=== PATIENT | female | born 1955 | race Caucasian/White ===

== ENCOUNTER 2018-07-01 09:00 | Outpatient (RCR) | payer BC, SELFPAY ==
--- NOTE | 2018-06-06 14:59 | PTTR_ITS ---
DATE: 06/06/18 SUBJECTIVE: Radha indicates today that she feels she is slowly gaining increased right UE/shoulder strength, but continues to struggle with active end range flexion. OBJECTIVE: Manual therapy: ([id number]). Mobs of the right glenohumeral jt. while in the supine position. Mobs included inferior and posterior glides, caudal distractions, and AAROM throughout all planes. Applied TFM to the anterior cuff and TP work throughout the frantz scapular region, upper traps and posterior cuff. Therapeutic procedures ([id number]). * x See flow sheet: focus was on scapular stabs and cuff strengthening. * Verbal and tactile cues were provided throughout today's session for proper positioning and isolation of specific muscles. * Declined ice at the end of today's session. Indicated she could ice at home. Direct treatment time: 45 min. Total treatment time: 45 min. SG/gc
--- NOTE | 2018-06-10 13:22 | PTTR_ITS ---
DATE: 06/10/18 SUBJECTIVE: Radha states that she is doing pretty well. She continues to c/o elbow pain with extension, although this is improving. She feels as though her pain level is also improving as is her ROM. OBJECTIVE: Manual therapy: ([id number]). mobilizations of right GH jt including posterior and inferior glides, distractions and ROM t/o all planes. I also worked her ROM in the prone position. STM t/o deltoid region and into her anterior shld/ pec region. Therapeutic procedures ([id number]). * x See flow sheet: for RTC strength and scap stabilizations. * x Provided skilled instruction in proper exercise performance: proper scapular positioning and postural cueing. Ended with cryo to shld x 10 min. Direct treatment time: 45 min Total treatment time: 55 min.
--- NOTE | 2018-06-13 08:45 | PTTR_ITS ---
DATE: 06/13/18 SUBJECTIVE: Patient reports she has no pain in her right shoulder. Has some pain in her neck and into the elbow. She states she has been compliant with her HEP and if she has a really busy day she will at least do the pulleys. She has follow up appointment with surgeon June 30. OBJECTIVE: Manual therapy: ([id number]). Right shoulder AROM at start of session was flexion 140 degrees, abduction 160 degrees, FIR to superior glutes, extension 35 degrees, ER 60 degrees, IR 45 degrees. Her left shoulder AROM is flexion 140 degrees, abduction 170, FIR to superior glutes, extension 35 degrees, ER 60 degrees, and IR 70 degrees. Performed right glenohumeral joint caudal distraction. Glenohumeral joint grade 2/3 inferior and posterior mobilizations. P/AAROM into flexion, scaption, ER, and IR. STM to anterior and posterior cuff, upper trapezius, and levator scapula. STM to posterior cuff, periscapular musculature, upper trapezius, and levator scapula in prone. Prone shoulder flexion mobilizations. TPR and CFM to the teres minor and infraspinatus provided. Right shoulder AROM after mobilizations and STM was flexion 150 degrees, abduction 170 degrees, ER 60 degrees, and IR 45 degrees. Therapeutic procedures ([id number]). [X] HEP review: Patient instructed in towel stretch for internal rotation and to also continue with sleeper stretch. [X] See flow sheet: Focused on right shoulder ROM, scapular stabilization , and rotator cuff strengthening. Incorporating eccentric control as well with promotion of end range strengthening. [X] Provided skilled instruction in proper exercise performance: for proper body mechanics and postural awareness. [X] Provided skilled manual cues to facilitate proper muscle recruitment and/or movement pattern: Continued with wellness portion of program x 15 minutes to complete ther-ex. Ended with cryotherapy to the right shoulder post session for 10 minutes. Reviewed further self mobilization stretches to incorporate increased flexion in prone and standing. Direct treatment time: 45 minutes Total treatment time: 70 minutes Nabila Bustamante, SPT Rosita Barnett, MPT
--- NOTE | 2018-06-17 08:45 | PTTR_ITS ---
DATE: June 17, 2018 SUBJECTIVE: Radha apologizes for being late to todays scheduled appt. She reports that she was able to get her arms down to her pillow overhead with the theracane stretch. She reports that this is the best that she has done in quite some time. She did not some increased soreness into her neck muscles following last treatment session. She knows that she continues to compensate with her cervical muscles due to the ongoing weakness of her shoulder. She is trying to keep an eye on this at home as well. OBJECTIVE: Manual therapy: ([id number]). Glenohumeral joint mobilization to the right shoulder in supine Gr III inferior and posterior glides. Caudal distractions and oscillations also provided. P/AAROM performed throughout all planes. CFM to the greater tuberosity and into the posterior cuff. TPR and STM provided throughout the entire anterior and posterior cuff. Remains restricted at end range consistent with capsular pattern. Emphasized frequent ROM to avoid restrictions from increasing. Therapeutic procedures: Completed Wellness portion of the program promoting RTC strength and scapular stabilization per flow sheet. Ended with cryotherapy post session for 10 minutes. Will continue to promote end range mobility as primary focus with aggressive stretching and mobilization within tolerance. Direct treatment time: 30 minutes Total treatment time: 70 minutes
--- NOTE | 2018-06-20 08:30 | PTTR_ITS ---
DATE: 06/20/18 SUBJECTIVE: Right shoulder is doing pretty good, feels like she is moving it more now. Elbow is slowly improving. Discussed avoiding lifting with palm down to avoid irritating extension soft tissue in the elbow region. OBJECTIVE: Manual therapy: ([id number]). Mobilization of right boris-hum jt while in supine consisting of inferior / posterior glides and caudal distraction. Performed A/AA/ PROM throughout all planes. TFM to anterior cuff / deltoids and PRT to posterior cuff, TPM to upper traps and lev scap while in prone. Therapeutic procedures ([id number]). * x See flow sheet: Focus on AAROM, scap stabilization and rotator cuff strengthening per protocol. * x Provided skilled instruction in proper exercise performance * x Provided skilled manual cues to facilitate proper muscle recruitment and/ or movement pattern * Ended session with cryotherapy x 10 minutes to right shoulder while in seated position. Direct treatment time: 50 minutes Total treatment time: 60 minutes
--- NOTE | 2018-06-24 08:30 | PTTR_ITS ---
DATE: SUBJECTIVE: Really feels like her shoulder is doing better. ROM and strength are improving. OBJECTIVE: Manual therapy: ([id number]). Mobilization of right boris-hum jt while in supine position consisting on inferior and posterior glides, caudal and lateral distraction, AA/AROM throughout all planes. TFM to anterior cuff, brief PRT to posterior cuff and TPM to upper traps / lev scap. Performed rhythmic stabs at 80, 90 and 100 degrees flexion against min resistance. Therapeutic procedures ([id number]). * x See flow sheet: Focus was on AAROM, scap stabilization and rotator cuff strengthening. * x Provided skilled instruction in proper exercise performance * x Provided skilled manual cues to facilitate proper muscle recruitment and/ or movement pattern Ended session with cryotherapy x 10 minutes while in seated position. Direct treatment time: 45 minutes Total treatment time: 55 minutes
--- NOTE | 2018-06-27 08:48 | PTTR_ITS ---
DATE: 06/27/18 SUBJECTIVE: Radha indicates she was muscle sore throughout bilateral UEs after her last P.T. session. Indicates her biggest complaint, at this point in time is of right elbow irritation. This comes and goes with activity. Indicates her shoulder joint is actually doing quite well. She is concerned that when she sees Dr. Sutton next week that he will request that she have a manipulation. States she feels as though her ROM has definitely improved. OBJECTIVE: Manual therapy: ([id number]). Mobs of the right glenohumeral jt while in supine. Mobs included inferior and posterior glides, caudal distraction, lateral distraction, and AA/PROM throughout all planes. This was performed in supine and prone positions. Did perform positional release techniques to the posterior cuff as well as brief trigger point work to the rhomboids and upper trap/levator scap region while in prone. Brief TFM to the anterior cuff was performed for desensitization. Therapeutic procedures ([id number]). * x See flow sheet: focus was on AAROM, scap stabilization and cuff strengthening. * Verbal and tactile cues were provided throughout session for proper positioning and isolation of specific muscles. * AAROM was noted to be approximately 10 less than the contralateral side with end range flexion. * Ended with cryotherapy x10 minutes applied to the right shoulder while seated at no charge. Direct treatment time: 50 min. Total treatment time: 60 min. SG/gc
--- NOTE | 2018-07-01 09:00 | PTTR_ITS ---
DATE: 07/01/18 See note filed in chart Manual therapy: ([id number]). GH joint mobilization grade 2-3, inferior/ posterior glides, caudal distractions, P/AAROM performed throughout all planes, PNF D1-D2, soft tissue anterior/posterior cuff, trigger point work. Held on further stabilization today due to continued findings of adhesive capsulitis, (+ ) capsular pattern increasing pain and restriction consistent with capsular pattern. Feel a manipulation might be needed at this time. Will follow up with Dr. Sutton tomorrow, will proceed per his order following this consultation. Direct treatment time: 25 mins Total treatment time: 25 mins KW/dl
== END 2018-07-05 23:59 | disposition home or self-care (01) ==
LOC: PT 09:00
PROVIDERS: PCP Family Medicine; Referring Provider Student in an Organized Health Care Education/Training Program; Visit Provider Student in an Organized Health Care Education/Training Program
DX: Z47.89 Encounter for other orthopedic aftercare (principal); M75.121 Complete rotator cuff tear or rupture of right shoulder, not specified as traumatic; M19.011 Primary osteoarthritis, right shoulder
CPT/HCPCS: 97110; 97140

== ENCOUNTER 2018-07-09 09:35 | Day surgery (SDC) | payer BC, SELFPAY ==
[2018-07-09] VITALS (7 sets, daily range): BP systolic 129–148; BP diastolic 49–70; PULSE 65–72; RESP 13–19; TEMP 36.2–36.6; O2SAT 95–97
--- NOTE | 2018-07-09 10:23 | W.PM.DSUDISC ---
Discharge Plan Discharge Details Reason For Visit: (R) SHOULDER FROZEN SHOULDER Attending Provider: Bassam Sutton Primary Care Provider: Jose France Disposition Patient Disposition: HOME Condition: Good Home Meds and New Rx's Prescriptions: Continue lancets 1 EACH misc 1 ea Miscellaneous DAILY Qty: 100 RF: 4 blood sugar diagnostic [OneTouch Ultra Test] 1 EACH strip 1 ea Miscellaneous BID Qty: 100 RF: 4 fexofenadine [Poonam Allergy] 180 MG tablet 180 mg PO DAILY RF: 0 PROVENTIL HFA 18 GM HFA.AER.AD 2 puff Inhalation Q4H PRN Qty: 1 RF: 5 metformin 1,000 MG tablet 1,000 mg PO BID Qty: 180 RF: 3 lisinopril 5 MG tablet 5 mg PO DAILY Qty: 90 RF: 3 glipizide 5 MG tablet 5 mg PO BID Qty: 180 RF: 4 triamcinolone acetonide [Nasacort] 10.8 ML aerosol,spray 10.8 ml NS DAILY PRN PRNRF: 0 ibuprofen 800 MG tablet 800 mg PO TID Qty: 180 RF: 3 acetaminophen [Mapap Extra Strength] 500 MG tablet 1,000 mg PO Q8H PRN PRNQty: 180 RF: 0 oxycodone 5 MG tablet 2.5 - 5 mg PO Q4H PRN PRN (Reason: Pain) Qty: 10 RF: 0 Discharge Instructions Additional Instructions: Activity: You may move the arm as tolerated. You will have a sling for comfort. You should start physical therapy within 2 days. Medications: You should take Tylenol and Ibuprofen. Oxycodone for breakthrough pain. Follow-up: 1 -2 weeks Equipment/Supplies: Sling Activity:: Activity as Tolerated Diet:: As Tolerated Discharge Orders Discharge Orders: Discharge Order (Routine); Ordered 07/09/18 Ordered By: Bassam Sutton DS: Diagnosis Discharge Diagnosis (1) Secondary adhesive capsulitis of right shoulder: Start date: 07/09/18 Status: Acute
[2018-07-09] MEDS: Lactated Ringers 1,000 ML 80 ML IV ×2 (10:25→11:26)
[2018-07-09] MEDS: methylPREDNISolone ACETATE 80 MG/ML VIAL (10:40)
[2018-07-09] MEDS: Bupivacaine 0.5% Pres-Free 30 ML VIAL (10:40)
--- NOTE | 2018-07-10 07:35 | ROE_ITS ---
Date of service: 07/09/18 Time of Service: 11:31 Operative Note Date of procedure: 07/09/18 Pre-op diagnosis: Right Shoulder Adhesive Capsulitis Post-op diagnosis: same Procedure: Right Shoulder Manipulation Under Anesthesia with Intraarticular Injection Surgeon: Bassam Sutton Anesthesia: ELLY Estimated blood loss (mL): 0 Pathology: none sent Complications: None Patient was transported to: PACU Patient's condition: stable Indications: Radha is a 63 year old female with adhesive capsulitis of the right shoulder. A trial of nonoperative and conservative treatment options were attempted without improvement. Given the persistence of dysfunction, I recommended a manipulation under anesthesia with injection. I discussed the risk of the procedure to include recurrence, stiffness, weakness, tendon rupture , fracture. Despite these risks, the patient elects to proceed. Findings: PREOP RANGE OF MOTION: Abduction = 70, Forward Flexion = 110, External Rotation = 20 POSTOP RANGE OF MOTION: Abduction = 170, Forward Flexion = 180, External Rotation = 75 Procedure Description: Radha was greeted in the preoperative holding area. Consent was reviewed with the patient and signed. History physical was updated. Correct site was marked. Patient was then transferred back to the operative suite. The correct site was identified and a timeout was performed for safety and per hospital protocol. A general anesthetic was administered. Intra-articular injection of the right shoulder was performed using an anterior approach and a spinal needle. I was able to inject 6 cc of 0.5% bupivacaine along with 80 mg of Depo-Medrol without difficulty. A Band-Aid was applied. Preoperative range of motion was checked and is noted in the above findings section. The manipulation was then performed in standard protocol focusing first on forward flexion, followed by abduction, followed by external rotation. This was cycled through a few times with notable crepitus and adhesion disruption both audible and palpable. Postoperative range of motion was then measured and is documented above in the findings. A simple sling was applied. Radha tolerated procedure well and was transferred back to the PACU in stable condition. Physical therapy will begin immediately home-based exercises are provided to the patient.
== END 2018-07-09 12:24 | disposition home or self-care (01) ==
PROVIDERS: PCP Family Medicine; Visit Provider Student in an Organized Health Care Education/Training Program
PROC: (CPT 23700; principal; 2018-07-09 13:20)
DX: M75.01 Adhesive capsulitis of right shoulder (principal); E11.9 Type 2 diabetes mellitus without complications
CPT/HCPCS: 20610; 23700; J1040; J1885; L3650

== ENCOUNTER 2018-10-15 00:45 | Outpatient (CLI) | payer BC, SELFPAY ==
--- NOTE | 2018-10-15 07:52 | DI.MRI_ITS ---
SYMPTOMS/DIAGNOSIS: WEAKNESS AND PARESTHESIAS, LEFT ARM, LEFT CERVICAL RADICULOPATHY, M54.12 MRI OF THE CERVICAL SPINE: T1, T2, FLAIR, STIR and T2 3D sagittal and gradient-echo axial sequences were performed. Comparison is made with plain films dated May,. Exam is limited by patient motion. C2-3 and C3-4 levels are unremarkable. There is slight disc bulging at C4-5. There are facet degenerative changes, greater on the left side, causing neural foraminal narrowing. At C5-6, there are disc osteophytes projecting mainly laterally, causing bilateral neural foraminal narrowing. Mild disc bulging is seen at C6-7. C7-T1 and T1-2 are unremarkable. There is no significant central canal stenosis. IMPRESSION: Degenerative disc osteophytes and facet degenerative changes cause left neural foraminal narrowing at C4-5 and bilateral neural foraminal narrowing at C5-6. No disc herniation is seen. The cord signal appears normal.
== END 2018-10-15 01:05 ==
PROVIDERS: PCP Family Medicine; Visit Provider Family Medicine
DX: R29.898 Other symptoms and signs involving the musculoskeletal system (principal); R20.9 Unspecified disturbances of skin sensation; M54.12 Radiculopathy, cervical region; M50.321 Other cervical disc degeneration at C4-C5 level; M50.322 Other cervical disc degeneration at C5-C6 level
CPT/HCPCS: 72141

== ENCOUNTER 2018-12-06 11:05 | Outpatient (CLI) | payer BC, SELFPAY ==
[2018-12-06 13:41] LABS: Hemoglobin A1C 6.8 % (4.5-6.2)
== END 2018-12-06 11:25 ==
PROVIDERS: PCP Family Medicine; Visit Provider Family Medicine
DX: E11.9 Type 2 diabetes mellitus without complications (principal)
CPT/HCPCS: 36415; 83036

== ENCOUNTER 2019-02-11 08:57 | Outpatient (CLI) | payer BC, SELFPAY ==
--- NOTE | 2019-02-11 06:00 | DI.RAD_ITS ---
SYMPTOM/DIAGNOSIS: CERVICAL RADICULOPATHY, CERVICAL EPIDURAL STEROID INJECTION C-ARM: Fluoroscopy Time: 27.1sec, 8.49mGy Fluoroscopy was utilized by Dr. Rodriguez during the performance of a cervical epidural steroid injection. Please refer to the procedure report for complete details.
[2019-02-11 09:04] VITALS: BP 124/57; PULSE 66; RESP 22; TEMP 36.5; O2SAT 96
[2019-02-11 09:39] VITALS: BP 133/52; PULSE 72; RESP 18; O2SAT 100
--- NOTE | 2019-02-11 09:41 | PDOC.PAIN_ITS ---
Pain Clinic Procedure Note Current Active Problems Problem Status Onset Left cervical radiculopathy Chronic Cervical Epidural Steroid Injection KYLE HAMM has been referred to the [facility] for interlaminar cervical epidural steroid injection. COMMENTS: I review her Pain Clinic evaluation by Tyson Leticia from 02/04/19 and her most recent cervical spine MRI. Patient was interviewed and the medical record reviewed. There were no medical, pharmacologic, radiographic or other structural contraindications to attempting fluoroscopically guided epidural steroid injection. Risks and expected side effects as well as potential benefit of the procedure were reviewed and voiced concerns addressed. The printed consent form was signed and witnessed. Standard time-out procedure was performed. The patient was placed in the prone position on the fluoroscopy table and automa ximena blood pressure cuff and pulse oximeter applied. The skin entry point for entering the epidural space by a midline C7-T1 interlaminar approach was identified under fluoroscopy and marked. Following thorough Chlorhexadine preparation of the skin and draping and 1% lidocaine infiltration of the skin entry point and subcutaneous tissues, an 18 gauge Tuohy needle was placed under fluoroscopic guidance and with loss of resistance technique into the epidural space. Upon needle placement and loss of resistance there were no paresthesiae or return of blood or CSF through the needle. 1ml of Omnipaque 240 were injected with clear epidural spread in the A/P, oblique views. 15mg of preservative-free Dexamethasone with 1ml sterile normal saline were injected through the needle with no unusual discomfort expressed. The needle was removed without difficulty. A bandage was placed. Vital signs were stable throughout the procedure and were as recorded in the docflowsheet by the nursing staff. If given, dosages of intravenous drugs for anxiolysis and analgesia were documented in MAR. Follow up plans and appointments were discussed. Post procedure instruction was given as documented in nursing documentation and having met discharge criteria and was discharged from the [facility]. COMMENTS: If this procedure is found to be helpful, it can be completed up to 3 times per 12 months. CC: Jose France MD
[2019-02-11] MEDS: Dexamethasone Sod. Phos./Pres-Free 10 MG/ML VIAL IJ (09:44)
[2019-02-11] MEDS: Omnipaque 240 MG/ML 50 ML BTL IJ (09:45)
== END 2019-02-11 09:17 ==
PROVIDERS: PCP Family Medicine; Visit Provider Preventive Medicine Occupational Medicine
DX: M54.12 Radiculopathy, cervical region (principal)
CPT/HCPCS: 62321; 72040; Q9967

== ENCOUNTER 2019-06-26 08:13 | Outpatient (CLI) | payer BC, SELFPAY ==
[2019-06-26 12:56] LABS: Hemoglobin A1C 6.6 % (4.5-6.2)
[2019-06-26 13:08] LABS: Anion Gap 11.4 mmol/L (3-11); BUN 16 mg/dL (7-18); CO2 25.6 mmol/L (21.0-32.0); CREATININE 0.57 mg/dL (0.55-1.02); Calculated LDL 169 mg/dL; Chloride 101 mmol/L (98-107); Cholesterol 241 mg/dL (50-200); Glucose 128 mg/dL (70-100); HDL Cholesterol 47 mg/dL (40-60); Potassium 4.8 mmol/L (3.5-5.1); Sodium 138 mmol/L (136-145); Triglyceride 126 mg/dL (30-150)
== END 2019-06-26 08:33 ==
PROVIDERS: PCP Family Medicine; Visit Provider Family Medicine
DX: E11.9 Type 2 diabetes mellitus without complications (principal); I10 Essential (primary) hypertension
CPT/HCPCS: 36415; 80048; 80061; 83721; 83036

== ENCOUNTER 2019-12-25 00:15 | Outpatient (CLI) | payer BC, SELFPAY ==
[2019-12-25 10:47] LABS: Calculated LDL 161 mg/dL (<100); Cholesterol 236 mg/dL (<200); HDL Cholesterol 47 mg/dL (40-60); Triglyceride 144 mg/dL (<150)
[2019-12-25 12:29] LABS: Hemoglobin A1C 7.1 % (3.8-5.6)
== END 2019-12-25 00:35 ==
PROVIDERS: PCP Family Medicine; Visit Provider Family Medicine
DX: E11.9 Type 2 diabetes mellitus without complications (principal)
CPT/HCPCS: 36415; 80061; 83036

== ENCOUNTER 2020-05-24 02:36 | Outpatient (CLI) | payer BC, SELFPAY ==
[2020-05-24 12:45] LABS: Hemoglobin A1C 6.7 % (3.8-5.6)
== END 2020-05-24 02:56 ==
PROVIDERS: PCP Family Medicine; Visit Provider Family Medicine
DX: E11.9 Type 2 diabetes mellitus without complications (principal)
CPT/HCPCS: 36415; 83036

== ENCOUNTER 2020-08-17 01:49 | Outpatient (CLI) | payer BC, SELFPAY ==
[2020-08-17 12:59] LABS: Hemoglobin A1C 6.7 % (<5.7)
[2020-08-17 13:20] LABS: COMMENT (LAB VIEW ONLY) 20.66 mg/dL; Microalb ug/mg Crea 21.8 ug/mg Cr
== END 2020-08-17 02:09 ==
PROVIDERS: PCP Nurse Practitioner; Visit Provider Nurse Practitioner
DX: E11.9 Type 2 diabetes mellitus without complications (principal)
CPT/HCPCS: 36415; 82043; 82565; 82570; 83036

== ENCOUNTER 2020-09-16 15:07 | Outpatient (CLI) | payer BC, SELFPAY ==
--- NOTE | 2020-09-16 13:15 | DI.RAD_ITS ---
EXAM: XR HAND RT LIMITED CLINICAL HISTORY: right little finger mass in palm. TECHNIQUE: 2D digital imaging was performed. COMPARISON: No exams were available for comparison FINDINGS: BONES: No acute fracture is present. No bony destructive lesion is seen. JOINTS: No dislocation present. SOFT TISSUE: Normal. No evidence of a soft tissue mass. IMPRESSION: No evidence of a soft tissue mass or abnormal soft tissue calcification. If there is continued anay rn, an MRI may be obtained for further evaluation. DATA REPOSITORY: RADIATION DOSE DELIVERED:
== END 2020-09-16 15:27 ==
PROVIDERS: PCP Nurse Practitioner; Referring Provider Nurse Practitioner; Visit Provider Physician Assistant
DX: R22.31 Localized swelling, mass and lump, right upper limb (principal)
CPT/HCPCS: 73120

== ENCOUNTER 2020-10-12 07:55 | Day surgery (SDC) | payer BC, SELFPAY ==
[2020-10-12 07:56] VITALS: BP 150/82; PULSE 62; RESP 20; TEMP 36.7; O2SAT 98
--- NOTE | 2020-10-12 09:17 | PDOC.DSDIS_ITS ---
Discharge Plan Disposition Patient Disposition: HOME Condition: Good Discharge Details Reason For Visit: Right little finger ganglion cyst & trigger finger Attending Provider: Bassam Sutton Primary Care Provider: Tasneem Chaudhary Home Meds and New Rx's Prescriptions: New acetaminophen 500 mg tablet 1,000 mg PO Q8H PRN (Reason: pain) Qty: 60 RF: 2 ibuprofen 600 mg tablet 600 mg PO TID PRN (Reason: pain) Qty: 60 RF: 0 Continued metformin 1,000 mg tablet 1,000 mg PO BID Qty: 180 RF: 3 omega 8-txs-oda-fish oil [Fish Oil] 1,200 (144-216) mg capsule 1 cap PO DAILY RF: 0 Centrum Silver 0.4-300-250 mg-mcg-mcg tablet 1 tab PO DAILY RF: 0 (DME) lancets 1 EACH misc 1 ea Miscellaneous DAILY Qty: 100 RF: 4 (DME) OneTouch Ultra Test 1 EACH strip 1 ea Miscellaneous BID Qty: 100 RF: 4 fexofenadine [Poonam Allergy] 180 MG tablet 180 mg PO DAILY RF: 0 glipizide 5 mg tablet 5 mg PO BID Qty: 180 RF: 4 albuterol sulfate [Proventil HFA] 90 mcg/actuation HFA aerosol inhaler 2 puff IH Q4H PRN (Reason: bronchospasm) Qty: 18 RF: 4 triamcinolone acetonide [Nasacort] 10.8 ML aerosol,spray 10.8 ml NS DAILY PRN PRNRF: 0 gabapentin 300 mg Capsule 300 mg PO BID RF: 0 Glucosamine Chondroitin 550-30-1 mg Capsule 2 cap PO DAILY RF: 0 Discontinued ibuprofen 800 mg tablet 800 mg PO TID Qty: 180 RF: 3 acetaminophen [Mapap Extra Strength] 500 MG tablet 1,000 mg PO Q8H PRN PRNQty: 180 RF: 0 Discharge Instructions Stand Alone Forms: Herman Sierra, Ángel Aj (DSU) Referrals: Bassam Sutton MD [ [facility] STAFF PHYSICIAN] - Activity:: Elevate Remove Dressings/Wound Care:: 72 hours Shower/Bathe:: 72 hours Diet:: As Tolerated Discharge Orders Discharge Orders: Discharge Order (Routine); Ordered 10/12/20 Ordered By: Chelsea Pratt Discharge Data Discharge Date/Time-TO BE ENTERED AT DEPARTURE: 10/12/20 10:45 Discharge Comment: Pt was escorted out to her daughter's car. DS: Diagnosis Discharge Diagnosis (1) Ganglion of flexor tendon sheath of right little finger: Status: Acute (2) Tendon nodule: Status: Acute
[2020-10-12 09:51] VITALS: BP 156/89; PULSE 64; RESP 18; O2SAT 98
[2020-10-12 10:00] VITALS: BP 160/66; PULSE 64; RESP 20; O2SAT 98
[2020-10-12] MEDS: Sodium Bicarbonate 50 MEQ/50 ML VIAL (10:10)
[2020-10-12 10:15] VITALS: BP 134/76; PULSE 72; RESP 20; O2SAT 98
--- NOTE | 2020-10-12 16:54 | W.PM.OP ---
Date of service: 10/12/20 Time of Service: 10:54 Operative Note Operative Note DATE OF PROCEDURE: 10/12/20 PRE-OP DIAGNOSIS: Right Little Finger Cyst POST-OP DIAGNOSIS: same PROCEDURE: Cyst excision from flexor tendon of right little finger with A1 jg release SURGEON: Bassam Sutton ANESTHESIA: local ESTIMATED BLOOD LOSS: 0 PATHOLOGY: none sent TOURNIQUET TIME: 0 COMPLICATIONS: None Patient was transported to: same day Patient's condition: stable Indications: I have seen Radha in clinic for symptoms of flexor tendon cyst. The catching, clicking, locking, and pain limited function. I discussed surgical excision with trigger finger release with the patient. I reviewed the risks of the procedure to include, but not limited to, bleeding, infection, pain, stiffness, incomplete release, damage to nerves or vessels, continued catching, recurrence. Despite these risks, the patient elected to proceed. Findings: There is a ganglion cyst seen just proximal and radial to the A1 jg. Is also somewhat superficial. It was identified dissected away from the surrounding tissue and removed. The A1 jg was released and cyst material and synovitis was resected directly from the tendon sheath. Procedure Description: Radha was greeted in the preoperative holding area where the correct side was identified and marked. The consent was reviewed with the patient and signed. All questions were answered. Radha was taken back to the operating room. The patient was placed into the supine position on the operating room table with the right arm on an arm board. All bony prominences were well padded. No prophylactic antibiotics were administered since this was a clean, elective hand surgical case. The right arm was then prepped with Chloraprep and draped in a standard fashion with stockinette and extremity drape. A timeout to confirm correct identity, side and site, procedure, allergies, anesthesia, and medical concerns was performed. The surgical site was marked as a longitudinal incision directly over the A1 jg of the involved digit. This was confirmed with palpation during finger flexion. This area, overlying the metacarpal head, was then anesthetized with 1% Lidocaine with epinephrine and buffered with sodium bicarbonate. The patient tolerated this well and once the anesthetic had setup, the procedure began. A longitudinal incision was made through skin only, approximately 1cm. The deep tissues were dissected bluntly. The cyst was easily identifiable slightly superficial and radial to the A1 jg. This was dissected away from surrounding tissue. The cyst was evacuated of its thickened, clear fluid. The cyst sac was followed down to the proximal edge of the A1 jg. At this point it was transected. Dissection was made around the A1 jg. There were no crossing structures over the A1 jg. The proximal edge of the jg was identified and the jg was incised with tenotomy scissors. There was a release of the tendons once this was fully released. The tendons were then removed from the wound and inspected. Excess synovium was resected. There is also a large cyst capsule which seem to follow along the tendon some cells. This was pulled proximally and then transected. The tendons were then returned and the patient was asked to move the finger into deep flexion and back to extension. There was no signs of catching nor missed cyst capsule. There is no significant bleeding. The wound was then irrigated and the skin was closed with a 4-0 Nylon. This was dressed with gauze and a Conform dressing. The patient tolerated the procedure well and was returned to the Same Day Surgery area in a stable condition suffering no known complication.
== END 2020-10-12 10:45 | disposition home or self-care (01) ==
PROVIDERS: PCP Nurse Practitioner; Visit Provider Student in an Organized Health Care Education/Training Program
PROC: (CPT 26160; principal; 2020-10-12 10:45)
PROC: (CPT 26055; 2020-10-12 10:45)
DX: M67.441 Ganglion, right hand (principal)
CPT/HCPCS: 26160

== ENCOUNTER 2020-10-26 07:51 | Day surgery (SDC) | payer BC, SELFPAY ==
[2020-10-26 08:03] VITALS: BP 143/62; PULSE 59; RESP 18; TEMP 36.3; O2SAT 99
--- NOTE | 2020-10-26 08:07 | PDOC.DSDIS_ITS ---
Documented by User: Chelsea Pratt 10/26/20 08:09 Discharge Plan Disposition Patient Disposition: HOME Condition: Good Discharge Details Reason For Visit: Left middle finger trigger finger Attending Provider: Bassam Sutton Primary Care Provider: Tasneem Chaudhary Home Meds and New Rx's Prescriptions: Continued metformin 1,000 mg tablet 1,000 mg PO BID Qty: 180 RF: 3 omega 4-nju-gwc-fish oil [Fish Oil] 1,200 (144-216) mg capsule 1 cap PO DAILY RF: 0 Centrum Silver 0.4-300-250 mg-mcg-mcg tablet 1 tab PO DAILY RF: 0 (DME) lancets 1 EACH misc 1 ea Miscellaneous DAILY Qty: 100 RF: 4 (DME) OneTouch Ultra Test 1 EACH strip 1 ea Miscellaneous BID Qty: 100 RF: 4 fexofenadine [Poonam Allergy] 180 MG tablet 180 mg PO DAILY RF: 0 glipizide 5 mg tablet 5 mg PO BID Qty: 180 RF: 4 albuterol sulfate [Proventil HFA] 90 mcg/actuation HFA aerosol inhaler 2 puff IH Q4H PRN (Reason: bronchospasm) Qty: 18 RF: 4 triamcinolone acetonide [Nasacort] 10.8 ML aerosol,spray 10.8 ml NS DAILY PRN PRNRF: 0 gabapentin 300 mg Capsule 300 mg PO BID RF: 0 Glucosamine Chondroitin 550-30-1 mg Capsule 2 cap PO DAILY RF: 0 acetaminophen 500 mg tablet 1,000 mg PO Q8H PRN (Reason: pain) Qty: 60 RF: 2 ibuprofen 600 mg tablet 600 mg PO TID PRN (Reason: pain) Qty: 60 RF: 0 Discharge Instructions Stand Alone Forms: Ángel Gardner (DSCalvin) Referrals: Bassam Sutton MD [ [facility] STAFF PHYSICIAN] - Activity:: Elevate Remove Dressings/Wound Care:: 72 hours Shower/Bathe:: 72 hours Diet:: As Tolerated Discharge Orders Discharge Orders: Discharge Order (Routine); Ordered 10/26/20 Ordered By: Chelsea Pratt Discharge Data Discharge Date/Time-TO BE ENTERED AT DEPARTURE: 10/26/20 10:00 DS: Diagnosis Discharge Diagnosis (1) Trigger finger, left middle finger: Status: Acute Documented by User: Bassam Sutton MD 10/26/20 10:35 Discharge Plan Disposition Patient Disposition: HOME Condition: Good Discharge Details Reason For Visit: Left middle finger trigger finger Attending Provider: Bassam Sutton Primary Care Provider: Tasneem Chaudhary Home Meds and New Rx's Prescriptions: Continued metformin 1,000 mg tablet 1,000 mg PO BID Qty: 180 RF: 3 omega 6-rqg-ymx-fish oil [Fish Oil] 1,200 (144-216) mg capsule 1 cap PO DAILY RF: 0 Centrum Silver 0.4-300-250 mg-mcg-mcg tablet 1 tab PO DAILY RF: 0 (DME) lancets 1 EACH misc 1 ea Miscellaneous DAILY Qty: 100 RF: 4 (DME) OneTouch Ultra Test 1 EACH strip 1 ea Miscellaneous BID Qty: 100 RF: 4 fexofenadine [Poonam Allergy] 180 MG tablet 180 mg PO DAILY RF: 0 glipizide 5 mg tablet 5 mg PO BID Qty: 180 RF: 4 albuterol sulfate [Proventil HFA] 90 mcg/actuation HFA aerosol inhaler 2 puff IH Q4H PRN (Reason: bronchospasm) Qty: 18 RF: 4 triamcinolone acetonide [Nasacort] 10.8 ML aerosol,spray 10.8 ml NS DAILY PRN PRNRF: 0 gabapentin 300 mg Capsule 300 mg PO BID RF: 0 Glucosamine Chondroitin 550-30-1 mg Capsule 2 cap PO DAILY RF: 0 acetaminophen 500 mg tablet 1,000 mg PO Q8H PRN (Reason: pain) Qty: 60 RF: 2 ibuprofen 600 mg tablet 600 mg PO TID PRN (Reason: pain) Qty: 60 RF: 0 Discharge Instructions Stand Alone Forms: Herman Cheng Finger Release, Ángel Aj (DSU) Referrals: Bassam Sutton MD [ [facility] STAFF PHYSICIAN] - Activity:: Elevate Remove Dressings/Wound Care:: 72 hours Shower/Bathe:: 72 hours Diet:: As Tolerated Discharge Orders Discharge Orders: Discharge Order (Routine); Ordered 10/26/20 Ordered By: Chelsea Pratt Discharge Data Discharge Date/Time-TO BE ENTERED AT DEPARTURE: 10/26/20 10:00
[2020-10-26 09:17] VITALS: BP 143/54; PULSE 77; RESP 20; O2SAT 99
[2020-10-26 09:33] VITALS: BP 145/48; PULSE 66; RESP 22; O2SAT 97
[2020-10-26] MEDS: Sodium Bicarbonate 50 MEQ/50 ML VIAL (09:36)
--- NOTE | 2020-10-26 10:35 | W.PM.OP ---
Date of service: 10/26/20 Time of Service: 09:45 Operative Note Operative Note DATE OF PROCEDURE: 10/26/20 PRE-OP DIAGNOSIS: Left Middle Finger Trigger Finger POST-OP DIAGNOSIS: same PROCEDURE: Trigger Finger Release - Left Middle Finger SURGEON: Bassam Sutton ANESTHESIA: local ESTIMATED BLOOD LOSS: 0 PATHOLOGY: none sent TOURNIQUET TIME: 0 COMPLICATIONS: None Patient was transported to: same day Patient's condition: stable Indications: I have seen Radha in clinic for symptoms of a trigger finger. The catching, clicking, locking, and pain limited function. The diagnosis of trigger finger was evident. The symptoms had not responded to conservative measures. I discussed trigger finger release with the patient. I reviewed the risks of the procedure to include, but not limited to, bleeding, infection, pain, stiffness, incomplete release, damage to nerves or vessels, continued catching, recurrence. Despite these risks, the patient elected to proceed. Findings: There was a tightened A1 jg which was released. The flexor tendons were inspected and the patient was able to move the finger without any catching, clicking, or locking. Procedure Description: Radha was greeted in the preoperative holding area where the correct side was identified and marked. The consent was reviewed with the patient and signed. All questions were answered. Radha was taken back to the operating room. The patient was placed into the supine position on the operating room table with the left arm on an arm board. All bony prominences were well padded. No prophylactic antibiotics were administered since this was a clean, elective hand surgical case. The left arm was then prepped with Chloraprep and draped in a standard fashion with stockinette and extremity drape. A timeout to confirm correct identity, side and site, procedure, allergies, anesthesia, and medical concerns was performed. The surgical site was marked as a longitudinal incision directly over the A1 jg of the left middle finger. This was confirmed with palpation during finger flexion. This area, overlying the metacarpal head, was then anesthetized with 1% Lidocaine. The patient tolerated this well and once the anesthetic had setup, the procedure began. A longitudinal incision was made through skin only, approximately 1cm. The deep tissues were dissected bluntly. Once the A1 jg and flexor tendons were identified the soft tissue including neurovascular structures were retracted medially and laterally. There were no crossing structures over the A1 jg. The proximal edge of the gj was identified and the jg was incised with tenotomy scissors. There was a release of the tendons once this was fully released. The tendons were then removed from the wound and inspected. Excess synovium was resected. The tendons were then returned and the patient was asked to move the finger into deep flexion and back to extension. There was no recreation of the pre-operative symptoms. The hand was then once more inspected for any A0 jg or area of possible constriction. The wound was then irrigated and the skin was closed with a 4-0 Nylon. This was dressed with gauze and a Conform dressing. The patient tolerated the procedure well and was returned to the Same Day Surgery area in a stable condition suffering no known complication.
== END 2020-10-26 10:00 | disposition home or self-care (01) ==
PROVIDERS: PCP Nurse Practitioner; Visit Provider Student in an Organized Health Care Education/Training Program
PROC: (CPT 26055; principal; 2020-10-26 09:30)
DX: M65.332 Trigger finger, left middle finger (principal)
CPT/HCPCS: 26055

== ENCOUNTER 2020-12-27 10:33 | Outpatient (CLI) | payer BC, SELFPAY ==
--- NOTE | 2020-12-27 09:30 | DI.RAD_ITS ---
EXAM: XR FINGER LT MIDDLE CLINICAL HISTORY: left middle finger pain at PIP. TECHNIQUE: 2D digital imaging was performed. COMPARISON: CR XR HAND RT LIMITED from 09/16/2020 FINDINGS: There is no evidence of fracture or dislocation no radiopaque foreign body. No osseous lesions. Min imal degenerative changes. No significant joint space narrowing. No osteophytes. There is a small degenerative subarticular cyst in the head of the proximal phalanx noted, this measures 2 millimeters . Another 3 millimeter degenerative subarticular cyst is seen at the level of the IP joint within th e head of the middle phalanx. No radiopaque foreign body. No ominous osseous lesions IMPRESSION: Mild degenerative changes, as described above. DATA REPOSITORY: RADIATION DOSE DELIVERED:
== END 2020-12-27 10:34 | disposition home or self-care (01) ==
LOC: DIORS 10:33
PROVIDERS: PCP Nurse Practitioner; Referring Provider Nurse Practitioner; Visit Provider Physician Assistant
DX: M79.645 Pain in left finger(s) (principal); M65.322 Trigger finger, left index finger
CPT/HCPCS: 73140

== ENCOUNTER 2021-03-09 04:20 | Outpatient (CLI) | payer BC, SELFPAY ==
[2021-03-09 12:53] LABS: CREATININE 0.8 mg/dL (0.55-1.02); Potassium 4.3 mmol/L (3.5-5.1)
[2021-03-09 13:03] LABS: Hemoglobin A1C 6.4 % (<5.7)
[2021-03-09 13:06] LABS: Calculated LDL 166 mg/dL (<100); Cholesterol 244 mg/dL (<200); HDL Cholesterol 54 mg/dL (40-60); Triglyceride 120 mg/dL (<150)
== END 2021-03-09 04:21 | disposition home or self-care (01) ==
LOC: LOS 04:21
PROVIDERS: PCP Nurse Practitioner; Visit Provider Nurse Practitioner
DX: I10 Essential (primary) hypertension (principal); E11.9 Type 2 diabetes mellitus without complications; E78.5 Hyperlipidemia, unspecified
CPT/HCPCS: 36415; 80061; 82565; 83036; 84132

== ENCOUNTER 2021-03-15 02:03 | Outpatient (CLI) | payer BC, SELFPAY ==
--- NOTE | 2021-03-15 07:15 | DI.MAMMO_ITS ---
Exam(s) MAMMO SCREENING EXAM: MAMMO SCREENING CLINICAL HISTORY: screening,Z12.39 TECHNIQUE: Mammograms were interpreted according to the usual protocol including computer analysis w [facility] CAD system, tomosynthesis and C-view imaging. COMPARISON: FINDINGS: The breasts are of moderate density with fairly symmetrical distribution of fibroglandular tissue. N o dominant mass or clumped microcalcification is identified in either breast. There are no prior exa minations available for comparison. IMPRESSION: No specific evidence of malignancy at this time. Routine screening examinations are suggested at yea rly intervals in this age group according to the ACS ACR guidelines. BI-RADS Category 1 - Negative Breast Density - Category B - Scattered areas of fibroglandular density
== END 2021-03-15 02:23 ==
PROVIDERS: PCP Nurse Practitioner; Visit Provider Nurse Practitioner
DX: Z12.31 Encounter for screening mammogram for malignant neoplasm of breast (principal)
CPT/HCPCS: 77063; 77067

== ENCOUNTER 2022-03-10 02:15 | Outpatient (CLI) | payer BC, SELFPAY ==
[2022-03-10 12:34] LABS: CREATININE 0.8 mg/dL (0.55-1.02); Calculated LDL 163 mg/dL (<100); Cholesterol 254 mg/dL (<200); HDL Cholesterol 58 mg/dL (40-60); Potassium 4.3 mmol/L (3.5-5.1); Triglyceride 168 mg/dL (<150)
[2022-03-10 12:36] LABS: COMMENT (LAB VIEW ONLY) 26.92 mg/dL; Microalb ug/mg Crea 78.8 ug/mg Cr
== END 2022-03-10 02:16 | disposition home or self-care (01) ==
LOC: LOS 02:15
PROVIDERS: PCP Nurse Practitioner; Visit Provider Nurse Practitioner
DX: E11.9 Type 2 diabetes mellitus without complications (principal); E78.5 Hyperlipidemia, unspecified; I10 Essential (primary) hypertension
CPT/HCPCS: 36415; 80061; 82043; 82565; 82570; 84132

== ENCOUNTER 2022-03-30 16:02 | Outpatient (REF) | payer BC, SELFPAY ==
--- NOTE | 2022-03-30 15:45 | PAPFT_PTH ---
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
== END 2022-03-30 16:03 | disposition home or self-care (01) ==
LOC: LBN 16:02
PROVIDERS: PCP Nurse Practitioner; Visit Provider Nurse Practitioner
DX: Z12.4 Encounter for screening for malignant neoplasm of cervix (principal); Z11.51 Encounter for screening for human papillomavirus (HPV)
CPT/HCPCS: 88142; 87624

== ENCOUNTER → 2022-05-11 01:27 | Outpatient (CLI) | payer BC, SELFPAY ==
--- NOTE | 2022-05-11 08:30 | DI.CTLCSR_ITS ---
Exam(s) CT CHEST LUNG CANCER SCREEN EXAM: CT CHEST LUNG CANCER SCREEN CLINICAL HISTORY: Screening for lung cancer,CURRENT SMOKER, F17.210. TECHNIQUE: Imaging Protocol: Low Dose Technique CONTRAST MATERIAL: None COMPARISON: CR CHEST 2 VIEWS PA,LAT from 10/18/2010 FINDINGS: CHEST: LUNGS: There are no ominous pulmonary nodules. There are no confluent infiltrates. No pleural effusi ons. MEDIASTINUM: There is no obvious hilar nor mediastinal adenopathy. CARDIAC: Heart size normal. Mild thickening of the pericardium is noted. There is no prominent frantz cardial effusion.Caliber of the thoracic aorta is within normal limits. OTHER: Gallbladder surgically absent. No obvious adrenal. OSSEOUS: No significant osseous lesions.. IMPRESSION: 1. No significant pulmonary nodules. 2. No pleural effusions nor intrathoracic adenopathy 3. Lung RADS Cat 1 - Negative: No nodules and definitely benign nodules Lung-RADS 1.0 CATEGORIES: Category 0 - Prior chest CT exam(s) being located for comparison. Category 1 - Annual screening in 12 months. No nodules or definitely benign nodules. Category 2 - Annual screening in 12 months. Benign appearance. Nodules with low likelihood of becomin g active cancer. Category 3 - 6-month follow-up. Probably benign. Short-term follow-up suggested. Nodules with low lik elihood of becoming active cancer. Category 4A - 3-month follow-up and CT/PET if >8 mm in size. Suspicious finding. Findings which requi re additional testing. Category 4B - Findings which require additional testing and tissue sampling. Category 4X - Category 3 or 4 nodules with additional features or imaging findings that increases the suspicion of malignancy. Modifier S- Potentially clinically significant findings (non lung cancer) RADIATION DOSE DELIVERED: 98.48mGy.cm Total DLP 2.21mGy CTDIvol DATA REPOSITORY: All CT scans at this facility are submitted to the National Radiology Data Registry (NRDR) Dose Index Registry (DIR) with the [employer] (ACR). RADIATION OPTIMIZATION: All CT scans at this facility use at least one of these dose optimization te chniques: automated exposure control; mA and/or kV adjustment per patient size (includes targeted exa ms where dose is matched to clinical indication); or iterative reconstruction.
--- NOTE | 2022-05-11 08:30 | DI.MAMMO_ITS ---
Exam(s) MAMMO SCREENING EXAM: MAMMO SCREENING CLINICAL HISTORY: screening,Z12.39. TECHNIQUE: Bilateral full field digital CC and MLO mammographic images were obtained with 3D tomosyn thesis and utilizing computer aided detection (CAD). COMPARISON: Prior mammograms were reviewed, the most recent being March 2021. FINDINGS: There has been no significant change in the appearance distribution the fibroglandular No new left breast findings. Centrally in the right breast there is a small microcalcification group which is unchanged from March 2021 No new spiculated masses. There is no significant architectural distortion nor skin thickening-retraction. IMPRESSION: 1. No radiographic evidence of malignancy in left breast. 2. Right breast microcalcification group which is unchanged from March 2021 and therefore most probably benign. Appropriate follow-up is to keep this patient on a yearly mammogram schedule, with earlier imaging if a self detected breast change is noted. BI-RADS Cat 2 - Benign Findings BI-RADS category: 2-benign finding Breast Density - Category B - Scattered areas of fibroglandular density Breast density Category C or D implies that the patient has dense breast tissue. Dense breast tissue can make it harder to find cancer on a mammogram. Dense breast tissue is also associated with an incr eased risk of breast cancer. This information about the result of the mammogram report was provided to the patient to raise their awareness. Use this report when you speak with the patient about their risks for breast cancer, which includes their family history. At that time, you may recommend additional screening tests (Ultrasoun d or MRI) as these tests may add significant information. A negative radiographic report should not delay biopsy if a dominant or clinically suspicious mass is present. Up to ten percent of cancers are not identified on mammography. A negative report may reinforce clinical impression. Adenosis and dense breasts may obscure an underlying neoplasm. False positive reports average 6 to 10%. Patient will receive a letter notifying them of these results.
== END ==
PROVIDERS: PCP Nurse Practitioner; Visit Provider Nurse Practitioner
DX: Z12.31 Encounter for screening mammogram for malignant neoplasm of breast (principal); R92.0 Mammographic microcalcification found on diagnostic imaging of breast; Z12.2 Encounter for screening for malignant neoplasm of respiratory organs; F17.210 Nicotine dependence, cigarettes, uncomplicated
CPT/HCPCS: 71271; 77063; 77067

== ENCOUNTER 2022-06-20 18:22 | Emergency (ER) | payer MEDICARE, BC, SELFPAY ==
--- NOTE | 2022-06-20 18:45 | DI.RAD_ITS ---
Exam(s) XR KNEE RT 3V AP,LAT,CYN EXAM: XR KNEE RT 3V AP,LAT,CYN CLINICAL HISTORY: Knee pain TECHNIQUE: COMPARISON: CR LEFT KNEE 4+ VIEWS from 01/13/2018 FINDINGS: Four views were obtained. There is mild narrowing of the cartilaginous joint spaces of the knee cons istent with degenerative change. There is no evidence of acute fracture or dislocation. IMPRESSION: RADIATION DOSE DELIVERED: Total DLP
--- NOTE | 2022-06-20 18:45 | DI.RAD_ITS ---
Exam(s) XR ANKLE LT COMPLETE EXAM: XR ANKLE LT COMPLETE CLINICAL HISTORY: Ankle pain TECHNIQUE: COMPARISON: No exams were available for comparison FINDINGS: Three views were obtained. The ankle mortise appears well maintained. There are minimal degenerativ e changes of the joints of the ankle and hindfoot. There is no evidence of acute fracture or disloca tion. IMPRESSION: RADIATION DOSE DELIVERED: Total DLP
--- NOTE | 2022-06-20 19:55 | DI.VRAD_ITS ---
PROCEDURE INFORMATION: Exam: XR Left Ankle Exam date and time: 06/20/2022 7:21 PM Age: 66 years old Clinical indication: Patient HX: Left ankle pain TECHNIQUE: Imaging protocol: Radiologic exam of the Left ankle. Views: 3 or more views. COMPARISON: CR LEFT FOOT COMPLETE 05/08/2016 8:55 PM FINDINGS: Bones/joints: There is no evidence of acute fracture.There is no evidence of malalignment or dislocation. Soft tissues: Normal. IMPRESSION: There is no evidence of acute fracture.There is no evidence of malalignment or dislocation. Dictated and Authenticated by: Kati Maloney MD. Ordering:UGO De Paz MD
--- NOTE | 2022-06-20 19:55 | DI.VRAD_ITS ---
PROCEDURE INFORMATION: Exam: XR Right Knee Exam date and time: 06/20/2022 7:30 PM Age: 66 years old Clinical indication: Right; Patient HX: Knee pain TECHNIQUE: Imaging protocol: Radiologic exam of the Right knee. Views: 3 views. COMPARISON: No relevant prior studies available. FINDINGS: Bones/joints: Tricompartmental joint space narrowing and osteophyte formation consistent with degenerative changes. There is no evidence of acute fracture.There is no evidence of malalignment or dislocation. Soft tissues: Normal. IMPRESSION: 1. Tricompartmental joint space narrowing and osteophyte formation consistent with degenerative changes. 2. There is no evidence of acute fracture.There is no evidence of malalignment or dislocation. Dictated and Authenticated by: Kati Maloney MD. Ordering:UGO De Paz MD
--- NOTE | 2022-06-20 20:02 | ED.GENADUL_ITS ---
Discharge Plan Disposition Patient Disposition: HOME Condition: Stable Discharge Details Clinical Impression: Degenerative joint disease of knee, right, Ankle pain, left Primary Care Provider: Tasneem Chaudhary ED Provider: Zandra Blair Home Meds and New Rx's Prescriptions: New tramadol 50 mg tablet 50 mg PO BID PRN (Reason: pain) Qty: 7 0RF Rx Instructions: Take with food, may cause drowsiness. No Action metformin 1,000 mg tablet 1,000 mg PO BID Qty: 180 4RF ibuprofen 600 mg tablet 600 mg PO HS PRN (Reason: pain) Qty: 30 3RF Rx Instructions: Take with food omega 8-ldx-hgl-fish oil [Fish Oil] 1,200 (144-216) mg capsule 1 cap PO DAILY Centrum Silver 0.4-300-250 mg-mcg-mcg tablet 1 tab PO DAILY fluticasone propionate [Flovent HFA] 110 mcg/actuation HFA aerosol inhaler 2 puff inhalation BID Qty: 36 4RF (DME) lancets 1 EACH misc 1 ea Miscellaneous DAILY Qty: 100 Label Comments: pt. checked blood sugar three months ago Rx Instructions: DX:250.0 ONE TOUCH DELICA (DME) OneTouch Ultra Test 1 EACH strip 1 ea Miscellaneous BID Qty: 100 Label Comments: pt. used three months ago fexofenadine [Poonam Allergy] 180 MG tablet 180 mg PO DAILY albuterol sulfate [Proventil HFA] 90 mcg/actuation HFA aerosol inhaler 2 puff IH Q4H PRN (Reason: bronchospasm) Qty: 18 4RF glipizide 5 mg tablet 5 mg PO BID Qty: 180 4RF rosuvastatin 10 mg tablet 10 mg PO DAILY Qty: 90 4RF lisinopril-hydrochlorothiazide 10-12.5 mg tablet 1 tab PO DAILY Qty: 90 3RF Glucosamine Chondroitin 550-30-1 mg Capsule 2 cap PO DAILY acetaminophen 500 mg tablet 1,000 mg PO Q8H PRN (Reason: pain) Qty: 60 2RF Discharge Instructions Instructions: Osteoarthritis (ED) Additional Instructions: Wear the knee brace as needed for comfort, rest ice compression elevation. Take the tramadol as directed with food do not operate heavy machinery or drive while taking this medication. Please follow-up with orthopedics if you do not feel better. Follow up with primary care provider in 3-5 days. Return to ED sooner if any worsening or concerns. Increase oral fluids. Please take Tylenol or Ibuprofen with food every 4-6 hours as needed for pain and swelling. Referrals: Tasneem Chaudhary NP [Primary Care Provider] - 5 days Bassam Sutton MD [ [facility] STAFF PHYSICIAN] - 2 weeks Medical Decision Making 66 year old female presents to the ER with chief complaint of right knee pain and left ankle pain which is ongoing for. Patient has been taking Tylenol ibuprofen with little relief she also reports icing. X-ray showed no evidence of acute fracture alignment or dislocation. Knee x-ray does show some tricompartmental narrowing and evidence of degenerative joint problem. Will place patient in a hinged knee brace and lace up ankle brace and discharged with tramadol and a referral for orthopedics. Imaging Data Radiologic Study: Imaging: X-Ray Radiologist's impression: TECHNIQUE: Imaging protocol: Radiologic exam of the Left ankle. Views: 3 or more views. COMPARISON: CR LEFT FOOT COMPLETE 05/08/2016 8:55 PM FINDINGS: Bones/joints: There is no evidence of acute fracture.There is no evidence of malalignment or dislocation. Soft tissues: Normal. IMPRESSION: There is no evidence of acute fracture.There is no evidence of malalignment or dislocation. Thank you for allowing us to participate in the care of your patient. Dictated and Authenticated by: Kati Maloney MD Radiologic Study #2: Imaging: X-Ray Radiologist's impression: Imaging protocol: Radiologic exam of the Right knee. Views: 3 views. COMPARISON: No relevant prior studies available. FINDINGS: Bones/joints: Tricompartmental joint space narrowing and osteophyte formation consistent with degenerative changes. There is no evidence of acute fracture.There is no evidence of tamra lignment or dislocation. Soft tissues: Normal. IMPRESSION: 1. Tricompartmental joint space narrowing and osteophyte formation consistent with degenerative changes. 2. There is no evidence of acute fracture.There is no evidence of malalignment or dislocation. Thank you for allowing us to participate in the care of your patient. Dictated and Authenticated by: Kati Maloney MD [facility] Mode of arrival: ambulatory . Date/Time Provider Initiated Documentation: 06/20/22 18:35 . Limitations to Documentation: no limitations . Information obtained by: patient . HPI Narrative: 66 year old female presents to the ER with chief complaint of right knee pain and left ankle pain which is ongoing for. Patient has been taking Tylenol ibuprofen with little relief she also reports icing. She reports that her ankle will intermittently swell with any Activity. does have a history of osteoarthritis to her left hip, obesity, hyperlipidemia and essential hypertension. She reports that she gained some weight since quitting smoking. Related Data Home Medications Medication Instructions Recorded Confirmed lancets 28 gauge #100 ea 02/26/13 05/04/22 blood sugar diagnostic (OneTouch #100 strips 01/15/17 05/04/22 Ultra Test strips) fexofenadine 180 mg tablet 180 mg PO DAILY 02/28/18 05/04/22 (Poonam Allergy) uhjthmlp-kkn-ihflo acid 0.4 1 tab PO DAILY 08/24/20 05/04/22 mg-lycopene 300 mcg-lutein 250 mcg tablet (Centrum Silver) omega 0-qnv-whs-fish oil 1,200 mg 1 cap PO DAILY 08/24/20 05/04/22 (144 mg-216 mg) capsule (Fish Oil) acetaminophen 500 mg tablet 1,000 mg PO Q8H PRN pain #60 tabs 10/12/20 05/04/22 glucosamine sulf dipot 2 cap PO DAILY 10/12/20 05/04/22 chlr,msm,chond 550 mg-C 30 mg-rylee 1 mg capsule (Glucosamine Chondroitin) albuterol sulfate 90 mcg/actuation 2 puff inhalation Q4H PRN 06/01/21 05/04/22 aerosol inhaler (Proventil HFA) bronchospasm #18 grams glipizide 5 mg tablet 5 mg PO BID #180 tab-caps 06/01/21 05/04/22 metformin 1,000 mg tablet 1,000 mg PO BID #180 tab-caps 09/08/21 05/04/22 rosuvastatin 10 mg tablet 10 mg PO DAILY #90 tabs 03/10/22 05/04/22 fluticasone propionate 110 2 puff inhalation BID #36 grams 03/30/22 05/04/22 mcg/actuation HFA aerosol inhaler (Flovent HFA) ibuprofen 600 mg tablet 600 mg PO HS PRN pain #30 tabs 04/20/22 05/04/22 lisinopril 10 1 tab PO DAILY #90 tabs 05/02/22 05/04/22 mg-hydrochlorothiazide 12.5 mg tablet tramadol 50 mg tablet 50 mg PO BID PRN pain #7 tabs 06/20/22 Previous Rx's Medication Instructions Recorded acetaminophen 500 mg tablet 1,000 mg PO Q8H PRN pain #60 tabs 10/12/20 albuterol sulfate 90 mcg/actuation 2 puff inhalation Q4H PRN 06/01/21 aerosol inhaler (Proventil HFA) bronchospasm #18 grams glipizide 5 mg tablet 5 mg PO BID #180 tab-caps 06/01/21 metformin 1,000 mg tablet 1,000 mg PO BID #180 tab-caps 09/08/21 rosuvastatin 10 mg tablet 10 mg PO DAILY #90 tabs 03/10/22 fluticasone propionate 110 2 puff inhalation BID #36 grams 03/30/22 mcg/actuation HFA aerosol inhaler (Flovent HFA) ibuprofen 600 mg tablet 600 mg PO HS PRN pain #30 tabs 04/20/22 lisinopril 10 1 tab PO DAILY #90 tabs 05/02/22 mg-hydrochlorothiazide 12.5 mg tablet tramadol 50 mg tablet 50 mg PO BID PRN pain #7 tabs 06/20/22 Allergies Allergy/AdvReac Type Severity Reaction Status Date / Time aspirin Allergy Anaphylaxsi Verified 05/04/22 07:57 s atorvastatin AdvReac Intermediate Muscle pain Verified 05/04/22 07:57 General Stated Complaint: Orthopedic RASHAD: 4 Review of Systems Musculoskeletal Musculoskeletal: Reports as per HPI, Reports arthralgias, Reports joint swelling, Reports limited range of motion, Reports numbness and Reports tingling Neurologic Neurologic: Reports numbness and Reports tingling PFSH All Active Problems (Updated 06/20/22 @ 20:19 by Zandra Blair NP) Degenerative joint disease of knee, right (Acute) Ankle pain, left (Acute) Snoring (Acute) Vocal cord polyp (Acute) Postnasal drip (Acute) History of nasal polyp (Acute) Asthma (Chronic) Allergic rhinitis (Acute) Type II diabetes mellitus (Chronic) Smoker (Chronic) quit 03/2022 Primary osteoarthritis of left hip (Chronic 10/25/16) Obesity (Chronic) Hyperlipidemia (Chronic) Essential hypertension (Chronic 04/10/17) Medical History Left cervical radiculopathy Pain clinic at [facility] 03/25- stable Lumbosacral spondylosis without myelopathy Pain clinic injections didn't work 03/25 stable Nephrocalcinosis Trigger finger, left middle finger s/p left middle finger trigger release DOS: 10/26/20 Surgical History Appendectomy (02/09/79) Biopsy of breast Cholecystectomy (02/09/79) Dilation and curettage Endometrial Ablation (02/10/08) History of appendectomy History of bilateral ligation of fallopian tubes History of umbilical hernia repair Ligation of fallopian tube Repair of umbilical hernia (02/09/79) S/P carpal tunnel release both S/P cataract surgery both S/P shoulder hemiarthroplasty Status post breast biopsy Status post cholecystectomy Status post dilation and curettage Status post endometrial ablation Status post tonsillectomy Tonsillectomy (02/09/1965) Family History Mother Diabetes Personal history of malignant neoplasm UTERINE Heart disease Father Personal history of malignant neoplasm liver Heart disease Social History Smoking/Tobacco Use Status: Former Tobacco Use Quit Date: 03/05/22 Tobacco: How many years used: 50 Quit status: has quit before Second Hand Exposure: Yes Smoking risk assessment performed?: Yes Alcohol Intake: current Alcohol Intake frequency: a few times a month Alcohol type: hard liquor Drug use: Never Substance use type: does not use Caregiver/Support person: No Household members: spouse Housing: house Number of Children: 4 number of grandchildren: 11 Communication Needs: None Do you need help understanding health information?: Rarely 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 Pets and animals: Yes Pets and animals: cat(s) Sexually active: No Do you think of yourself as: straight/heterosexual Current gender identity: female What is your relationship status?: How often do you talk on the phone with friends or family?: three or more times per week How often do you get together with friends or relatives?: three or more times per week How often do you attend jain or baptist services?: decline to answer Do you belong to any clubs or organized social groups?: decline to answer Panel score (0-1 are the most socially isolated patients): 2 What type of physical activity do you participate in: none Seatbelt use: always Helmet use: Yes Helmet use: always Drive intox or ride w/intox truck driver instructor: No Do you feel safe at home: Yes Do you feel safe in your relationship?: Yes Exam Extrem General: normal to inspection and capillary refill normal Right lower extremity: knee Details: normal to inspection, tenderness Location: of the tibial tuberosity and of the lateral joint line and knee ligament exam normal; no swelling Left lower extremity: ankle Details: normal to inspection Course Vital Signs Vital signs: Respiratory Effort Non-Labored 06/20/22 18:32 Pain Level 5 06/20/22 18:26
[2022-06-20] MEDS: traMADol 50 MG TAB PO (21:29)
== END 2022-06-20 21:09 | disposition home or self-care (01) ==
PROVIDERS: Emergency Provider Registered Nurse Emergency; PCP Nurse Practitioner
DX: M17.11 Unilateral primary osteoarthritis, right knee (principal); M19.072 Primary osteoarthritis, left ankle and foot; Z87.891 Personal history of nicotine dependence
CPT/HCPCS: 73562; 99284; 73610

== ENCOUNTER 2022-07-27 12:10 | Outpatient (CLI) | payer MEDICARE, BC, SELFPAY ==
--- NOTE | 2022-07-27 10:30 | DI.RAD_ITS ---
Exam(s) XR RIBS RT W PA LAT CHEST EXAM: XR RIBS RT W PA LAT CHEST CLINICAL HISTORY: r/o rib fx s/p [id number] CHEST PAIN TECHNIQUE: 2D digital imaging was performed. COMPARISON: CT CT CHEST LUNG CANCER SCREEN from 05/11/2022 FINDINGS: HEART: Normal size. Aorta: PULMONARY VASCULATURE: Normal. LUNGS: Clear. PLEURAL SPACE: No pleural effusion or pneumothorax. BONE:No rib fractures are identified. The lower ribs are suboptimally penetrated due to patient body habitus. No thoracic compression fractures are seen. IMPRESSION: No acute abnormality. DATA REPOSITORY: RADIATION DOSE DELIVERED:
--- NOTE | 2022-07-27 10:30 | DI.RAD_ITS ---
Exam(s) XR HAND LT COMPLETE EXAM: XR HAND LT COMPLETE CLINICAL HISTORY: Rule out thumb fracture status post fall M79.645 PAIN IN LT FINGER. TECHNIQUE: 2D digital imaging was performed. Three views. COMPARISON: CR XR HAND RT LIMITED from 09/16/2020 CR XR FINGER LT MIDDLE from 12/27/2020 FINDINGS: BONES: No definite acute fracture is present. No bony destructive lesion is seen. There is some def ormity at the distal aspect of the proximal phalanx of the thumb where there is an osteophyte. The t humb is not optimally profiled in there is bony overlap at this joint. JOINTS: No dislocation present. Mild degenerative changes of the interphalangeal joints. Mild degen erative changes are seen at the 1st carpal metacarpal joint. There is a cyst in the lunate. SOFT TISSUE: Normal. IMPRESSION: Degenerative changes at the inter phalangeal joint of the thumb. There is periarticular spurring and slight deformity but no definite fracture. There is further clinical concern, a dedicated thumb shannen dy could be performed. DATA REPOSITORY: RADIATION DOSE DELIVERED:
== END 2022-07-27 12:30 ==
PROVIDERS: PCP Nurse Practitioner; Visit Provider Nurse Practitioner Family
DX: M19.042 Primary osteoarthritis, left hand (principal); R07.89 Other chest pain
CPT/HCPCS: 71046; 71100; 73130

== ENCOUNTER 2022-10-02 21:14 | Emergency (ER) | payer MEDICARE, BC, SELFPAY ==
[2022-10-02 21:26] VITALS: BP 145/87; PULSE 83; RESP 17; TEMP 36.6; O2SAT 96
--- NOTE | 2022-10-02 21:30 | DI.RAD_ITS ---
Exam(s) XR CHEST 2V PA LATERAL EXAM: XR CHEST 2V PA LATERAL CLINICAL HISTORY: cough, r/o acute disease TECHNIQUE: 2D digital imaging was performed of the chest. Two images were obtained. AP and lateral . Views were obtained. COMPARISON: CR XR RIBS RT W PA LAT CHEST from 07/27/2022 FINDINGS: MEDIASTINUM: Normal. HEART: Normal. PULMONARY VASCULATURE: Normal. LUNGS: Clear. PLEURAL SPACE: No pleural effusion or pneumothorax. BONE:Within normal limits for the patient's age. OTHER FINDINGS:Normal. IMPRESSION: No acute pulmonary findings. DATA REPOSITORY: RADIATION DOSE DELIVERED:
--- NOTE | 2022-10-02 21:34 | ED.GENADUL_ITS ---
Discharge Plan Disposition Patient Disposition: Home Condition: Improving Discharge Details Clinical Impression: Viral URI with cough, Acute bronchitis Primary Care Provider: Alysha Borges ED Provider: Ramirez Baird Home Meds and New Rx's Prescriptions: New prednisone 20 mg tablet See Rx Instructions .ROUTE .COMPLEX Qty: 12 0RF Rx Instructions: Take 3 tabs daily for 2 days, then 2 tabs daily for 2 days, then 1 tab daily for 2 days benzonatate 100 mg capsule 100 mg PO TID PRN (Reason: cough) Qty: 10 0RF Continued metformin 1,000 mg tablet 1,000 mg PO BID Qty: 180 4RF ibuprofen 600 mg tablet 600 mg PO HS PRN (Reason: pain) Qty: 30 3RF Rx Instructions: Take with food rosuvastatin 10 mg tablet 10 mg PO .2xw Qty: 20 4RF omega 0-etj-lbp-fish oil [Fish Oil] 1,200 (144-216) mg capsule 1 cap PO DAILY Centrum Silver 0.4-300-250 mg-mcg-mcg tablet 1 tab PO DAILY fluticasone propionate [Flovent HFA] 110 mcg/actuation HFA aerosol inhaler 2 puff inhalation BID Qty: 36 4RF (DME) lancets 1 EACH misc 1 ea Miscellaneous DAILY Qty: 100 Label Comments: pt. checked blood sugar three months ago Rx Instructions: DX:250.0 ONE TOUCH DELICA (DME) OneTouch Ultra Test 1 EACH strip 1 ea Miscellaneous BID Qty: 100 Label Comments: pt. used three months ago fexofenadine [Poonam Allergy] 180 MG tablet 180 mg PO DAILY lisinopril-hydrochlorothiazide 10-12.5 mg tablet 1 tab PO DAILY Qty: 90 3RF glipizide 5 mg tablet 5 mg PO BID Qty: 180 3RF albuterol sulfate [Proventil HFA] 90 mcg/actuation HFA aerosol inhaler 2 puff IH Q4H PRN (Reason: bronchospasm) Qty: 18 4RF Glucosamine Chondroitin 550-30-1 mg Capsule 2 cap PO DAILY acetaminophen 500 mg tablet 1,000 mg PO Q8H PRN (Reason: pain) Qty: 60 2RF Discharge Instructions Instructions: Upper Respiratory Infection (ED), Acute Bronchitis (ED), Acute Cough (ED) Additional Instructions: Your COVID and influenza test today were negative. Your chest x-ray showed no evidence of acute disease. Your symptoms could be due to a viral respiratory illness. Use the albuterol inhaler as needed and directed for shortness of breath, cough or wheezing. Prescriptions for cough medication and steroids were sent electronically to your pharmacy to take as directed. Follow-up with your primary care doctor in 1 week. Return to the emergency department with any worsening or new concerning symptoms. Discharge Data Discharge Date/Time-TO BE ENTERED AT DEPARTURE: 10/03/22 00:21 Discharge Physician: Nafisa Hill Medical Decision Making <Nafisa Hill DO - Last Filed: 10/05/22 02:01> Dr. Hill 3114 -- 67-year-old female with a history of obesity, hypertension, hyperlipidemia, diabetes and asthma presents with nasal congestion, productive cough, chest congestion and shortness of breath since yesterday. States the nasal congestion is the symptom bothering her the most at this time and states I cannot breathe through my nose . Her vitals are within normal limits. I obtained an oral temp which was 100.8. She has slightly diminished breath sounds were noted but no obvious wheezing or rhonchi. Normal oropharynx. Her voice is hoarse. Diagnosis includes COVID, influenza, pneumonia, bronchitis. History of presentation does not appear consistent with ACS, PE or dissection. Considering her age and history, will obtain EKG in addition to Fluvid and CXR and give duoneb and PO tylenol and motrin. 2310 -- Fluvid negative. CXR negative. Patient reassessed and she feels better after DuoNeb. Oxygen saturation 93 to 94%. She is still complaining of some shortness of breath. She still has slightly diminished breath sounds throughout but no obvious wheezing. We will give another albuterol neb and a dose of oral prednisone. Case endorsed to Dr. Baird to reassess after neb and steroids. If patient feels better, will plan for discharged home with albuterol inhaler, oral steroids and cough medication. Dr. Baird pt feels much better requesting d/c, has normal lung sounds one exam now and speaking in full sentences, she is stable for d/c, return precautions given. Medical Records Medical records reviewed: Yes I reviewed the patient's medical records. Imaging Data Radiologic Study: Radiologist's impression: XR Chest Exam date and time: 10/02/2022 10:19 PM Age: 67 years old Clinical indication: Patient HX: Cough, R/O acute disease TECHNIQUE: Imaging protocol: Radiologic exam of the chest. Views: 2 views. COMPARISON: CR XR RIBS RT W PA LAT CHEST 07/27/2022 11:10 AM FINDINGS: Limited due to overlying soft tissues in the midline Lungs: Unremarkable. No consolidation. Pleural spaces: Unremarkable. No pleural effusion. No pneumothorax. Heart/Mediastinum: Unremarkable. No cardiomegaly. Bones/joints: Unremarkable. Surgical clips right upper quadrant IMPRESSION: No acute findings.? No radiographic evidence for pneumonia Lab Data Lab results reviewed: Yes I reviewed the patient's lab results. Labs: Laboratory Tests Range/Units 10/02/22 21:40 COVID-19 Source Nasopharynx SARS-CoV-2 (PCR) (Negative) Negative Influenza Type A (PCR) (Negative) Negative Influenza Type B (PCR) (Negative) Negative RSV (PCR) (Negative) Negative ECG Data Attestation: I personally reviewed and interpreted this ECG (s) as follows: Interpretation: rate of 75, sinus, no stemi. <Ramirez Baird MD - Last Filed: 10/03/22 00:17> 2145 -- 67-year-old female with a history of obesity, hypertension, hyperlipidemia, diabetes and asthma presents with nasal congestion, productive cough, chest congestion and shortness of breath since yesterday. States the nasal congestion is the symptom bothering her the most at this time and states I cannot breathe through my nose . Her vitals are within normal limits. I obtained an oral temp which was 100.8. She has slightly diminished breath sounds were noted but no obvious wheezing or rhonchi. Normal oropharynx. Her voice is hoarse. Diagnosis includes COVID, influenza, pneumonia, bronchitis. History of presentation does not appear consistent with ACS, PE or dissection. Considering her age and history, will obtain EKG in addition to Fluvid and CXR and give duoneb and PO tylenol and motrin. 2310 -- Fluvid negative. CXR negative. Patient reassessed and she feels better after DuoNeb. Oxygen saturation 93 to 94%. She is still complaining of some shortness of breath. She still has slightly diminished breath sounds throughout but no obvious wheezing. We will give another albuterol neb and a dose of oral prednisone. Case endorsed to Dr. Baird to reassess after neb and steroids. If patient feels better, will plan for discharged home with albuterol inhaler, oral steroids and cough medication. pt feels much better requesting d/c, has normal lung sounds one exam now and speaking in full sentences, she is stable for d/c, return precautions given Sign Out Yes HPI <Nafisa Hill DO - Last Filed: 10/05/22 02:01> General Mode of arrival: ambulatory . Date/Time Provider Initiated Documentation: 10/02/22 21:21 . Limitations to Documentation: no limitations . Information obtained by: patient . HPI Narrative: Patient is a 67-year-old female with history of obesity, hypertension, hyperlipidemia, diabetes who presents with productive cough, chest congestion and shortness of breath since yesterday. She states her main complaint at this time is nasal congestion and feeling like she cannot breathe through her nose. She states she has not taken any medication for symptoms. She states she is vaccinated for COVID and denies any known exposure to coronavirus. She denies any vomiting or diarrhea. Related Data Home Medications Medication Instructions Recorded Confirmed lancets 28 gauge #100 ea 02/26/13 08/01/22 blood sugar diagnostic (OneTouch #100 strips 01/15/17 08/01/22 Ultra Test strips) fexofenadine 180 mg tablet 180 mg PO DAILY 02/28/18 08/01/22 (Poonam Allergy) khvntdmd-uhr-pxeoj acid 0.4 1 tab PO DAILY 08/24/20 08/01/22 mg-lycopene 300 mcg-lutein 250 mcg tablet (Centrum Silver) omega 0-ufw-ike-fish oil 1,200 mg 1 cap PO DAILY 08/24/20 08/01/22 (144 mg-216 mg) capsule (Fish Oil) acetaminophen 500 mg tablet 1,000 mg PO Q8H PRN pain #60 tabs 10/12/20 08/01/22 glucosamine sulf dipot 2 cap PO DAILY 10/12/20 08/01/22 chlr,msm,chond 550 mg-C 30 mg-rylee 1 mg capsule (Glucosamine Chondroitin) metformin 1,000 mg tablet 1,000 mg PO BID #180 tab-caps 09/08/21 08/01/22 fluticasone propionate 110 2 puff inhalation BID #36 grams 03/30/22 08/01/22 mcg/actuation HFA aerosol inhaler (Flovent HFA) ibuprofen 600 mg tablet 600 mg PO HS PRN pain #30 tabs 04/20/22 08/01/22 lisinopril 10 1 tab PO DAILY #90 tabs 05/02/22 08/01/22 mg-hydrochlorothiazide 12.5 mg tablet glipizide 5 mg tablet 5 mg PO BID #180 tab-caps 06/22/22 08/01/22 rosuvastatin 10 mg tablet 10 mg PO .2xw #20 tabs 06/28/22 08/01/22 albuterol sulfate 90 mcg/actuation 2 puff inhalation Q4H PRN 07/03/22 08/01/22 aerosol inhaler (Proventil HFA) bronchospasm #18 grams benzonatate 100 mg capsule 100 mg PO TID PRN cough #10 caps 10/02/22 prednisone 20 mg tablet See Rx Instructions .Route 10/02/22 .COMPLEX #12 tabs Previous Rx's Medication Instructions Recorded acetaminophen 500 mg tablet 1,000 mg PO Q8H PRN pain #60 tabs 10/12/20 metformin 1,000 mg tablet 1,000 mg PO BID #180 tab-caps 09/08/21 fluticasone propionate 110 2 puff inhalation BID #36 grams 03/30/22 mcg/actuation HFA aerosol inhaler (Flovent HFA) ibuprofen 600 mg tablet 600 mg PO HS PRN pain #30 tabs 04/20/22 lisinopril 10 1 tab PO DAILY #90 tabs 05/02/22 mg-hydrochlorothiazide 12.5 mg tablet glipizide 5 mg tablet 5 mg PO BID #180 tab-caps 06/22/22 rosuvastatin 10 mg tablet 10 mg PO .2xw #20 tabs 06/28/22 albuterol sulfate 90 mcg/actuation 2 puff inhalation Q4H PRN 07/03/22 aerosol inhaler (Proventil HFA) bronchospasm #18 grams benzonatate 100 mg capsule 100 mg PO TID PRN cough #10 caps 10/02/22 prednisone 20 mg tablet See Rx Instructions .Route 10/02/22 .COMPLEX #12 tabs Allergies Allergy/AdvReac Type Severity Reaction Status Date / Time aspirin Allergy Anaphylaxsi Verified 08/01/22 08:03 s atorvastatin AdvReac Intermediate Muscle pain Verified 08/01/22 08:03 General Stated Complaint: SOB RASHAD: 3 Review of Systems <Nafisa Hill DO - Last Filed: 10/05/22 02:01> All systems reviewed & are unremarkable except as noted in HPI and below Constitutional Constitutional: Reports as per HPI, Denies chills and Denies fever(s) Eyes Eyes: Denies blurry vision ENT Ears, Nose, Mouth, and Throat: Denies dizziness, Reports nasal congestion, Reports nasal discharge, Reports sore throat and Denies throat swelling Cardiovascular Cardiovascular: Denies chest pain and Reports dyspnea Respiratory Respiratory: Reports cough and Reports dyspnea Gastrointestinal Gastrointestinal: Denies abdominal pain, Denies diarrhea and Denies vomiting Genitourinary Genitourinary: Denies hematuria and Denies dysuria Musculoskeletal Musculoskeletal: Denies back pain and Denies numbness Integumentary/Breasts Skin/Breast: Denies lesions and Denies rash Neurologic Neurologic: Denies dizziness, Denies localized weakness and Denies numbness Allergic/Immunologic Allergic/Immunologic: Denies throat swelling PFSH <aNfisa Hill DO - Last Filed: 10/05/22 02:01> All Active Problems (Updated 10/02/22 @ 23:17 by Nafisa Hill DO) Viral URI with cough (Acute) Acute bronchitis (Acute) Michael's edema of vocal folds (Acute) Essential hypertension (Chronic 04/10/17) Hyperlipidemia (Chronic) Obesity (Chronic) Primary osteoarthritis of left hip (Chronic 10/25/16) Smoker (Chronic) quit 03/2022 Type II diabetes mellitus (Chronic) Allergic rhinitis (Acute) Asthma (Chronic) History of nasal polyp (Acute) Postnasal drip (Acute) Vocal cord polyp (Acute) Snoring (Acute) Medical History Left cervical radiculopathy Pain clinic at the [facility] 03/25- stable Lumbosacral spondylosis without myelopathy Pain clinic injections didn't work 03/25 stable Nephrocalcinosis Trigger finger, left middle finger s/p left middle finger trigger release DOS: 10/26/20 Surgical History Appendectomy (02/09/79) Biopsy of breast Cholecystectomy (02/09/79) Dilation and curettage Endometrial Ablation (02/10/08) History of appendectomy History of bilateral ligation of fallopian tubes History of umbilical hernia repair Ligation of fallopian tube Repair of umbilical hernia (02/09/79) S/P carpal tunnel release both S/P cataract surgery both S/P shoulder hemiarthroplasty Status post breast biopsy Status post cholecystectomy Status post dilation and curettage Status post endometrial ablation Status post tonsillectomy Tonsillectomy (02/09/1965) Family History Mother Diabetes Personal history of malignant neoplasm UTERINE Heart disease Father Personal history of malignant neoplasm liver Heart disease Social History Smoking/Tobacco Use Status: Former Tobacco Use Quit Date: 03/05/22 Tobacco: How many years used: 50 Quit status: has quit before Second Hand Exposure: Yes Smoking risk assessment performed?: Yes Alcohol Intake: current Alcohol Intake frequency: a few times a month Alcohol type: hard liquor Drug use: Never Substance use type: does not use Caregiver/Support person: No Household members: spouse Housing: house Number of Children: 4 number of grandchildren: 11 Communication Needs: None Do you need help understanding health information?: Rarely 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 Pets and animals: Yes Pets and animals: cat(s) Sexually active: No Do you think of yourself as: straight/heterosexual Current gender identity: female What is your relationship status?: How often do you talk on the phone with friends or family?: three or more times per week How often do you get together with friends or relatives?: three or more times per week How often do you attend jainism or congregational services?: decline to answer Do you belong to any clubs or organized social groups?: decline to answer Panel score (0-1 are the most socially isolated patients): 2 What type of physical activity do you participate in: none Seatbelt use: always Helmet use: Yes Helmet use: always Drive intox or ride w/intox otr flatbed driver: No Do you feel safe at home: Yes Do you feel safe in your relationship?: Yes Exam <Nafisa J Bugbee, DO - Last Filed: 10/05/22 02:01> Const General: cooperative and no acute distress Orientation: alert, awake and oriented x3 HENMT Head: normal to inspection Face and sinus: normal facial exam Eyes General: appearance normal, both eyes and all related structures Pupils: PERRL EOM: EOM intact bilaterally Neck Neck: normal visual inspection and No submandibular swelling Lymphatic: no lymphadenopathy noted Chest Chest: normal inspection of the chest and no tenderness Resp Effort & Inspection: normal respiratory effort, able to speak in complete sentences and other (Voice is hoarse) Auscultation: diminished lung sounds bilaterally throughout Cardio Rate: regular rate Rhythm: regular rhythm GI Inspection: normal to inspection Palpation: soft, not firm, not rigid and nontender Auscultation: hypoactive bowel sounds Back/Spine/Pelvis Thoracic/Lumbar Spine: thoracic and lumbar spine normal to inspection Pelvis: no pain with anterior-posterior compression Skin General skin exam: no rashes or lesions noted Neuro General: patient alert, patient awake and patient oriented x3 Cognition: normal cognition Speech: speech normal Motor: muscle tone normal throughout Sensory Exam: no sensory deficits noted Extrem General: normal to inspection, full ROM, capillary refill normal, no calf tenderness bilaterally and no edema Psych Appearance: grossly normal Mental Status: mental status grossly normal Speech and Movement: speech and movement normal Affect: normal affect Course <Nafisa Hill DO - Last Filed: 10/05/22 02:01> Vital Signs Vital signs: Vital Signs Temperature 97.9 F 10/02/22 21:26 Pulse 83 10/02/22 21:26 Respiratory Rate 17 10/02/22 21:26 Blood Pressure 145/87 H 10/02/22 21:26 Pulse Oximetry 96 10/02/22 21:26 Temperature 97.9 F 10/02/22 21:26 Temperature Source Temporal Artery Scan 10/02/22 21:26 Pulse 83 10/02/22 21:26 Respiratory Rate 17 10/02/22 21:26 Respiratory Effort 10/02/22 21:32 Respiratory Depth Deep 10/02/22 21:32 Respiratory Pattern Normal 10/02/22 21:32 Blood Pressure 145/87 H 10/02/22 21:26 Pulse Oximetry 96 10/02/22 21:26 Oxygen Delivery Method Room Air 10/02/22 21:26 Oxygen Flow Rate 0 10/02/22 21:26 Pain Level 3 10/02/22 21:32 Sign Out <Nafisa Hill DO - Last Filed: 10/05/22 02:01> Sign Out Data: Sign Out Comment: Nasal congestion, sore throat, cough and shortness of breath since yesterday. Low-grade fever of 100.8 in the ED. Fluvid negative. CXR negative. Reassess after neb treatment and oral steroids. If patient improves, plan for discharge to home with albuterol, steroids and cough medication. Last updated by Nafisa Hill DO at 10/02/22 23:41
--- NOTE | 2022-10-02 22:15 | RT.EKG_ITS ---
APPROVED REPORT Exam: Resting ECG Reason for Exam: chest pain Patient Location: E HR:75 bpm ECG Measurements Heart Rate 75 AXIS OR 191 P 41 QRSd 95 QRS -10 QT 355 T 50 QTc 397 Conclusion Sinus rhythm...normal P axis, V-rate 60- 99. Sinus. No STEMI. I have reviewed and interpreted ECG and agree with software generated interpretation.
[2022-10-02 22:21] LABS: COVID-19 PCR Negative (Negative); Influenza A PCR Negative (Negative); Influenza B PCR Negative (Negative); RSV PCR Negative (Negative)
[2022-10-02 22:23] LABS: Source Nasopharynx
--- NOTE | 2022-10-02 22:27 | DI.VRAD_ITS ---
PROCEDURE INFORMATION: Exam: XR Chest Exam date and time: 10/02/2022 10:19 PM Age: 67 years old Clinical indication: Patient HX: Cough, R/O acute disease TECHNIQUE: Imaging protocol: Radiologic exam of the chest. Views: 2 views. COMPARISON: CR XR RIBS RT W PA LAT CHEST 07/27/2022 11:10 AM FINDINGS: Limited due to overlying soft tissues in the midline Lungs: Unremarkable. No consolidation. Pleural spaces: Unremarkable. No pleural effusion. No pneumothorax. Heart/Mediastinum: Unremarkable. No cardiomegaly. Bones/joints: Unremarkable. Surgical clips right upper quadrant IMPRESSION: No acute findings. No radiographic evidence for pneumonia Dictated and Authenticated by: Gerardo Card MD. Ordering:SHANELLE Skelton MD
[2022-10-02] MEDS: Ibuprofen 600 MG TAB PO (22:28)
[2022-10-02] MEDS: Albuterol/Ipratropium 3 ML UPD VIAL UPD (22:28)
[2022-10-02] MEDS: Acetaminophen 500 MG TAB 1000 MG PO (22:28)
[2022-10-02] MEDS: Albuterol 2.5 MG/3 ML INH SOLN VIAL 5 MG UPD (23:26)
[2022-10-02] MEDS: predniSONE 20 MG TAB 60 MG PO (23:26)
[2022-10-03 00:11] VITALS: BP 120/43; PULSE 78; RESP 20; O2SAT 94
[2022-10-03 00:21] VITALS: BP 141/86; PULSE 85; RESP 17; O2SAT 97
== END 2022-10-03 00:21 | disposition home or self-care (01) ==
PROVIDERS: Physician Assistant; Emergency Provider Emergency Medicine; PCP Nurse Practitioner Family
DX: J06.9 Acute upper respiratory infection, unspecified (principal); J20.9 Acute bronchitis, unspecified; I10 Essential (primary) hypertension; E11.9 Type 2 diabetes mellitus without complications; J45.909 Unspecified asthma, uncomplicated; E78.5 Hyperlipidemia, unspecified; Z79.84 Long term (current) use of oral hypoglycemic drugs; Z20.822 Contact with and (suspected) exposure to COVID-19; Z79.51 Long term (current) use of inhaled steroids; Z90.49 Acquired absence of other specified parts of digestive tract; Z87.891 Personal history of nicotine dependence
CPT/HCPCS: 87637; 93005; 94640; 99284; 71046; 93010; 99285; J7512; J7613; J7620

== ENCOUNTER 2022-11-23 11:40 | Outpatient (CLI) | payer MEDICARE, SELFPAY ==
--- NOTE | 2022-11-23 11:45 | RT.EKG_ITS ---
APPROVED REPORT Exam: Resting ECG Reason for Exam: pre-op Patient Location: O HR:64 bpm ECG Measurements Heart Rate 64 AXIS CO 210 P 62 QRSd 100 QRS 4 QT 389 T 57 QTc 402 Conclusion Sinus rhythm...normal P axis, V-rate 50- 99 Poor R wave progression
== END 2022-11-23 11:41 | disposition home or self-care (01) ==
PROVIDERS: PCP Nurse Practitioner Family; Visit Provider Nurse Practitioner Family
DX: Z01.818 Encounter for other preprocedural examination (principal); E11.9 Type 2 diabetes mellitus without complications; E78.5 Hyperlipidemia, unspecified; I10 Essential (primary) hypertension; J45.909 Unspecified asthma, uncomplicated
CPT/HCPCS: 93010

== ENCOUNTER 2022-11-28 03:16 | Outpatient (CLI) | payer MEDICARE, SELFPAY ==
[2022-11-28 12:32] LABS: Abs Immature Grans 0.07 10^3/uL (0.0-0.06); Absolute Basophil Count 0.03 10^3/uL (0.0-0.2); Absolute Eosinophil Count 0.14 10^3/uL (0.0-0.7); Absolute Lymphocyte Count 1.41 10^3/uL (1.2-3.4); Absolute Monocyte Count 0.56 10^3/uL (0.1-0.8); Absolute Neutrophil Count 3.79 10^3/uL (1.2-6.7); Basophils % 0.5; Eosinophils % 2.3; HCT 35.1 % (36.0-46.0); HGB 11.3 g/dL (11.2-15.7); Immature Grans % 1.2; Lymphocytes % 23.5; MCH 31.1 pg (27.0-33.0); MCHC 32.2 % (32.0-36.0); MCV 97 fL (80-95); MPV 10.4 fL (8.0-11.0); Monocytes % 9.3; Neutrophils % 63.2; Platelet Count 207 10^3/uL (130-400); RBC 3.63 10^6/uL (3.93-5.22); RDW 12.9 % (11.7-14.6); RDW-SD 45.8 fL
[2022-11-28 12:47] LABS: ALT 33 U/L (14-59); AST 22 U/L (15-37); Albumin 4.2 g/dL (3.4-5.0); Alkaline Phosphatase 91 U/L (46-116); Anion Gap 7.3 mmol/L (3-11); BUN 11 mg/dL (7-18); Bilirubin, Total 0.3 mg/dL (0.2-1.0); CO2 28.7 mmol/L (21.0-32.0); CREATININE 0.8 mg/dL (0.55-1.02); Calcium 9.7 mg/dL (8.5-10.1); Chloride 101 mmol/L (98-107); Estimated GFR 81.72 (mL/min/1.73m2); Glucose 165 mg/dL (74-106); Potassium 4.1 mmol/L (3.5-5.1); Sodium 137 mmol/L (136-145); Total Protein 7.7 g/dL (6.4-8.2)
[2022-11-28 12:56] LABS: Hemoglobin A1C 8.2 % (<5.7)
== END 2022-11-28 03:17 | disposition home or self-care (01) ==
LOC: LOS 03:16
PROVIDERS: PCP Nurse Practitioner Family; Visit Provider Nurse Practitioner Family
DX: E11.9 Type 2 diabetes mellitus without complications (principal); E78.5 Hyperlipidemia, unspecified; I10 Essential (primary) hypertension
CPT/HCPCS: 36415; 80053; 83036; 85025

== ENCOUNTER 2022-12-04 04:54 | Inpatient (IN) | payer MEDICARE, SELFPAY ==
[2022-12-04] VITALS (42 sets, daily range): BP systolic 100–171; BP diastolic 37–87; PULSE 77–135; RESP 16–22; TEMP 36.6–40.9; O2SAT 88–98; BMI 42.0
--- NOTE | 2022-12-04 04:45 | RT.EKG_ITS ---
APPROVED REPORT Exam: Resting ECG Reason for Exam: dizziness Patient Location: E HR:86 bpm ECG Measurements Heart Rate 86 AXIS AK 187 P 53 QRSd 95 QRS -6 QT 352 T 35 QTc 421 Conclusion Sinus rhythm...normal P axis, V-rate 60- 99 Physician: no stemi
--- NOTE | 2022-12-04 05:00 | DI.CT_ITS ---
Exam(s) CT CHEST/ABD/PEL WO EXAM: CT CHEST/ABD/PEL WO CLINICAL HISTORY: cough, hypoxic, vomiting, diarrhea TECHNIQUE: Imaging Protocol: Axial computed tomography images with coronal and sagittal reformatted images were created and reviewed COMPARISON: CT CT CHEST LUNG CANCER SCREEN from 05/11/2022 FINDINGS: CHEST: Tracheobronchial tree: Patent where visualized. Pulmonary parenchyma: No consolidation or dominant measurable mass. No architectural distortion. Ther e is mild atelectasis or scarring in the anterior aspect of the right middle and left lingular lobes. Mediastinum and Gilma: No dominant adenopathy or fluid collection. The esophagus is unremarkable. Thyroid gland: Unremarkable. Pleura: No effusion or pneumothorax. Heart: The heart is not dilated. Mild coronary artery calcification is present. No pericardial effus ion. Aorta: Thoracic aorta non-dilated. Atherosclerosis is present. Lymph nodes: Within normal limits. Bones:Within normal limits for the patient's age. There are old healed rib fractures. Soft tissues: Unremarkable. ABDOMEN: Liver: Normal density. No measurable mass. Gallbladder and Biliary Tract: Status post cholecystectomy no significant biliary ductal dilatation. Pancreas: There is fatty atrophy of the pancreas. No pancreatic mass or peripancreatic fluid collect ions are seen. Spleen: Normal. Adrenals: No masses seen. Kidneys: Normal size, contour and axis. There is a 1.1 cm stone in the left renal pelvis causing mode rate hydronephrosis. No masses seen. Abdominal Aorta: Abdominal portion non-dilated. Atherosclerosis is present. Bowel: There is diverticulosis of the colon but no evidence of acute diverticulitis. There is no klaus dence of bowel obstruction or appendicitis. There does appear to be a small hiatal hernia. Peritoneal Cavity: No ascites, collection or mesenteric inflammatory response. No free air. Lymph Nodes: Within normal limits. Bones: Within normal limits for the patient's age. Soft Tissues: Unremarkable. PELVIS: Bladder: Symmetric distention, no gross wall thickening. Reproductive Organs: Unremarkable as visualized. Lymph Nodes: Within normal limits. Bones: Within normal limits for the patient's age. IMPRESSION: 1. No acute pulmonary process. 2. 1.1 cm obstructing stone in the left ureteropelvic junction causing moderate hydronephrosis. RADIATION DOSE DELIVERED: 1,726.7mGy.cm Total DLP 1,726.7mGy.cm Total DLP DATA REPOSITORY: All CT scans at this facility are submitted to the National Radiology Data Registry (NRDR) Dose Index Registry (DIR) with the [employer] ([employer]). RADIATION OPTIMIZATION: All CT scans at this facility use at least one of these dose optimization te chniques: automated exposure control; mA and/or kV adjustment per patient size (includes targeted exa ms where dose is matched to clinical indication); or iterative reconstruction.
--- NOTE | 2022-12-04 05:00 | DI.CT_ITS ---
Exam(s) CT HEAD WO EXAM: CT HEAD WO CLINICAL HISTORY: fall, confused. TECHNIQUE: Imaging Protocol: Axial computed tomography images with coronal and sagittal reformatted images were created and reviewed COMPARISON: No exams were available for comparison FINDINGS: Ventricles and Extra axial spaces: Normal in size and morphology for the patient's age. There is a sm all 4 mm hyperdense extra-axial lesion along the left parietal bone. This may represent a small meni ngioma. Hemorrhage: None. Cerebral parenchyma: Normal. Midline shift: None. Brainstem/Cerebellum: Normal. Calvarium: Normal. Visualized Paranasal sinuses/Mastoids: Clear. Soft Tissues: Unremarkable. IMPRESSION: No acute intracranial process. RADIATION DOSE DELIVERED: 861.87mGy.cm Total DLP DATA REPOSITORY: All CT scans at this facility are submitted to the National Radiology Data Registry (NRDR) Dose Index Registry (DIR) with the [employer] ([employer]). RADIATION OPTIMIZATION: All CT scans at this facility use at least one of these dose optimization te chniques: automated exposure control; mA and/or kV adjustment per patient size (includes targeted exa ms where dose is matched to clinical indication); or iterative reconstruction.
[2022-12-04] MEDS: Normal Saline 1,000 ML 1000 ML IV (05:14)
[2022-12-04 05:20] LABS: Abs Immature Grans 0.09 10^3/uL (0.0-0.06); Absolute Basophil Count 0.04 10^3/uL (0.0-0.2); Absolute Lymphocyte Count 0.72 10^3/uL (1.2-3.4); Absolute Neutrophil Count 11.08 10^3/uL (1.2-6.7); Basophils % 0.3; HCT 31.4 % (36.0-46.0); HGB 10.1 g/dL (11.2-15.7); Immature Grans % 0.7; Lymphocytes % 5.6; MCH 30.8 pg (27.0-33.0); MCHC 32.2 % (32.0-36.0); MCV 96 fL (80-95); MPV 9.8 fL (8.0-11.0); Monocytes % 7.2; Neutrophils % 86.2; Platelet Count 162 10^3/uL (130-400); RBC 3.28 10^6/uL (3.93-5.22); RDW 12.9 % (11.7-14.6); RDW-SD 45.4 fL; WBC 12.85 10^3/uL (4.4-10.8)
[2022-12-04 05:22] LABS: Absolute Monocyte Count 0.93 10^3/uL (0.1-0.8)
--- NOTE | 2022-12-04 05:29 | ED.GENADUL_ITS ---
Discharge Plan Disposition Patient Disposition: Admit to [facility] Condition: Stable Discharge Details Chief Complaint: Dizzy/Sync Clinical Impression: Kidney stone, Acute UTI, Hypothyroidism Primary Care Provider: Alysha Borges ED Provider: Brennon García Home Meds and New Rx's Prescriptions: No Action ibuprofen 600 mg tablet 600 mg PO HS PRN (Reason: pain) Qty: 30 3RF Rx Instructions: Take with food omega 4-pxm-crc-fish oil [Fish Oil] 1,200 (144-216) mg capsule 1 cap PO DAILY Centrum Silver 0.4-300-250 mg-mcg-mcg tablet 1 tab PO DAILY fluticasone propionate [Flovent HFA] 110 mcg/actuation HFA aerosol inhaler 2 puff inhalation BID Qty: 36 4RF fluticasone propionate [Flonase Allergy Relief] 50 mcg/actuation spray,suspension 2 spray intranasal DAILY 30 Days Qty: 16 12RF Rx Instructions: administer into each nostril (DME) lancets 1 EACH misc 1 ea Miscellaneous DAILY Qty: 100 Label Comments: pt. checked blood sugar three months ago Rx Instructions: DX:250.0 ONE TOUCH DELICA (DME) OneTouch Ultra Test 1 EACH strip 1 ea Miscellaneous BID Qty: 100 Label Comments: pt. used three months ago glipizide 5 mg tablet 5 mg PO BID Qty: 180 3RF albuterol sulfate [Proventil HFA] 90 mcg/actuation HFA aerosol inhaler 2 puff IH Q4H PRN (Reason: bronchospasm) Qty: 18 4RF metformin 1,000 mg tablet 1,000 mg PO BID Qty: 180 4RF Glucosamine Chondroitin 550-30-1 mg Capsule 2 cap PO DAILY acetaminophen 500 mg tablet 1,000 mg PO Q8H PRN (Reason: pain) Qty: 60 2RF Medical Decision Making This is a 67-year-old female with a past medical history of high cholesterol, type 2 diabetes, asthma, vocal cord polyp, who presents today for dizziness, weakness, confusion, diarrhea, nausea, fever, and shortness of breath. She comes via EMS. EMS reports that over the last day or so the patient has had increased weakness and confusion with associated diarrhea and nausea but no vomiting. EMS noted a fever of 101 at home on their arrival. This evening the patient did fall and collapse trying to get out of bed, but did not hit her head, or have any loss of consciousness. Patient denies any chest pain or blood in her stool. No significant abdominal pain. No other complaints at this time. No history of smoking/tobacco abuse. Normally she does not use any oxygen. Oxygenation was 92% on room air when EMS arrived, and she was started on 2 L via nasal cannula. M demonstrates a well-appearing female, lungs are clear, no abdominal tenderness, mucous membranes are dry. No meningeal signs. No focal neurologic deficits. Differential includes viral etiology, pneumonia, UTI or infectious diarrhea. While patient and EMS initially stated that she has been having diarrhea over the last few days, patient is now also stating that she has not had a bowel movement in 3 days. It is difficult to know if this is secondary to confusion or which component is real. We will get a CT scan of her head to rule out acute process, image her chest and abdomen for signs of infection, monitor closely and reassess. 7:20 AM Laboratory work-up has returned, patient does demonstrate mild white count with left shift, electrolytes stable, creatinine worse than normal at 1.3. TSH e levated compared to normal, and free T4 is low which could be contributing to some of her fatigue, however urinalysis shows evidence of notable urinary tract infection, and CT scan of the abdomen shows an obstructed 1 cm stone, which is very concerning with UTI. Cefepime was started. Clinically the patient actually looks very well, vital signs are stable with no evidence of tachycardia or hypotension or shock. We spoke with Dr. Millard and discussed the case with him, he agrees on the need for surgical intervention. He requests admission. Admission orders will be placed. I have extensively reviewed the treatment plan with the patient. I have addressed all patient concerns at this time. I have also discussed the plan with the admitting physician and they agree with the current assessment and plan and have agreed to assume responsibility for the patient. All parties demonstrate verbal understanding and agreement with our assessment and plan at this time. The documentation in this chart was dictated using scoo mobility dictation software. Please excuse any dictation errors. Discussed the case with Dr. Lanza, she agrees to accept admission with Dr. Millard on consult. FINDINGS: Brain: Diffuse sulcal enlargement is compatible with age-related cerebral volume loss. There is no intracranial hemorrhage, mass effect, midline shift, or extra-axial collection. A tiny nodular focus of hyperattenuation along the right posterior aspect of the falx (series 2, image 19) may represent a tiny meningioma. There is an additional tiny suspected meningioma in the lateral left frontal region (image 20). Watson-white matter differentiation is preserved. There is no evidence of acute territorial infarct. Cerebral ventricles: Diffuse mild ventricular enlargement compatible with age- related cerebral volume loss. No hydrocephalus. Paranasal sinuses: The paranasal sinuses are clear bilaterally, without air- fluid levels. Mastoid air cells: A few opacities are noted in the bilateral mastoid air cells. Orbital cavities: Bilateral ocular lens replacements are noted. Bones/joints: Unremarkable. No depressed calvarial fracture. Soft tissues: Extracranial soft tissues are unremarkable. Vasculature: Atherosclerotic vascular calcifications are noted at the skull base IMPRESSION: No acute intracranial abnormality. No intracranial hemorrhage or depressed calvarial fracture. Thank you for allowing us to participate in the care of your patient. Dictated and Authenticated by: Isadora Donato MD 12/04/2022 6:17 AM Eastern Time ([place] & [place]) FINDINGS: Limitations: Image quality is degraded by artifact from the patient's arms, which were not elevated during imaging. Lungs: There is unchanged minimal linear scarring in the right middle and left lower lobes and the lingula. The lungs are otherwise clear and well-aerated, without consolidation or mass. The trachea and central main airways are patent and normal in caliber. Pleural spaces: Unremarkable. No pneumothorax. No pleural effusion. Heart: Heart size is normal. There are mild coronary artery calcifications. No pericardial effusion. Lymph nodes: No pathologically enlarged mediastinal or axillary lymph nodes. While no bulky hilar lymphadenopathy is suspected, characterization of hilar structures is limited without intravenous contrast. Vasculature: Normal caliber thoracic aorta with mild atherosclerotic mural calcification. The main pulmonary artery is normal in caliber. Bones/joints: There are near-completely healed fractures of the anterior right 2nd-5th ribs, new since 05/11/2022. No acute fractures or suspicious osseous lesions are identified. There are degenerative changes throughout the thoracic spine. Soft tissues: Unremarkable. IMPRESSION: 1. No acute abnormality in the chest. No consolidation or pleural effusion. 2. Incidental/nonemergent findings are discussed in the body of the report. FINDINGS: Limitations: Lack of intravenous contrast limits evaluation of the solid viscera and vasculature. Lungs: See above. Liver: Unremarkable, within the limits of noncontrast technique. Gallbladder and bile ducts: The gallbladder is surgically absent. There is no intrahepatic or extrahepatic biliary ductal dilatation. Pancreas: Atrophic. No acute abnormality. Spleen: Unremarkable. The spleen is normal in size. Adrenal glands: Unremarkable. Kidneys and ureters: There is mild left hydronephrosis secondary to a 1 mm obs tructing calculus at the ureteropelvic junction (coronal image 42). There is moderate left perinephric fat stranding, consistent with acute obstructive uropathy. No calcifications are identified in the right kidney or in the ureters. The right renal collecting system and right ureter are normal in caliber. Stomach and bowel: The stomach is nondilated. There is a tiny hiatal hernia. The small and large bowel are normal in caliber. There is a gas-filled diverticulum arising from the superior margin of the 4th portion of the duodenum. There is lipomatous hypertrophy of the ileocecal valve. Diverticula are noted throughout the descending and sigmoid colon, without focal pericolonic inflammatory changes to suggest diverticulitis. Appendix: No findings to suggest appendicitis. Intraperitoneal space: Unremarkable. No ascites, fluid collection, or pneumoperitoneum. Retroperitoneal space: Unremarkable. No retroperitoneal collection or mass. Vasculature: Moderate atherosclerotic vascular calcifications. Normal caliber abdominal aorta. Lymph nodes: No pathologically enlarged lymph nodes. Urinary bladder: Unremarkable. Reproductive: Unremarkable as visualized. Bones/joints: Degenerative changes. No fractures or suspicious osseous lesions. Soft tissues: No acute or suspicious abnormality. IMPRESSION: 1. Mild left hydronephrosis secondary to an obstructing 1 cm calculus at the ureteropelvic junction. 2. Additional incidental/nonemergent findings are discussed in the body of the report. Thank you for allowing us to participate in the care of your patient. Dictated and Authenticated by: Isadora Donato MD 12/04/2022 6:42 AM Eastern Time ([place]) HPI General Date/Time Provider Initiated Documentation: 12/04/22 05:00 . HPI Narrative: This is a 67-year-old female with a past medical history of high cholesterol, type 2 diabetes, asthma, vocal cord polyp, who presents today for dizziness, weakness, confusion, diarrhea, nausea, fever, and shortness of breath. She comes via EMS. EMS reports that over the last day or so the patient has had increased weakness and confusion with associated diarrhea and nausea but no vomiting. EMS noted a fever of 101 at home on their arrival. This evening the patient did fall and collapse trying to get out of bed, but did not hit her head, or have any loss of consciousness. Patient denies any chest pain or blood in her stool. No significant abdominal pain. No other complaints at this time. No history of smoking/tobacco abuse. Normally she does not use any oxygen. Oxygenation was 92% on room air when EMS arrived, and she was started on 2 L via nasal cannula. Related Data Home Medications Medication Instructions Recorded Confirmed lancets 28 gauge #100 ea 02/26/13 12/04/22 blood sugar diagnostic (OneTouch #100 strips 01/15/17 12/04/22 Ultra Test strips) [id number]-[id number] acid 0.4 1 tab PO DAILY 08/24/20 12/04/22 mg-lycopene 300 mcg-lutein 250 mcg tablet (Centrum Silver) omega 7-uib-bce-fish oil 1,200 mg 1 cap PO DAILY 08/24/20 12/04/22 (144 mg-216 mg) capsule (Fish Oil) acetaminophen 500 mg tablet 1,000 mg PO Q8H PRN pain #60 tabs 10/12/20 12/04/22 glucosamine sulf dipot 2 cap PO DAILY 10/12/20 12/04/22 chlr,msm,chond 550 mg-C 30 mg-rylee 1 mg capsule (Glucosamine Chondroitin) fluticasone propionate 110 2 puff inhalation BID #36 grams 03/30/22 12/04/22 mcg/actuation HFA aerosol inhaler (Flovent HFA) ibuprofen 600 mg tablet 600 mg PO HS PRN pain #30 tabs 04/20/22 12/04/22 glipizide 5 mg tablet 5 mg PO BID #180 tab-caps 06/22/22 12/04/22 albuterol sulfate 90 mcg/actuation 2 puff inhalation Q4H PRN 07/03/22 12/04/22 aerosol inhaler (Proventil HFA) bronchospasm #18 grams fluticasone propionate 50 2 spray intranasal DAILY 30 days 10/25/22 12/04/22 mcg/actuation nasal #16 grams spray,suspension (Flonase Allergy Relief) metformin 1,000 mg tablet 1,000 mg PO BID #180 tab-caps 11/10/22 12/04/22 Previous Rx's Medication Instructions Recorded acetaminophen 500 mg tablet 1,000 mg PO Q8H PRN pain #60 tabs 10/12/20 fluticasone propionate 110 2 puff inhalation BID #36 grams 03/30/22 mcg/actuation HFA aerosol inhaler (Flovent HFA) ibuprofen 600 mg tablet 600 mg PO HS PRN pain #30 tabs 04/20/22 glipizide 5 mg tablet 5 mg PO BID #180 tab-caps 06/22/22 albuterol sulfate 90 mcg/actuation 2 puff inhalation Q4H PRN 07/03/22 aerosol inhaler (Proventil HFA) bronchospasm #18 grams fluticasone propionate 50 2 spray intranasal DAILY 30 days 10/25/22 mcg/actuation nasal #16 grams spray,suspension (Flonase Allergy Relief) metformin 1,000 mg tablet 1,000 mg PO BID #180 tab-caps 11/10/22 Allergies Allergy/AdvReac Type Severity Reaction Status Date / Time aspirin Allergy Anaphylaxsi Verified 12/04/22 05:15 s atorvastatin AdvReac Intermediate Muscle pain Verified 12/04/22 05:15 General Stated Complaint: Dizzy/Sync RASHAD: 3 Review of Systems All systems reviewed & are unremarkable except as noted in HPI and below PFSH All Active Problems (Updated 12/04/22 @ 07:36 by Brennon García DO) Kidney stone (Chronic) Acute UTI (Acute) Hypothyroidism (Chronic) Hoarseness (Acute) Michael's edema of vocal folds (Acute) Essential hypertension (Chronic 04/10/17) Hyperlipidemia (Chronic) Obesity (Chronic) Primary osteoarthritis of left hip (Chronic 10/25/16) Smoker (Chronic) quit 03/2022 Type II diabetes mellitus (Chronic) Allergic rhinitis (Acute) Asthma (Chronic) History of nasal polyp (Acute) Postnasal drip (Acute) Vocal cord polyp (Acute) Snoring (Acute) Medical History Left cervical radiculopathy Pain clinic at the [facility] 03/25- stable Lumbosacral spondylosis without myelopathy Pain clinic injections didn't work 03/25 stable Nephrocalcinosis Trigger finger, left middle finger s/p left middle finger trigger release DOS: 10/26/20 Surgical History Appendectomy (02/09/79) Biopsy of breast Cholecystectomy (02/09/79) Dilation and curettage Endometrial Ablation (02/10/08) History of appendectomy History of bilateral ligation of fallopian tubes History of umbilical hernia repair Ligation of fallopian tube Repair of umbilical hernia (02/09/79) S/P carpal tunnel release both S/P cataract surgery both S/P shoulder hemiarthroplasty Status post breast biopsy Status post cholecystectomy Status post dilation and curettage Status post endometrial ablation Status post tonsillectomy Tonsillectomy (02/09/1965) Family History Mother Diabetes Personal history of malignant neoplasm UTERINE Heart disease Father Personal history of malignant neoplasm liver Heart disease Social History Smoking/Tobacco Use Status: Former Tobacco Use Quit Date: 03/05/22 Tobacco: How many years used: 50 Quit status: has quit before Second Hand Exposure: Yes Smoking risk assessment performed?: Yes Alcohol Intake: former Drug use: Never Substance use type: does not use Caregiver/Support person: No Household members: spouse Housing: house Number of Children: 4 number of grandchildren: 11 Communication Needs: None Do you need help understanding health information?: Rarely 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 Pets and animals: Yes Pets and animals: cat(s) Sexually active: No Do you think of yourself as: straight/heterosexual Current gender identity: female What is your relationship status?: How often do you talk on the phone with friends or family?: three or more times per week How often do you get together with friends or relatives?: three or more times per week How often do you attend scientology or mu-ism services?: decline to answer Do you belong to any clubs or organized social groups?: decline to answer Panel score (0-1 are the most socially isolated patients): 2 What type of physical activity do you participate in: none Seatbelt use: always Helmet use: Yes Helmet use: always Drive intox or ride w/intox company driver: No Do you feel safe at home: Yes Do you feel safe in your relationship?: Yes Exam Narrative Exam Narrative: 1.Const: Well-nourished, Well-developed, appearing stated age 2.Eyes: PERRL, no conjunctival injection, and symmetrical lids. 3.ENT: Atraumatic external nose and ears. Dry MM. Neck: Symmetric, trachea midline, No thyromegaly. No nuchal rigidity or meningeal signs. 4.CVS: +S1/S2, No murmurs or gallops. Peripheral pulses 2+ and equal in all e xtremities. Brisk capillary refill in all extremities. 5.RESP: Unlabored respiratory effort. Clear to auscultation bilaterally. No wheezes rales or rhonchi 6.GI: Soft, Nontender/Nondistended, No hepatosplenomegaly. No guarding or rebound. 7.MSK: Normocephalic/Atraumatic, Extremities w/o deformity or ttp No cyanosis or clubbing, Normal movement of all extremities 8.Skin: Warm, Dry. No rashes or lesions. 9.Neuro: school psychology specialist II-XII grossly intact. Sensation grossly intact, no focal neurologic deficits. 10.Psych: (AAO) x1. Course Vital Signs Vital signs: Vital Signs Temperature 37.3 C 12/04/22 04:58 Pulse 88 12/04/22 04:58 Respiratory Rate 20 12/04/22 04:58 Blood Pressure 145/37 H 12/04/22 04:58 Pulse Oximetry 94 12/04/22 04:58 Temperature 37.3 C 12/04/22 04:58 Pulse 88 12/04/22 04:58 Respiratory Rate 20 12/04/22 04:58 Respiratory Effort 12/04/22 05:07 Respiratory Depth Normal 12/04/22 05:07 Respiratory Pattern Normal 12/04/22 05:07 Blood Pressure 145/37 H 12/04/22 04:58 Blood Pressure Position Supine 12/04/22 04:58 Pulse Oximetry 94 12/04/22 04:58 Oxygen Delivery Method Room Air 12/04/22 04:58 Oxygen Flow Rate 0 12/04/22 04:58 Pain Level 0 12/04/22 04:58 Lab/Test Results Lab/Test Results: 12/04/22 05:02 Blood Blood Culture - Pending 12/04/22 05:02 Blood Blood Culture - Pending Laboratory Tests Range/Units 12/04/22 04:50 WBC (4.4-10.8) 10^3/uL 12.85 H RBC (3.93-5.22) 10^6/uL 3.28 L Hgb (11.2-15.7) g/dL 10.1 L Hct (36.0-46.0) % 31.4 L MCV (80-95) fL 96 H MCH (27.0-33.0) pg 30.8 MCHC (32.0-36.0) % 32.2 RDW (11.7-14.6) % 12.9 Plt Count (130-400) 10^3/uL 162 MPV (8.0-11.0) fL 9.8 Immature Gran % 0.7 Neutrophils % 86.2 Lymphocytes % 5.6 Monocytes % 7.2 Eosinophils % 0.0 Basophils % 0.3 Nucleated RBC % (0.0-0.3) % 0.0 Absolute Neutrophils (1.2-6.7) 10^3/uL 11.08 H Absolute Lymphocytes (1.2-3.4) 10^3/uL 0.72 L Absolute Monocytes (0.1-0.8) 10^3/uL 0.93 H Absolute Eosinophils (0.0-0.7) 10^3/uL 0.00 Absolute Basophils (0.0-0.2) 10^3/uL 0.04
[2022-12-04 05:34] LABS: PTT Activated 26.8 sec (21.0-27.5); Prothrombin Time 11.5 sec (9.3-11.0)
[2022-12-04 05:36] LABS: INR 1.1 (0.9-1.1)
[2022-12-04 05:43] LABS: Bilirubin Negative (Negative); Blood Moderate (Negative); Clarity Cloudy (Clear); Glucose Negative (Negative); Ketones 15 mg/dL (Negative); Leukocyte Esterase Small (Negative); Nitrite Negative (Negative); Specific Gravity 1.025 (1.005-1.025); Urobilinogen 0.2 EU/dL (Up TO 0.2); pH 5.5 (5-8)
[2022-12-04 05:50] LABS: C & S Indicated? Yes; WBC >50 HPF (0-5)
[2022-12-04 05:53] LABS: ALT 22 U/L (14-59); AST 10 U/L (15-37); Albumin 3.5 g/dL (3.4-5.0); Alkaline Phosphatase 78 U/L (46-116); Anion Gap 13.4 mmol/L (3-11); BUN 25 mg/dL (7-18); Bilirubin, Total 0.9 mg/dL (0.2-1.0); CO2 22.6 mmol/L (21.0-32.0); CREATININE 1.3 mg/dL (0.55-1.02); Calcium 9.2 mg/dL (8.5-10.1); Chloride 97 mmol/L (98-107); Estimated GFR 45.63 (mL/min/1.73m2); Glucose 325 mg/dL (74-106); Lipase 10 U/L (73-393); Potassium 4.2 mmol/L (3.5-5.1); Sodium 133 mmol/L (136-145); TSH (W/Ref FT4) 9.25 uIU/mL (0.36-3.74); Total Protein 7.2 g/dL (6.4-8.2); Troponin I < 50 ng/L (<or=60)
[2022-12-04 05:59] LABS: COVID-19 PCR Negative (Negative); Influenza A PCR Negative (Negative); Influenza B PCR Negative (Negative); RSV PCR Negative (Negative)
[2022-12-04 06:05] LABS: Source Nasopharynx
[2022-12-04 06:12] LABS: FREE T4 0.68 ng/dL (0.76-1.46)
--- NOTE | 2022-12-04 06:18 | DI.VRAD_ITS ---
PROCEDURE INFORMATION: Exam: CT Head Without Contrast Exam date and time: 12/04/2022 5:57 AM Age: 67 years old Clinical indication: Injury or trauma; Fall; Concussion/head injury; Consciousness not specified; Other: Confusion; Additional info: Fall, confused TECHNIQUE: Imaging protocol: Computed tomography of the head without contrast. Radiation optimization: All CT scans at this facility use at least one of these dose optimization techniques: automated exposure control; mA and/or kV adjustment per patient size (includes targeted exams where dose is matched to clinical indication); or iterative reconstruction. COMPARISON: No relevant prior studies for comparison. FINDINGS: Brain: Diffuse sulcal enlargement is compatible with age-related cerebral volume loss. There is no intracranial hemorrhage, mass effect, midline shift, or extra-axial collection. A tiny nodular focus of hyperattenuation along the right posterior aspect of the falx (series 2, image 19) may represent a tiny meningioma. There is an additional tiny suspected meningioma in the lateral left frontal region (image 20). Watson-white matter differentiation is preserved. There is no evidence of acute territorial infarct. Cerebral ventricles: Diffuse mild ventricular enlargement compatible with age-related cerebral volume loss. No hydrocephalus. Paranasal sinuses: The paranasal sinuses are clear bilaterally, without air-fluid levels. Mastoid air cells: A few opacities are noted in the bilateral mastoid air cells. Orbital cavities: Bilateral ocular lens replacements are noted. Bones/joints: Unremarkable. No depressed calvarial fracture. Soft tissues: Extracranial soft tissues are unremarkable. Vasculature: Atherosclerotic vascular calcifications are noted at the skull base. IMPRESSION: No acute intracranial abnormality. No intracranial hemorrhage or depressed calvarial fracture. Dictated and Authenticated by: Isadora Donato MD. Ordering:SHELLI Willett MD
[2022-12-04] MEDS: CEFEPIME 2 GM in Normal Saline 100 ML IVPB ×2 (06:35→19:23)
--- NOTE | 2022-12-04 06:43 | DI.VRAD_ITS ---
PROCEDURE INFORMATION: Exam: CT Chest Without Contrast; Diagnostic Exam date and time: 12/04/2022 5:59 AM Age: 67 years old Clinical indication: Nausea and vomiting and other: Cough, hypoxic, vomiting, diarrhea TECHNIQUE: Imaging protocol: Diagnostic computed tomography of the chest without contrast. Radiation optimization: All CT scans at this facility use at least one of these dose optimization techniques: automated exposure control; mA and/or kV adjustment per patient size (includes targeted exams where dose is matched to clinical indication); or iterative reconstruction. COMPARISON: CT CHEST LUNG CANCER SCREEN 05/11/2022 3:22 PM FINDINGS: Limitations: Image quality is degraded by artifact from the patient's arms, which were not elevated during imaging. Lungs: There is unchanged minimal linear scarring in the right middle and left lower lobes and the lingula. The lungs are otherwise clear and well-aerated, without consolidation or mass. The trachea and central main airways are patent and normal in caliber. Pleural spaces: Unremarkable. No pneumothorax. No pleural effusion. Heart: Heart size is normal. There are mild coronary artery calcifications. No pericardial effusion. Lymph nodes: No pathologically enlarged mediastinal or axillary lymph nodes. While no bulky hilar lymphadenopathy is suspected, characterization of hilar structures is limited without intravenous contrast. Vasculature: Normal caliber thoracic aorta with mild atherosclerotic mural calcification. The main pulmonary artery is normal in caliber. Bones/joints: There are near-completely healed fractures of the anterior right 2nd-5th ribs, new since 05/11/2022. No acute fractures or suspicious osseous lesions are identified. There are degenerative changes throughout the thoracic spine. Soft tissues: Unremarkable. IMPRESSION: 1. No acute abnormality in the chest. No consolidation or pleural effusion. 2. Incidental/nonemergent findings are discussed in the body of the report. PROCEDURE INFORMATION: Exam: CT Abdomen And Pelvis Without Contrast Exam date and time: 12/04/2022 5:59 AM Age: 67 years old Clinical indication: Nausea and vomiting and other: Cough, hypoxic, vomiting, diarrhea TECHNIQUE: Imaging protocol: Computed tomography of the abdomen and pelvis without contrast. Radiation optimization: All CT scans at this facility use at least one of these dose optimization techniques: automated exposure control; mA and/or kV adjustment per patient size (includes targeted exams where dose is matched to clinical indication); or iterative reconstruction. COMPARISON: No relevant prior studies for comparison. FINDINGS: Limitations: Lack of intravenous contrast limits evaluation of the solid viscera and vasculature. Lungs: See above. Liver: Unremarkable, within the limits of noncontrast technique. Gallbladder and bile ducts: The gallbladder is surgically absent. There is no intrahepatic or extrahepatic biliary ductal dilatation. Pancreas: Atrophic. No acute abnormality. Spleen: Unremarkable. The spleen is normal in size. Adrenal glands: Unremarkable. Kidneys and ureters: There is mild left hydronephrosis secondary to a 1 mm obstructing calculus at the ureteropelvic junction (coronal image 42). There is moderate left perinephric fat stranding, consistent with acute obstructive uropathy. No calcifications are identified in the right kidney or in the ureters. The right renal collecting system and right ureter are normal in caliber. Stomach and bowel: The stomach is nondilated. There is a tiny hiatal hernia. The small and large bowel are normal in caliber. There is a gas-filled diverticulum arising from the superior margin of the 4th portion of the duodenum. There is lipomatous hypertrophy of the ileocecal valve. Diverticula are noted throughout the descending and sigmoid colon, without focal pericolonic inflammatory changes to suggest diverticulitis. Appendix: No findings to suggest appendicitis. Intraperitoneal space: Unremarkable. No ascites, fluid collection, or pneumoperitoneum. Retroperitoneal space: Unremarkable. No retroperitoneal collection or mass. Vasculature: Moderate atherosclerotic vascular calcifications. Normal caliber abdominal aorta. Lymph nodes: No pathologically enlarged lymph nodes. Urinary bladder: Unremarkable. Reproductive: Unremarkable as visualized. Bones/joints: Degenerative changes. No fractures or suspicious osseous lesions. Soft tissues: No acute or suspicious abnormality. IMPRESSION: 1. Mild left hydronephrosis secondary to an obstructing 1 cm calculus at the ureteropelvic junction. 2. Additional incidental/nonemergent findings are discussed in the body of the report. Dictated and Authenticated by: Isadora Donato MD. Ordering:SHELLI Willett MD
[2022-12-04 08:02] LABS: Lactate 0.8 mmol/L (0.6-1.4)
[2022-12-04 08:38] LABS: Lab Add On Test DONE
[2022-12-04 08:53] LABS: C-Reactive Protein 23.75 mg/dL (0.0-0.3)
[2022-12-04 09:25] LABS: Procalcitonin 1.1 ng/mL
[2022-12-04] MEDS: Acetaminophen 325 MG TAB PO (09:37)
--- NOTE | 2022-12-04 10:25 | W.ANESPRE ---
General Info Date of Service Date Performed: 12/04/22 Height: 5 ft 4 in Weight: 111.13 kg Body Mass Index (BMI): 42.0 Surgical Procedure: Operation Date: 12/04/22 12:10 Proposed Procedure Side Surgeon p Cystoscopy/Retrograde/ Stent Insertion Left Shane Millard MD Meds Allergies and Home Medications Allergies Allergy/AdvReac Type Severity Reaction Status Date / Time aspirin Allergy Anaphylaxsi Verified 12/04/22 05:15 s atorvastatin AdvReac Intermediate Muscle pain Verified 12/04/22 05:15 Home Medication Medication Instructions Recorded lancets 28 gauge #100 ea 02/26/13 blood sugar diagnostic (OneTouch #100 strips 01/15/17 Ultra Test strips) lwzurrkn-srf-ogfvx acid 0.4 1 tab PO DAILY 08/24/20 mg-lycopene 300 mcg-lutein 250 mcg tablet (Centrum Silver) omega 6-kbt-wvf-fish oil 1,200 mg 1 cap PO DAILY 08/24/20 (144 mg-216 mg) capsule (Fish Oil) acetaminophen 500 mg tablet 1,000 mg PO Q8H PRN pain #60 tabs 10/12/20 glucosamine sulf dipot 2 cap PO DAILY 10/12/20 chlr,msm,chond 550 mg-C 30 mg-rylee 1 mg capsule (Glucosamine Chondroitin) fluticasone propionate 110 2 puff inhalation BID #36 grams 03/30/22 mcg/actuation HFA aerosol inhaler (Flovent HFA) ibuprofen 600 mg tablet 600 mg PO HS PRN pain #30 tabs 04/20/22 glipizide 5 mg tablet 5 mg PO BID #180 tab-caps 06/22/22 albuterol sulfate 90 mcg/actuation 2 puff inhalation Q4H PRN 07/03/22 aerosol inhaler (Proventil HFA) bronchospasm #18 grams fluticasone propionate 50 2 spray intranasal DAILY 30 days 10/25/22 mcg/actuation nasal #16 grams spray,suspension (Flonase Allergy Relief) metformin 1,000 mg tablet 1,000 mg PO BID #180 tab-caps 11/10/22 Current Visit Medications: Current Medications Generic Name Dose Route Start Last Admin Trade Name Freq PRN Reason Stop Dose Admin Acetaminophen 0 mg 12/04/22 07:58 12/04/22 09:37 Acetaminophen 325 Mg Tab PO 650 mg Q4H PRN PRN Administration Al Hydrox/Mg Hydrox/Simethicone 30 ml 12/04/22 07:58 Mylanta Suspension 30 Ml Cup PO Q2H PRN PRN Dimethicone/Zinc Oxide 0 gm 12/04/22 07:53 Marion Protect Cream 142 Gm Tube TP PRN PRN Docusate Sodium 100 mg 12/04/22 07:58 Docusate Sodium 100 Mg Cap PO TID PRN PRN Sodium Chloride 500 mls @ 0 mls/hr 12/04/22 07:53 Saline 500ml Bag IV PRN PRN As Directed Ringer's Solution 1,000 mls @ 150 mls/hr 12/04/22 08:00 IV INFUSION LORI Cefepime HCl 2 gm/ Sodium 100 mls @ 200 mls/hr 12/04/22 18:00 Chloride IVPB Q12H LORI IV Miscellaneous Supplies 1 each 12/04/22 08:00 Iv Access IV DIRECTED LORI Magnesium Hydroxide 30 ml 12/04/22 07:58 Milk Of Magnesia 30 Ml Cup PO DAILY PRN PRN Sodium Chloride 0 ml 12/04/22 07:53 Normal Saline Flush 10 Ml Syr IVP PRN PRN PFSH Active Problems Active Problems: Problem Status Onset Code Kidney stone N20.0 Acute UTI N39.0 Hypothyroidism E03.9 Hoarseness R49.0 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 Essential hypertension 04/10/17 I10 Hyperlipidemia E78.5 Obesity E66.9 Primary osteoarthritis of left hip 10/25/16 M16.12 Smoker F17.200 Type II diabetes mellitus E11.9 Allergic rhinitis J30.9 Asthma J45.909 History of nasal polyp Z87.09 Postnasal drip R09.82 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 Snoring R06.83 Medical History Medical History Left cervical radiculopathy Pain clinic at the [facility] 03/25- stable Lumbosacral spondylosis without myelopathy Pain clinic injections didn't work 03/25 stable Nephrocalcinosis Trigger finger, left middle finger s/p left middle finger trigger release DOS: 10/26/20 Surgical History Surgical History Appendectomy (02/09/79) Biopsy of breast Cholecystectomy (02/09/79) Dilation and curettage Endometrial Ablation (02/10/08) History of appendectomy History of bilateral ligation of fallopian tubes History of umbilical hernia repair Ligation of fallopian tube Repair of umbilical hernia (02/09/79) S/P carpal tunnel release both S/P cataract surgery both S/P shoulder hemiarthroplasty Status post breast biopsy Status post cholecystectomy Status post dilation and curettage Status post endometrial ablation Status post tonsillectomy Tonsillectomy (02/09/1965) Tobacco Smoking/Tobacco Use Status: Former Tobacco Use Passive smoking exposure: Yes Second hand exposure: Yes Alcohol Alcohol Intake: former Substance Use Substance use: Never Substance use type: does not use Vital Signs and Lab Results Vital Signs Most Recent Vital Signs in EMR: Most Recent Vital Signs Temp Pulse Resp BP Pulse Ox 37.3 C 82 16 111/71 98 12/04/22 09:37 12/04/22 09:11 12/04/22 09:11 12/04/22 09:11 12/04/22 09:11 Point of Care Results Point of Care Results: BGL reported as 230 Lab Results Result Diagrams: 12/04/22 04:50 12/04/22 04:50 Blood Type / Crossmatch: No Data to Display Complete Blood Count: White Blood Count 12.85 10^3/uL (4.4-10.8) H 12/04/22 04:50 Red Blood Count 3.28 10^6/uL (3.93-5.22) L 12/04/22 04:50 Hemoglobin 10.1 g/dL (11.2-15.7) L 12/04/22 04:50 Hematocrit 31.4 % (36.0-46.0) L 12/04/22 04:50 Platelet Count 162 10^3/uL (130-400) 12/04/22 04:50 Venous Blood Lactate 0.8 mmol/L (0.6-1.4) 12/04/22 07:58 Complete Metabolic Panel: Sodium 133 mmol/L (136-145) L 12/04/22 04:50 Potassium 4.2 mmol/L (3.5-5.1) 12/04/22 04:50 Chloride 97 mmol/L (98-107) L 12/04/22 04:50 Carbon Dioxide 22.6 mmol/L (21.0-32.0) 12/04/22 04:50 BUN 25 mg/dL (7-18) H 12/04/22 04:50 Creatinine 1.3 mg/dL (0.55-1.02) H 12/04/22 04:50 Est GFR (CKD-EPI 2020) 45.63 (mL/min/1.73m2) 12/04/22 04:50 Calcium 9.2 mg/dL (8.5-10.1) 12/04/22 04:50 Albumin 3.5 g/dL (3.4-5.0) 12/04/22 04:50 Glucose 325 mg/dL (74-106) H 12/04/22 04:50 Hemoglobin A1c 8.2 % (<5.7) H 11/28/22 08:58 C-Reactive Protein 23.75 mg/dL (0.0-0.3) H 12/04/22 04:50 Liver Function Panel: Alanine Aminotransferase (ALT/SGPT) 22 U/L (14-59) 12/04/22 04:50 Aspartate Amino Transf (AST/SGOT) 10 U/L (15-37) L 12/04/22 04:50 Coagulation Panel: INR International Normalized Ratio 1.1 (0.9-1.1) 12/04/22 04:50 Prothrombin Time 11.5 sec (9.3-11.0) H 12/04/22 04:50 Activated Partial Thromboplast Time 26.8 sec (21.0-27.5) 12/04/22 04:50 Cardiac Panel: Troponin I < 50 ng/L (<or=60) 12/04/22 Arterial Blood Gas: No Data to Display Venous Blood Gas: No Data to Display Pancreas Panel: Lipase 10 U/L (73-393) 12/04/22 04:50 Thyroid Panel: Thyroid Stimulating Hormone (TSH) 9.25 uIU/mL (0.36-3.74) H 12/04/22 04:50 Infectious Disease: Coronavirus (COVID-19)(PCR) Negative (Negative) 12/04/22 04:50 Coronavirus 2019 Source Nasopharynx 12/04/22 04:50 Influenza Virus Type A (PCR) Negative (Negative) 12/04/22 04:50 Influenza Virus Type B (PCR) Negative (Negative) 12/04/22 04:50 Respiratory Syncytial Virus (PCR) Negative (Negative) 12/04/22 04:50 Blood Cultures: No Data to Display Toxicology Panel: No Data to Display Imaging and Studies Imaging and Studies Study information below may be from another EMR and interpreted by another provider. Please see original notes in EMR for more complete details. EKG Summary: 12/04/2022: Exam: Resting ECG Reason for Exam: dizziness Patient Location: E HR:86 bpm ECG Measurements Heart Rate 86 AXIS CA 187 P 53 QRSd 95 QRS -6 QT 352 T35 QTc 421 Conclusion Sinus rhythm...normal P axis, V-rate 60- 99 Physician: no stemi Anesthesia Assessment and Plan Anesthesia History Personal History: No History of Anesthesia Complications Family History: No Family History of Anesthesia Complications Exercise Tolerance Exercise Tolerance: Metabolic Equivalents>4 Pertinent Negatives Pertinent Negatives: No Symptoms of GERD (Poorly controlled GERD, more active when she eats and drinks, currently NPO.), No Major Cardiovascular Symptoms or Complaints and No Major Pulmonary Symptoms or Complaints Cardiac & Pulmonary Exam Cardiac Exam: Normal S1/S2 Heart Sounds Pulmonary Exam: Clear Bilateral Breath Sounds Implantable Cardiac Device Does patient have a Pacemaker or an ICD?: No Airway Exam Known Difficult Airway: No Mallampati Class: 2 Mouth Opening: Normal (> 3cm) Thyromental Distance: Greater than 3 cm Neck Range of Motion: Full ROM Neck Circumference: Thick Teeth Condition: Normal Dentition (Several teeth missing) ASA Classification ASA Score: ASA 3 Emergency Case?: No NPO Status NPO Status: NPO Clears >2 hours, Solids >8 hours Anesthesia Plan Resuscitation Status: Full Code Anesthesia Technique: General Anesthesia Airway Planned: LMA Monitors Used: Standard Monitors
--- NOTE | 2022-12-04 12:04 | W.PM.HP.N ---
Date of service: 12/04/22 Time of Service: 12:04 Assessment and Plan Assessment and plan (1) Kidney stone: Status: Acute Assessment and plan: CT of abdomen - there is a 1.1 cm stone in the left renal pelvis causing moderate hydronephrosis.? No masses seen. Dr Millard consulted - see his note To the OR for stent - stent is in place we will wait until her final blood and urine cultures are available and treat her with a full course of antibiotics, plan for operating room to address her stone after infection has cleared. (2) Acute UTI: Status: Acute Assessment and plan: See above Obstructing stone - stent placed - abx given - gentamycin x [address] Millard Poor urine output - 500 ml LR bolus given - frausto in place (3) Essential hypertension: Status: Chronic Assessment and plan: Stable; monitor Continue home meds (4) Hyperlipidemia: Status: Chronic Assessment and plan: continue home meds (5) Obesity: Status: Chronic Assessment and plan: Heart healthy/Reduced carb diet Encourage diet /exercise when discharged to home (6) Type II diabetes mellitus: Status: Chronic Assessment and plan: SS Insulin - hold oral med FSBS AC HS Qualifiers: Diabetes mellitus complication status: without complication 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 insulin use: without senior care use Qualified Code(s): E11.9 - Type 2 diabetes mellitus without complications (7) DVT prophylaxis: Status: Acute Assessment and plan: Enoxaparin 40 mg daily (8) Discharge planning issues: Status: Acute Assessment and plan: Home when medically stable and agreed upon by Dr Millard do not anticipate she will need any services Discussed with Dr Lanza History of Present Illness History of Present Illness Chief Complaint: Fall; confusion Narrative: This is a 67-year-old female with a past medical history of high cholesterol, type 2 diabetes, asthma, vocal cord polyp, who presented via EMS to the [facility] ED for dizziness, weakness, confusion, diarrhea, nausea, fever, and shortness of breath.? EMS noted a fever of 101 at home. The patient reports falling but denies hitting her head, and denied any loss of consciousness.? Patient denied chest pain, denied abdominal pain and denied blood in her stool.? No history of smoking/tobacco/drug abuse. Oxygenation was 92% on room air when EMS arrived, and she was started on 2 L via nasal cannula. She does not use oxygen at home.? Labs in the ED included a mild white count with left shift, electrolytes stable, creatinine worse than normal at 1.3.? TSH elevated compared to normal, and free T4 is low which could be contributing to some of her fatigue, however urinalysis shows evidence of notable urinary tract infection, and CT scan of the abdomen shows an obstructed 1 cm stone, which is very concerning with UTI.? Cefepime was started.? Clinically the patient actually looked well, vital signs were stable with no evidence of tachycardia or hypotension or shock.? Dr. Millard was consulted he recommended surgical intervention.? Dr. Millard took the patient to the OR and she has been admitted to the medical floor stable for IV antibiotics. Review of Systems All systems reviewed & are unremarkable except as noted in HPI and below PFSH All Active Problems (Updated 12/04/22 @ 17:40 by Mindy Espino NP) DVT prophylaxis (Acute) Discharge planning issues (Acute) Kidney stone (Acute) Acute UTI (Acute) Hypothyroidism (Chronic) Hoarseness (Acute) Michael's edema of vocal folds (Acute) Essential hypertension (Chronic 04/10/17) Hyperlipidemia (Chronic) Obesity (Chronic) Primary osteoarthritis of left hip (Chronic 10/25/16) Smoker (Chronic) quit 03/2022 Type II diabetes mellitus (Chronic) Allergic rhinitis (Acute) Asthma (Chronic) History of nasal polyp (Acute) Postnasal drip (Acute) Vocal cord polyp (Acute) Snoring (Acute) Medical History Left cervical radiculopathy Pain clinic at the hospital 03/25- stable Lumbosacral spondylosis without myelopathy Pain clinic injections didn't work 03/25 stable Nephrocalcinosis Trigger finger, left middle finger s/p left middle finger trigger release DOS: 10/26/20 Surgical History Appendectomy (02/09/79) Biopsy of breast Cholecystectomy (02/09/79) Dilation and curettage Endometrial Ablation (02/10/08) History of appendectomy History of bilateral ligation of fallopian tubes History of umbilical hernia repair Ligation of fallopian tube Repair of umbilical hernia (02/09/79) S/P carpal tunnel release both S/P cataract surgery both S/P shoulder hemiarthroplasty Status post breast biopsy Status post cholecystectomy Status post dilation and curettage Status post endometrial ablation Status post tonsillectomy Tonsillectomy (02/09/1965) Family History Mother Diabetes Personal history of malignant neoplasm UTERINE Heart disease Father Personal history of malignant neoplasm liver Heart disease Social History Smoking/Tobacco Use Status: Former Tobacco Use Quit Date: 03/05/22 Tobacco: How many years used: 50 Quit status: has quit before Second Hand Exposure: Yes Smoking risk assessment performed?: Yes Alcohol Intake: former Drug use: Never Substance use type: does not use Caregiver/Support person: No Household members: spouse Housing: house Number of Children: 4 number of grandchildren: 11 Communication Needs: None Do you need help understanding health information?: Rarely 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 Pets and animals: Yes Pets and animals: cat(s) Sexually active: No Do you think of yourself as: straight/heterosexual Current gender identity: female What is your relationship status?: How often do you talk on the phone with friends or family?: three or more times per week How often do you get together with friends or relatives?: three or more times per week How often do you attend protestant or orthodoxy services?: decline to answer Do you belong to any clubs or organized social groups?: decline to answer Panel score (0-1 are the most socially isolated patients): 2 What type of physical activity do you participate in: none Seatbelt use: always Helmet use: Yes Helmet use: always Drive intox or ride w/intox bus driver/monitor: No Do you feel safe at home: Yes Do you feel safe in your relationship?: Yes Meds Allergies and Home Medications Allergies Allergy/AdvReac Type Severity Reaction Status Date / Time aspirin Allergy Anaphylaxsi Verified 12/04/22 05:15 s atorvastatin AdvReac Intermediate Muscle pain Verified 12/04/22 05:15 Home Medications Medication Instructions Recorded Confirmed Type lancets 28 gauge #100 ea 02/26/13 12/04/22 History blood sugar diagnostic (OneTouch #100 strips 01/15/17 12/04/22 History Ultra Test strips) aqftzvtr-bfv-rdbow acid 0.4 1 tab PO DAILY 08/24/20 12/04/22 History mg-lycopene 300 mcg-lutein 250 mcg tablet (Centrum Silver) omega 5-ijd-xot-fish oil 1,200 mg 1 cap PO DAILY 08/24/20 12/04/22 History (144 mg-216 mg) capsule (Fish Oil) acetaminophen 500 mg tablet 1,000 mg PO Q8H PRN pain #60 tabs 10/12/20 12/04/22 Rx glucosamine sulf dipot 2 cap PO DAILY 10/12/20 12/04/22 History chlr,msm,chond 550 mg-C 30 mg-rylee 1 mg capsule (Glucosamine Chondroitin) fluticasone propionate 110 2 puff inhalation BID #36 grams 03/30/22 12/04/22 Rx mcg/actuation HFA aerosol inhaler (Flovent HFA) ibuprofen 600 mg tablet 600 mg PO HS PRN pain #30 tabs 04/20/22 12/04/22 Rx glipizide 5 mg tablet 5 mg PO BID #180 tab-caps 06/22/22 12/04/22 Rx albuterol sulfate 90 mcg/actuation 2 puff inhalation Q4H PRN 07/03/22 12/04/22 Rx aerosol inhaler (Proventil HFA) bronchospasm #18 grams fluticasone propionate 50 2 spray intranasal DAILY 30 days 10/25/22 12/04/22 Rx mcg/actuation nasal #16 grams spray,suspension (Flonase Allergy Relief) metformin 1,000 mg tablet 1,000 mg PO BID #180 tab-caps 11/10/22 12/04/22 Rx Exam Narrative Exam Narrative: 1.Const: Well-nourished, Well-developed, appearing stated age 2.Eyes: PERRL, no conjunctival injection, and symmetrical lids. 3.ENT: Atraumatic external nose and ears. Dry MM. Neck: Symmetric, trachea midline, No thyromegaly. No nuchal rigidity or meningeal signs. 4.CVS: +S1/S2, No murmurs or gallops. Peripheral pulses 2+ and equal in all extremities. Brisk capillary refill in all extremities. 5.RESP: Unlabored respiratory effort. Clear to auscultation bilaterally. No wheezes rales or rhonchi 6.GI: Soft, Nontender/Nondistended, No hepatosplenomegaly. No guarding or rebound. 7.MSK: Normocephalic/Atraumatic, Extremities w/o deformity or ttp No cyanosis or clubbing, Normal movement of all extremities 8.Skin: Warm, Dry. No rashes or lesions. 9.Neuro: group leader II-XII grossly intact. Sensation grossly intact, no focal neurologic deficits. 10.Psych: (AAO) x 3. Const General: cooperative and no acute distress Orientation: alert, awake and oriented x3 HENMT Head: normal to inspection Face and sinus: normal facial exam Eyes General: appearance normal, both eyes and all related structures Pupils: PERRL EOM: EOM intact bilaterally Neck Neck: normal visual inspection Lymphatic: no lymphadenopathy noted Chest Chest: normal inspection of the chest and no tenderness Resp Effort & Inspection: normal respiratory effort, able to speak in complete sentences and other (Voice is hoarse) Auscultation: diminished lung sounds bilaterally throughout Cardio Rate: regular rate Rhythm: regular rhythm GI Inspection: normal to inspection Palpation: soft, not firm, not rigid and nontender Auscultation: hypoactive bowel sounds Back/Spine/Pelvis Thoracic/Lumbar Spine: thoracic and lumbar spine normal to inspection Pelvis: no pain with anterior-posterior compression Skin General skin exam: no rashes or lesions noted Neuro General: patient alert, patient awake and patient oriented x3 Cognition: normal cognition Speech: speech normal Motor: muscle tone normal throughout Sensory Exam: no sensory deficits noted Extrem General: normal to inspection, full ROM, capillary refill normal, no calf tenderness bilaterally and no edema Psych Appearance: grossly normal Mental Status: mental status grossly normal Speech and Movement: speech and movement normal Affect: normal affect Results Labs Result diagrams: 12/04/22 04:50 12/04/22 04:50 Labs: Laboratory Results - last 24 hr 12/04/22 12/04/22 12/04/22 04:50 04:50 04:50 WBC 12.85 H RBC 3.28 L Hgb 10.1 L Hct 31.4 L MCV 96 H MCH 30.8 MCHC 32.2 RDW 12.9 Plt Count 162 MPV 9.8 Immature Gran % 0.7 Neutrophils % 86.2 Lymphocytes % 5.6 Monocytes % 7.2 Eosinophils % 0.0 Basophils % 0.3 Nucleated RBC % 0.0 Absolute Neutrophils 11.08 H Absolute Lymphocytes 0.72 L Absolute Monocytes 0.93 H Absolute Eosinophils 0.00 Absolute Basophils 0.04 PT INR APTT VBG Lactate Sodium 133 L Potassium 4.2 Chloride 97 L Carbon Dioxide 22.6 Anion Gap 13.4 H BUN 25 H Creatinine 1.3 H Est GFR (CKD-EPI 2020) 45.63 Glucose 325 H Calcium 9.2 Total Bilirubin 0.9 AST 10 L ALT 22 Alkaline Phosphatase 78 Troponin I < 50 C-Reactive Protein Total Protein 7.2 Albumin 3.5 Lipase 10 Procalcitonin TSH 9.25 H Free T4 0.68 L Urine Color Urine Clarity Urine pH Ur Specific [place] Urine Protein Urine Ketones Urine Blood Urine Nitrite Urine Bilirubin Urine Urobilinogen Ur Leukocyte Esterase Urine RBC Urine WBC Ur Epithelial Cells Urine Crystals Urine Bacteria Urine Mucus Ur Culture Indicated? Urine Glucose COVID-19 Source Nasopharynx SARS-CoV-2 (PCR) Negative Influenza Type A (PCR) Negative Influenza Type B (PCR) Negative RSV (PCR) Negative Add-On Test Request 12/04/22 12/04/22 12/04/22 04:50 04:50 04:50 WBC RBC Hgb Hct MCV MCH MCHC RDW Plt Count MPV Immature Gran % Neutrophils % Lymphocytes % Monocytes % Eosinophils % Basophils % Nucleated RBC % Absolute Neutrophils Absolute Lymphocytes Absolute Monocytes Absolute Eosinophils Absolute Basophils PT 11.5 H INR 1.1 APTT 26.8 VBG Lactate Sodium Potassium Chloride Carbon Dioxide Anion Gap BUN Creatinine Est GFR (CKD-EPI 2020) Glucose Calcium Total Bilirubin AST ALT Alkaline Phosphatase Troponin I C-Reactive Protein Total Protein Albumin Lipase Procalcitonin 1.1 TSH Free T4 Urine Color Urine Clarity Urine pH Ur Specific [place] Urine Protein Urine Ketones Urine Blood Urine Nitrite Urine Bilirubin Urine Urobilinogen Ur Leukocyte Esterase Urine RBC Urine WBC Ur Epithelial Cells Urine Crystals Urine Bacteria Urine Mucus Ur Culture Indicated? Urine Glucose COVID-19 Source SARS-CoV-2 (PCR) Influenza Type A (PCR) Influenza Type B (PCR) RSV (PCR) Add-On Test Request DONE 12/04/22 12/04/22 12/04/22 04:50 05:25 05:31 WBC RBC Hgb Hct MCV MCH MCHC RDW Plt Count MPV Immature Gran % Neutrophils % Lymphocytes % Monocytes % Eosinophils % Basophils % Nucleated RBC % Absolute Neutrophils Absolute Lymphocytes Absolute Monocytes Absolute Eosinophils Absolute Basophils PT INR APTT VBG Lactate Sodium Potassium Chloride Carbon Dioxide Anion Gap BUN Creatinine Est GFR (CKD-EPI 2020) Glucose Calcium Total Bilirubin AST ALT Alkaline Phosphatase Troponin I C-Reactive Protein 23.75 H Total Protein Albumin Lipase Procalcitonin TSH Free T4 Urine Color Yellow Cancelled Urine Clarity Cloudy Cancelled Urine pH 5.5 Cancelled Ur Specific [place] 1.025 Cancelled Urine Protein 100 H Cancelled Urine Ketones 15 H Cancelled Urine Blood Moderate H Cancelled Urine Nitrite Negative Cancelled Urine Bilirubin Negative Cancelled Urine Urobilinogen 0.2 Cancelled Ur Leukocyte Esterase Small H Cancelled Urine RBC Not Applicable Urine WBC >50 H Ur Epithelial Cells Not Applicable Urine Crystals Not Applicable Urine Bacteria Not Applicable Urine Mucus Not Applicable Ur Culture Indicated? Yes Urine Glucose Negative Cancelled COVID-19 Source SARS-CoV-2 (PCR) Influenza Type A (PCR) Influenza Type B (PCR) RSV (PCR) Add-On Test Request 12/04/22 07:58 WBC RBC Hgb Hct MCV MCH MCHC RDW Plt Count MPV Immature Gran % Neutrophils % Lymphocytes % Monocytes % Eosinophils % Basophils % Nucleated RBC % Absolute Neutrophils Absolute Lymphocytes Absolute Monocytes Absolute Eosinophils Absolute Basophils PT INR APTT VBG Lactate 0.8 Sodium Potassium Chloride Carbon Dioxide Anion Gap BUN Creatinine Est GFR (CKD-EPI 2020) Glucose Calcium Total Bilirubin AST ALT Alkaline Phosphatase Troponin I C-Reactive Protein Total Protein Albumin Lipase Procalcitonin TSH Free T4 Urine Color Urine Clarity Urine pH Ur Specific [place] Urine Protein Urine Ketones Urine Blood Urine Nitrite Urine Bilirubin Urine Urobilinogen Ur Leukocyte Esterase Urine RBC Urine WBC Ur Epithelial Cells Urine Crystals Urine Bacteria Urine Mucus Ur Culture Indicated? Urine Glucose COVID-19 Source SARS-CoV-2 (PCR) Influenza Type A (PCR) Influenza Type B (PCR) RSV (PCR) Add-On Test Request Last Vital Signs Temp 37.3 C 12/04/22 09:37 Pulse 82 12/04/22 09:11 Resp 16 12/04/22 09:11 BP 111/71 12/04/22 09:11 Pulse Ox 98 12/04/22 09:11 Time Spent Time spent with Patient: 40-54 minutes Time was spent: preparing to see the patient(eg.review tests), obtaining and/or reviewing separately otained hiistory, ordering medications,tests, procedures, referring, communicating with other health rn palliative care, indepentently interpreting results, counseling the patient and care coordination
--- NOTE | 2022-12-04 12:10 | UCONE_ITS ---
Date of service: 12/04/22 Time of Service: 12:11 Assessment and Plan Assessment and plan (1) Kidney stone: Status: Chronic (2) Acute UTI: Status: Acute Assessment and plan: The patient has a large kidney stone that is unlikely to pass. Most concerning, however, is the presence of hydronephrosis and the likely urinary tract infection. We generally recommend bringing these patients to the operating room urgently to place a ureteral stent to allow any infected urine to drain. We do not recommend ureteroscopy under the same anesthetic as there is a much higher risk of inducing urosepsis. Once the stent is in place we can wait until her final blood and urine cultures are available and treat her with a full course of antibiotics. We can then make a plan to return trip to the operating room to address her stone. History of Present Illness History of Present Illness Chief Complaint: Left ureteral stone Narrative: This is a 67-year-old woman who presented to the emergency department with mental status changes. She was not febrile on admission, but she did have an elevated white blood count with a left shift. She was not having much abdominal pain but did admit to quite a bit of nausea. Her urinalysis is quite concerning for a urinary tract infection. Her CT of the abdomen and pelvis shows left hydronephrosis with a 1 cm stone at the left UPJ. She has no previous history of stone disease or urologic surgery. She does have a history of diabetes mellitus PFSH All Active Problems (Updated 12/04/22 @ 07:36 by Brennon García DO) Kidney stone (Chronic) Acute UTI (Acute) Hypothyroidism (Chronic) Hoarseness (Acute) Michael's edema of vocal folds (Acute) Essential hypertension (Chronic 04/10/17) Hyperlipidemia (Chronic) Obesity (Chronic) Primary osteoarthritis of left hip (Chronic 10/25/16) Smoker (Chronic) quit 03/2022 Type II diabetes mellitus (Chronic) Allergic rhinitis (Acute) Asthma (Chronic) History of nasal polyp (Acute) Postnasal drip (Acute) Vocal cord polyp (Acute) Snoring (Acute) Medical History Left cervical radiculopathy Pain clinic at the hospital 03/25- stable Lumbosacral spondylosis without myelopathy Pain clinic injections didn't work 5/21 stable Nephrocalcinosis Trigger finger, left middle finger s/p left middle finger trigger release DOS: 10/26/20 Surgical History Appendectomy (02/09/79) Biopsy of breast Cholecystectomy (02/09/79) Dilation and curettage Endometrial Ablation (02/10/08) History of appendectomy History of bilateral ligation of fallopian tubes History of umbilical hernia repair Ligation of fallopian tube Repair of umbilical hernia (02/09/79) S/P carpal tunnel release both S/P cataract surgery both S/P shoulder hemiarthroplasty Status post breast biopsy Status post cholecystectomy Status post dilation and curettage Status post endometrial ablation Status post tonsillectomy Tonsillectomy (02/09/1965) Family History Mother Diabetes Personal history of malignant neoplasm UTERINE Heart disease Father Personal history of malignant neoplasm liver Heart disease Social History Smoking/Tobacco Use Status: Former Tobacco Use Quit Date: 03/05/22 Tobacco: How many years used: 50 Quit status: has quit before Second Hand Exposure: Yes Smoking risk assessment performed?: Yes Alcohol Intake: former Drug use: Never Substance use type: does not use Caregiver/Support person: No Household members: spouse Housing: house Number of Children: 4 number of grandchildren: 11 Communication Needs: None Do you need help understanding health information?: Rarely 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 Pets and animals: Yes Pets and animals: cat(s) Sexually active: No Do you think of yourself as: straight/heterosexual Current gender identity: female What is your relationship status?: How often do you talk on the phone with friends or family?: three or more times per week How often do you get together with friends or relatives?: three or more times per week How often do you attend judaism or sabianist services?: decline to answer Do you belong to any clubs or organized social groups?: decline to answer Panel score (0-1 are the most socially isolated patients): 2 What type of physical activity do you participate in: none Seatbelt use: always Helmet use: Yes Helmet use: always Drive intox or ride w/intox rental car ferry driver: No Do you feel safe at home: Yes Do you feel safe in your relationship?: Yes Exam Narrative Exam Narrative: Her vital signs are documented elsewhere in the chart Her chest wall motion is normal. She is not short of breath at rest. Her abdomen is soft with no guarding or rebound tenderness She is awake and alert I reviewed her CT scan on the PACS system. There is a large obstructing stone at the left UPJ Results Last Vital Signs Temp 37.3 C 12/04/22 09:37 Pulse 82 12/04/22 09:11 Resp 16 12/04/22 09:11 BP 111/71 12/04/22 09:11 Pulse Ox 98 12/04/22 09:11 Labs Result diagrams: 12/04/22 04:50 12/04/22 04:50 Labs: Laboratory Results - last 24 hr 12/04/22 12/04/22 12/04/22 04:50 04:50 04:50 WBC 12.85 H RBC 3.28 L Hgb 10.1 L Hct 31.4 L MCV 96 H MCH 30.8 MCHC 32.2 RDW 12.9 Plt Count 162 MPV 9.8 Immature Gran % 0.7 Neutrophils % 86.2 Lymphocytes % 5.6 Monocytes % 7.2 Eosinophils % 0.0 Basophils % 0.3 Nucleated RBC % 0.0 Absolute Neutrophils 11.08 H Absolute Lymphocytes 0.72 L Absolute Monocytes 0.93 H Absolute Eosinophils 0.00 Absolute Basophils 0.04 PT INR APTT VBG Lactate Sodium 133 L Potassium 4.2 Chloride 97 L Carbon Dioxide 22.6 Anion Gap 13.4 H BUN 25 H Creatinine 1.3 H Est GFR (CKD-EPI 2020) 45.63 Glucose 325 H Calcium 9.2 Total Bilirubin 0.9 AST 10 L ALT 22 Alkaline Phosphatase 78 Troponin I < 50 C-Reactive Protein Total Protein 7.2 Albumin 3.5 Lipase 10 Procalcitonin TSH 9.25 H Free T4 0.68 L Urine Color Urine Clarity Urine pH Ur Specific [place] Urine Protein Urine Ketones Urine Blood Urine Nitrite Urine Bilirubin Urine Urobilinogen Ur Leukocyte Esterase Urine RBC Urine WBC Ur Epithelial Cells Urine Crystals Urine Bacteria Urine Mucus Ur Culture Indicated? Urine Glucose COVID-19 Source Nasopharynx SARS-CoV-2 (PCR) Negative Influenza Type A (PCR) Negative Influenza Type B (PCR) Negative RSV (PCR) Negative Add-On Test Request 12/04/22 12/04/22 12/04/22 04:50 04:50 04:50 WBC RBC Hgb Hct MCV MCH MCHC RDW Plt Count MPV Immature Gran % Neutrophils % Lymphocytes % Monocytes % Eosinophils % Basophils % Nucleated RBC % Absolute Neutrophils Absolute Lymphocytes Absolute Monocytes Absolute Eosinophils Absolute Basophils PT 11.5 H INR 1.1 APTT 26.8 VBG Lactate Sodium Potassium Chloride Carbon Dioxide Anion Gap BUN Creatinine Est GFR (CKD-EPI 2020) Glucose Calcium Total Bilirubin AST ALT Alkaline Phosphatase Troponin I C-Reactive Protein Total Protein Albumin Lipase Procalcitonin 1.1 TSH Free T4 Urine Color Urine Clarity Urine pH Ur Specific [place] Urine Protein Urine Ketones Urine Blood Urine Nitrite Urine Bilirubin Urine Urobilinogen Ur Leukocyte Esterase Urine RBC Urine WBC Ur Epithelial Cells Urine Crystals Urine Bacteria Urine Mucus Ur Culture Indicated? Urine Glucose COVID-19 Source SARS-CoV-2 (PCR) Influenza Type A (PCR) Influenza Type B (PCR) RSV (PCR) Add-On Test Request DONE 12/04/22 12/04/22 12/04/22 04:50 05:25 05:31 WBC RBC Hgb Hct MCV MCH MCHC RDW Plt Count MPV Immature Gran % Neutrophils % Lymphocytes % Monocytes % Eosinophils % Basophils % Nucleated RBC % Absolute Neutrophils Absolute Lymphocytes Absolute Monocytes Absolute Eosinophils Absolute Basophils PT INR APTT VBG Lactate Sodium Potassium Chloride Carbon Dioxide Anion Gap BUN Creatinine Est GFR (CKD-EPI 2020) Glucose Calcium Total Bilirubin AST ALT Alkaline Phosphatase Troponin I C-Reactive Protein 23.75 H Total Protein Albumin Lipase Procalcitonin TSH Free T4 Urine Color Yellow Cancelled Urine Clarity Cloudy Cancelled Urine pH 5.5 Cancelled Ur Specific [place] 1.025 Cancelled Urine Protein 100 H Cancelled Urine Ketones 15 H Cancelled Urine Blood Moderate H Cancelled Urine Nitrite Negative Cancelled Urine Bilirubin Negative Cancelled Urine Urobilinogen 0.2 Cancelled Ur Leukocyte Esterase Small H Cancelled Urine RBC Not Applicable Urine WBC >50 H Ur Epithelial Cells Not Applicable Urine Crystals Not Applicable Urine Bacteria Not Applicable Urine Mucus Not Applicable Ur Culture Indicated? Yes Urine Glucose Negative Cancelled COVID-19 Source SARS-CoV-2 (PCR) Influenza Type A (PCR) Influenza Type B (PCR) RSV (PCR) Add-On Test Request 12/04/22 07:58 WBC RBC Hgb Hct MCV MCH MCHC RDW Plt Count MPV Immature Gran % Neutrophils % Lymphocytes % Monocytes % Eosinophils % Basophils % Nucleated RBC % Absolute Neutrophils Absolute Lymphocytes Absolute Monocytes Absolute Eosinophils Absolute Basophils PT INR APTT VBG Lactate 0.8 Sodium Potassium Chloride Carbon Dioxide Anion Gap BUN Creatinine Est GFR (CKD-EPI 2020) Glucose Calcium Total Bilirubin AST ALT Alkaline Phosphatase Troponin I C-Reactive Protein Total Protein Albumin Lipase Procalcitonin TSH Free T4 Urine Color Urine Clarity Urine pH Ur Specific [place] Urine Protein Urine Ketones Urine Blood Urine Nitrite Urine Bilirubin Urine Urobilinogen Ur Leukocyte Esterase Urine RBC Urine WBC Ur Epithelial Cells Urine Crystals Urine Bacteria Urine Mucus Ur Culture Indicated? Urine Glucose COVID-19 Source SARS-CoV-2 (PCR) Influenza Type A (PCR) Influenza Type B (PCR) RSV (PCR) Add-On Test Request
[2022-12-04] MEDS: Lactated Ringers 1,000 ML 30 ML IV (12:34)
[2022-12-04] MEDS: Lidocaine 2% Jelly 6 ML SYR (12:57)
[2022-12-04] MEDS: Omnipaque 300 MG/ML 50 ML BTL (13:00)
--- NOTE | 2022-12-04 13:04 | DI.RAD_ITS ---
Exam(s) XR RETROGRADE IN OR EXAM: XR RETROGRADE IN OR CLINICAL HISTORY: LEFT URETERAL STONE TECHNIQUE: 2D and realtime digital imaging was performed. CONTRAST MATERIAL: Refer to procedure report. COMPARISON: No exams were available for comparison FINDINGS: Fluoroscopy was provided for Dr. Millard during the performance of a retrograde evaluation of the rossi l collecting system. Please refer to the procedure report for complete details. Ka,r=10.4 mGy IMPRESSION: RADIATION DOSE DELIVERED:
--- NOTE | 2022-12-04 13:06 | ROE_ITS ---
Date of service: 12/04/22 Time of Service: 13:06 Operative Note Operative Note DATE OF PROCEDURE: 12/04/22 PRE-OP DIAGNOSIS: Left hydronephrosis PROCEDURE: cystoscopy, left retrograde pyelogram, insert left ureteral stent SURGEON: Shane Millard ANESTHESIA TYPE: General:No Airway Refer to Anesthesia Record ESTIMATED BLOOD LOSS: 0 PATHOLOGY: none sent COMPLICATIONS: None Implants: 7 Tanzanian by 22 to 30 cm left ureteral stent 16 Tanzanian frausto with 10 cc sterilke water in balloon Indications: This is a 67-year-old woman who presented to the emergency department this [facility] with mental status changes. She was not febrile upon presentation, but she did have an elevated white blood count and evidence of a urinary tract infection. She had no flank pain but did have some nausea. A CT scan demonstrated a large stone at the left ureteropelvic junction with hydronephrosis. We suspected that she may have an infected left kidney, so she is agreeable to placement of a ureteral stent Findings: purulent fluid drained from left kidney Procedure Description: The patient was brought to the operating room on 12/04/2022. After successful induction of general anesthesia without intubation, she was placed in the dorsal lithotomy position. Her genitalia was prepped and draped. A 22 Tanzanian rigid cystoscope was passed through the urethra into the bladder. The bladder was inspected with a 30 degree lens. The left ureteral orifice was visualized. The orifice was cannulated with a 5 Tanzanian access catheter. Retrograde pyelogram was obtained by injecting Omnipaque through the access catheter under fluoroscopic guidance. We were able to outline the left UPJ stone in the hydronephrotic left kidney. Glidewire was then passed through the access catheter and advanced up the ureter. Once the wire passed the UPJ stone, purulent urine could be seen coming down from the left ureter. The access catheter was removed leaving the wire in place. A 7 Tanzanian variable length stent was advanced over the wire. The proximal end of the stent was curled in the renal pelvis and the distal end was curled within the bladder. The positioning of the stent was confirmed both fluoroscopically and cystoscopically. The scope was then removed. A 16 [place] Frausto catheter was passed through the urethra into the bladder. The catheter balloon was inflated with 10 cc of sterile water and the catheter was hooked to gravity drainage.
--- NOTE | 2022-12-04 13:56 | W.ANESPOSTOP ---
Postoperative Evaluation Date, Time and Location Date Performed: 12/04/22 Time Performed: 13:56 Patient Location: PACU Vital Signs Most Recent Imported Vital Signs: Most Recent Vital Signs Temp Pulse Resp BP Pulse Ox 36.6 C 92 H 21 155/87 H 94 12/04/22 13:40 12/04/22 13:40 12/04/22 13:40 12/04/22 13:40 12/04/22 13:40 Pain Score Most Recent Pain Score: Most Recent Pain Score Pain Level 0 12/04/22 13:40 Assessment Mental Status: Awake (Alert & Oriented to Patient Baseline) Airway and Respiratory Function: Patent airway with normal (patient baseline) respiratory exam Cardiovascular Function: Hemodynamically Stable Hydration Status: Adequately Hydrated Nausea & Vomiting: No Nausea or Vomiting Pain: Pt. Denies Any Pain Peripheral Nerve Block: Patient did not receive a nerve block Postoperative Comments:: still shivering temp36.7
[2022-12-04] MEDS: Ondansetron 4 MG/2 ML VIAL IVP (14:27)
[2022-12-04] MEDS: ACETAMINOPHEN 1,000 MG/100 ML BTL 400 MG IVPB ×2 (14:45→22:43)
[2022-12-04] MEDS: GENTAMICIN 120 MG in Normal Saline 100 ML 200 MG IVPB (15:54)
[2022-12-04] MEDS: Normal Saline 500 ML 30 ML IV (15:54)
[2022-12-04] MEDS: Lactated Ringers 500 ML IV (18:20)
[2022-12-04] MEDS: Insulin Aspart 300 UNITS/3 ML PEN SC ×2 (18:31→21:02)
[2022-12-04] MEDS: Lactated Ringers 1,000 ML 150 ML IV (19:35)
[2022-12-04] MEDS: Normal Saline 1,000 ML 80 ML IV (21:58)
--- NOTE | 2022-12-04 23:34 | NUR.NOTE ---
Nursing Note: Temperature remains 39.4 45 min. after IV APAP 1000mg. Bear Hugger cooling pad applied per charge nurse at this time. Will continue to monitor until temperature is stable
[2022-12-05] VITALS (12 sets, daily range): BP systolic 117–155; BP diastolic 55–77; PULSE 73–82; RESP 16–23; TEMP 37.1–38.7; O2SAT 92–98
[2022-12-05] MEDS: CEFEPIME 2 GM in Normal Saline 100 ML IVPB ×2 (05:32→17:41)
[2022-12-05] MEDS: Acetaminophen 325 MG TAB PO ×3 (05:34→17:17)
[2022-12-05 07:22] LABS: Abs Immature Grans 0.02 10^3/uL (0.0-0.06); Absolute Basophil Count 0.02 10^3/uL (0.0-0.2); Absolute Eosinophil Count 0.04 10^3/uL (0.0-0.7); Absolute Monocyte Count 0.55 10^3/uL (0.1-0.8); Basophils % 0.3; Eosinophils % 0.6; HGB 8.7 g/dL (11.2-15.7); Immature Grans % 0.3; Lymphocytes % 7.5; MCH 31.3 pg (27.0-33.0); MCHC 32.2 % (32.0-36.0); MCV 97 fL (80-95); MPV 10.1 fL (8.0-11.0); Monocytes % 8.3; Platelet Count 143 10^3/uL (130-400); RBC 2.78 10^6/uL (3.93-5.22); RDW-SD 46.2 fL; WBC 6.63 10^3/uL (4.4-10.8)
[2022-12-05 07:37] LABS: Anion Gap 10.1 mmol/L (3-11); BUN 22 mg/dL (7-18); CO2 23.9 mmol/L (21.0-32.0); CREATININE 1.1 mg/dL (0.55-1.02); Calcium 8.9 mg/dL (8.5-10.1); Chloride 103 mmol/L (98-107); Estimated GFR 55.76 (mL/min/1.73m2); Glucose 214 mg/dL (74-106); Magnesium 1.7 mg/dL (1.8-2.4); Potassium 3.9 mmol/L (3.5-5.1); Sodium 137 mmol/L (136-145)
--- NOTE | 2022-12-05 07:42 | W.PM.PROGNOT ---
Date of Service Date of service: 12/05/22 Time of Service: 07:43 Assessment and Plan Assessment and plan (1) Kidney stone: Status: Acute (2) Acute UTI: Status: Acute Assessment and plan: The patient presented with urosepsis. Her left kidney has been drained and she is on broad-spectrum antibiotics. For now, in addition to supportive care, we simply need to await the results of her culture and sensitivity and adjust her antibiotics. Ultimately, as she completes her full course of antibiotics, we will need to do ureteroscopy with holmium laser lithotripsy of her stone. With her positive blood culture, I expect that she will be on antibiotics for at least a week if not two. This type of surgical procedure can be done as an outpatient after the patient transitions to oral antibiotics. Subjective Subjective Interval history since last seen: The patient has remained febrile overnight, but her maximum temperatures have been trending down. She has no flank pain. She is hoping to have her catheter removed today. She feels like she would be able to get out of bed to the commode or to the restroom. She had no vomiting since her time in the recovery room yesterday. Exam Narrative Exam Narrative: She appears comfortable Her vital signs are documented elsewhere. Her blood pressure and heart rate remain stable She is awake and alert Her abdomen is soft with no guarding or rebound tenderness Her initial blood culture from the ER is growing gram-negative rods Objective Last Vital Signs Temp 37.6 C H 12/05/22 07:33 Pulse 73 12/05/22 07:33 Resp 23 12/05/22 07:33 BP 117/65 12/05/22 07:33 Pulse Ox 93 12/05/22 07:33 Laboratory Results - last 24 hr 12/04/22 12/04/22 12/04/22 04:50 04:50 04:50 WBC RBC Hgb Hct MCV MCH MCHC RDW Plt Count MPV Immature Gran % Neutrophils % Lymphocytes % Monocytes % Eosinophils % Basophils % Nucleated RBC % Absolute Neutrophils Absolute Lymphocytes Absolute Monocytes Absolute Eosinophils Absolute Basophils VBG Lactate C-Reactive Protein 23.75 H Procalcitonin 1.1 Add-On Test Request DONE 12/04/22 12/05/22 07:58 06:50 WBC 6.63 RBC 2.78 L Hgb 8.7 L Hct 27.0 L MCV 97 H MCH 31.3 MCHC 32.2 RDW 13.0 Plt Count 143 MPV 10.1 Immature Gran % 0.3 Neutrophils % 83.0 Lymphocytes % 7.5 Monocytes % 8.3 Eosinophils % 0.6 Basophils % 0.3 Nucleated RBC % 0.0 Absolute Neutrophils 5.50 Absolute Lymphocytes 0.50 L Absolute Monocytes 0.55 Absolute Eosinophils 0.04 Absolute Basophils 0.02 VBG Lactate 0.8 C-Reactive Protein Procalcitonin Add-On Test Request Time Spent with Patient Time Spent with Patient: <25 minutes Time was spent: preparing to see the patient(eg.review tests), obtaining and/or reviewing separately otained hiistory and counseling the patient
[2022-12-05 07:57] LABS: C-Reactive Protein > 25.00 mg/dL (0.0-0.3)
[2022-12-05 08:17] LABS: Iron 10 ug/dL (50-170); Total Iron Binding Capacity 238 ug/dL (250-450); Transferrin Sat 4 % (15-50)
--- NOTE | 2022-12-05 08:40 | INITIAL_ITS ---
- If Service Date Differs Date of service: 12/05/22 Time of Service: 08:40 Care Management Initial Assess REASON FOR HOSPITALIZATION:: Sepsis, UTI, Obstructive nephropathy, encephalopathy PAST MEDICAL HISTORY/PAST SURGICAL HISTORY:: Quit smoking 03/05/22. Medical History . Left cervical radiculopathy. Pain clinic at the hospital. 03/25- stable. Lumbosacral spondylosis without myelopathy. Pain clinic injections didn't work. 03/25 stable. Nephrocalcinosis. Trigger finger, left middle finger. s/p left middle finger trigger release DOS: 10/26/20. Surgical History . Appendectomy (02/09/79). Biopsy of breast. Cholecystectomy (02/09/79). Dilation and curettage. Endometrial Ablation (02/10/08). History of appendectomy. History of bilateral ligation of fallopian tubes. History of umbilical hernia repair. Ligation of fallopian tube. Repair of umbilical hernia (02/09/79). S/P carpal tunnel release. both. S/P cataract surgery. both. S/P shoulder hemiarthroplasty. Status post breast biopsy. Status post cholecystectomy. Status post dilation and curettage. Status post endometrial ablation. Status post tonsillectomy. Tonsillectomy (02/09/1965) PREVIOUS FUNCTIONAL STATUS/SOCIAL/FAMILY SUPPORTS:: Resides in [place] with , Arvind. She is independent at baseline though she states having a notabl e functional decline since having COVID last fall. CURRENT FUNCTIONAL STATUS:: Angela continues to be closely monitored. She continues to have fevers, awaiting culture results to inform antibiotic needs. She is hoping to have catheter removed so she can get up independently to the bathroom. Has patient been provided with info about the portal/API?: No Did the patient sign up for the portal?: No CODE STATUS:: Full Code INSURANCE COVERAGE / FINANCIAL ISSUES:: HANG/ELIANE MCR: XAVIER Gaffney CURRENT HOME/COMMUNITY SERVICES/EQUIPMENT:: [employer] PRIMARY CARE PHYSICIAN:: Alysha Borges POTENTIAL DISCHARGE NEEDS:: Follow up appointments. Urologist consult: The patient presented with urosepsis. Her left kidney has been drained and she is on broad-spectrum antibiotics. For now, in addition to supportive care, we simply need to await the results of her culture and sensitivity and adjust her antibiotics. Ultimately, as she completes her full course of antibiotics, we will need to do ureteroscopy with holmium laser lithotripsy of her stone. With her positive blood culture, I expect that she will be on antibiotics for at least a week if not two. This type of surgical procedure can be done as an outpatient after the patient transitions to oral antibiotics. PATIENT/FAMILY EDUCATION NEEDS:: Review discharge instructions, discuss Ask Me Three. ANTICIPATED BARRIERS TO DISCHARGE:: None identified. TRANSPORTATION:: Via private vehicle with family. PLAN:: Angela will return home when ready per MD. She will follow up with her PCP, urology, and plan of care as prescribed, and transport via private vehicle with her . CM continues to follow.
[2022-12-05 08:47] LABS: Ferritin 229 ng/mL (8-252); Vitamin B12 342 pg/mL (193-986)
[2022-12-05 08:48] LABS: Folate > 20.0 ng/mL (8.6-20.0)
[2022-12-05] MEDS: Insulin Aspart 300 UNITS/3 ML PEN SC ×4 (09:09→20:27)
[2022-12-05] MEDS: Normal Saline 1,000 ML 80 ML IV (09:11)
[2022-12-05] MEDS: Pantoprazole 40 MG VIAL IVP (09:39)
[2022-12-05] MEDS: Normal Saline Flush 10 ML SYR IVP ×3 (09:39→17:16)
--- NOTE | 2022-12-05 12:17 | PGE_ITS ---
Date of Service Date of service: 12/05/22 Time of Service: 12:17 Assessment and Plan Assessment and plan (1) Kidney stone: Status: Acute Assessment and plan: stent placed by DR Millard awaiting final culture reports (2) Acute UTI: Status: Acute Assessment and plan: See above Obstructing stone - stent placed - abx given - gentamycin x [address] Millard Poor urine output - 500 ml LR bolus given - frausto in place (3) Essential hypertension: Status: Chronic Assessment and plan: Stable; monitor Continue home meds (4) Hyperlipidemia: Status: Chronic Assessment and plan: continue home meds (5) Obesity: Status: Chronic Assessment and plan: Heart healthy/Reduced carb diet Encourage diet /exercise when discharged to home (6) Type II diabetes mellitus: Status: Chronic Assessment and plan: SS Insulin - hold oral med FSBS AC HS Qualifiers: Diabetes mellitus complication status: without complication 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 supervisor insulin use: without halfway use Qualified Code(s): E11.9 - Type 2 diabetes mellitus without complications (7) DVT prophylaxis: Status: Acute Assessment and plan: Enoxaparin 40 mg daily (8) Discharge planning issues: Status: Acute Assessment and plan: Home when medically stable and agreed upon by Dr Millard do not anticipate she will need any services Discussed with Dr Mcmahon Subjective Subjective Patient reports: no new complaints, feels better, tolerating liquids well, tolerating a regular diet and afebrile; denies nausea or shortness of breath Interval history since last seen: frausto discontinued, no further nausea or vomiting. Exam Const General: cooperative, comfortable and no acute distress Nutritional Appearance: overweight Orientation: alert, awake and oriented x3 HENAK Head: normal to inspection, normocephalic and atraumatic Mouth: oral mucosae normal Chest Chest: normal inspection of the chest Resp Effort & Inspection: normal respiratory effort Cardio Rate: regular rate Rhythm: regular rhythm GI Inspection: normal to inspection Palpation: soft and nontender General: other (frausto with medium yellow urine, will be removed today) Skin General skin exam: no rashes or lesions noted Neuro General: patient alert, patient awake, patient oriented x3 and no focal motor deficits Cognition: normal cognition Speech: speech normal Gait: normal gait Motor: muscle tone normal throughout Extrem General: normal to inspection and full ROM Objective Last Vital Signs Temp 37.1 C 12/05/22 12:00 Pulse 79 12/05/22 12:00 Resp 23 12/05/22 12:00 BP 152/74 H 12/05/22 12:00 Pulse Ox 96 12/05/22 12:00 Laboratory Results - last 24 hr 12/05/22 12/05/22 12/05/22 06:50 06:50 06:50 WBC 6.63 RBC 2.78 L Hgb 8.7 L Hct 27.0 L MCV 97 H MCH 31.3 MCHC 32.2 RDW 13.0 Plt Count 143 MPV 10.1 Immature Gran % 0.3 Neutrophils % 83.0 Lymphocytes % 7.5 Monocytes % 8.3 Eosinophils % 0.6 Basophils % 0.3 Nucleated RBC % 0.0 Absolute Neutrophils 5.50 Absolute Lymphocytes 0.50 L Absolute Monocytes 0.55 Absolute Eosinophils 0.04 Absolute Basophils 0.02 Sodium 137 Potassium 3.9 Chloride 103 Carbon Dioxide 23.9 Anion Gap 10.1 BUN 22 H Creatinine 1.1 H Est GFR (CKD-EPI 2020) 55.76 Glucose 214 H Calcium 8.9 Magnesium 1.7 L Iron 10 L TIBC 238 L Transferrin % Sat 4 L Ferritin C-Reactive Protein > 25.00 H Vitamin B12 Folate Patient ABO/Rh Antibody Screen 12/05/22 12/05/22 12/05/22 06:50 08:15 Unknown WBC RBC Hgb Cancelled Hct Cancelled MCV MCH MCHC RDW Plt Count MPV Immature Gran % Neutrophils % Lymphocytes % Monocytes % Eosinophils % Basophils % Nucleated RBC % Absolute Neutrophils Absolute Lymphocytes Absolute Monocytes Absolute Eosinophils Absolute Basophils Sodium Potassium Chloride Carbon Dioxide Anion Gap BUN Creatinine Est GFR (CKD-EPI 2020) Glucose Calcium Magnesium Iron TIBC Transferrin % Sat Ferritin 229 C-Reactive Protein Vitamin B12 342 Folate > 20.0 H Patient ABO/Rh O Positive Antibody Screen NEGATIVE Time Spent with Patient Time Spent with Patient: 35-49 minutes Time was spent: preparing to see the patient(eg.review tests), ordering medications,tests, procedures, referring, communicating with other health rn coronary care unit and indepentently interpreting results
[2022-12-05 14:06] LABS: HCT 27.2 % (36.0-46.0)
--- NOTE | 2022-12-05 15:25 | CHAPLAIN ---
Angela had two visitors with her this afternoon when I visited. She was up in the recliner with a bear hugger heating blanket on her. Angela's daughter, Liat, owns the [employer] in [facility] and is bringing Angela some food from there. Angela hasn't liked the food here, she said. I explained my role and offered support.
[2022-12-06] VITALS (8 sets, daily range): BP systolic 146–165; BP diastolic 64–72; PULSE 73–88; RESP 12–20; TEMP 37.4–38.3; O2SAT 92–96
[2022-12-06] MEDS: CEFEPIME 2 GM in Normal Saline 100 ML IVPB (05:50)
[2022-12-06] MEDS: Insulin Aspart 300 UNITS/3 ML PEN SC ×4 (08:29→21:45)
[2022-12-06] MEDS: Enoxaparin 40 MG/0.4 ML SYR SC (08:32)
[2022-12-06] MEDS: Normal Saline Flush 10 ML SYR IVP ×5 (08:34→16:54)
[2022-12-06] MEDS: Pantoprazole 40 MG VIAL IVP (08:59)
--- NOTE | 2022-12-06 09:31 | PDOC.CMPRO ---
- If Service Date Differs Date of service: 12/06/22 Time of Service: 09:31 Care Management Progress Note S/O: Angela remains inpatient and febrile at this time; no change to overall plan. CM continues to follow. A: 67 year old female admitted to [facility] 12/04/21 for Sepsis, UTI, Obstructive nephropathy, encephalopathy P: Angela will return home when ready per MD. She will follow up with her PCP, urology, and plan of care as prescribed, and transport via private vehicle with her . CM continues to follow.
[2022-12-06] MEDS: Milk of Magnesia 30 ML CUP PO (10:14)
[2022-12-06] MEDS: Docusate Sodium 100 MG CAP PO (10:14)
[2022-12-06] MEDS: Normal Saline 500 ML 30 ML IV (12:18)
[2022-12-06] MEDS: cefTRIAXone 2 GM/50 ML BAG IVPB (12:20)
--- NOTE | 2022-12-06 12:37 | PGE_ITS ---
Date of Service Date of service: 12/06/22 Time of Service: 12:37 Assessment and Plan Assessment and plan (1) Kidney stone: Status: Acute Assessment and plan: stent placed by DR Millard awaiting final culture reports growing ordonez sensitive e coli, downstepped to ceftriaxone voiding well since frausto removed yesterday (2) Acute UTI: Status: Acute Assessment and plan: See above, now blood cultures from 12/04 positive for ecoli also on ceftriaxone 2 gm IVPB, repeat cultures taken today has been afebrile (3) E coli bacteremia: Status: Acute Assessment and plan: ordonez sensitive e coli - same as in urine blood cultures repeated today (4) Essential hypertension: Status: Chronic Assessment and plan: Stable; monitor Continue home meds (5) Hyperlipidemia: Status: Chronic Assessment and plan: continue home meds (6) Obesity: Status: Chronic Assessment and plan: Heart healthy/Reduced carb diet Encourage diet /exercise when discharged to home (7) Type II diabetes mellitus: Status: Chronic Assessment and plan: SS Insulin - hold oral med FSBS AC HS 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: without half-way use Diabetes mellitus complication status: without complication Qualified Code(s): E11.9 - Type 2 diabetes mellitus without complications (8) DVT prophylaxis: Status: Acute Assessment and plan: Enoxaparin 40 mg daily (9) Discharge planning issues: Status: Acute Assessment and plan: Home when medically stable do not anticipate she will need any services Discussed with Dr Mcmahon Subjective Subjective Patient reports: no new complaints, feels better, tolerating liquids well, tolerating a regular diet, voiding w/o difficulty and afebrile; denies shortness of breath Exam Const General: cooperative, comfortable and no acute distress Nutritional Appearance: obese Orientation: alert, awake and oriented x3 HENMT Head: normal to inspection, normocephalic and atraumatic Mouth: oral mucosae normal Resp Effort & Inspection: normal respiratory effort Auscultation: clear to auscultation bilaterally Cardio Rate: regular rate Rhythm: regular rhythm GI Inspection: normal to inspection Palpation: soft Auscultation: normal bowel sounds Skin General skin exam: no rashes or lesions noted Neuro General: patient alert, patient awake, patient oriented x3 and no focal motor deficits Extrem General: normal to inspection and full ROM Objective Last Vital Signs Temp 37.4 C 12/06/22 07:16 Pulse 73 02/01/23 07:16 Resp 12 12/06/22 07:16 BP 146/64 H 12/06/22 07:16 Pulse Ox 95 12/06/22 07:16 Laboratory Results - last 24 hr 12/04/22 12/04/22 12/05/22 05:31 05:31 14:05 Hgb 9.0 L Hct 27.2 L Stool Description Cancelled Stool Campylobacter PCR Cancelled Stl C.difficile Tox PCR Cancelled Stool Salmonella PCR Cancelled Stool Shigella PCR Cancelled Stool Ova & Parasites Cancelled Cryptosporidium/Giardia Cancelled Shiga Toxin (PCR) Cancelled Time Spent with Patient Time Spent with Patient: 35-49 minutes Time was spent: preparing to see the patient(eg.review tests), obtaining and/or reviewing separately otained hiistory, ordering medications,tests, procedures, indepentently interpreting results and counseling the patient
[2022-12-07 03:48] VITALS: BP 151/75; PULSE 83; RESP 20; TEMP 37.6; O2SAT 95
[2022-12-07 06:16] LABS: Platelet Count 174 10^3/uL (130-400)
[2022-12-07 07:15] VITALS: BP 138/68; PULSE 75; RESP 16; TEMP 36.3; O2SAT 96
[2022-12-07] MEDS: Enoxaparin 40 MG/0.4 ML SYR SC (07:34)
[2022-12-07] MEDS: Normal Saline Flush 10 ML SYR IVP ×3 (07:35→11:59)
[2022-12-07] MEDS: Insulin Aspart 300 UNITS/3 ML PEN SC ×2 (07:35→11:59)
[2022-12-07] MEDS: Pantoprazole 40 MG VIAL IVP (07:42)
[2022-12-07] MEDS: Milk of Magnesia 30 ML CUP PO (08:46)
[2022-12-07] MEDS: Docusate Sodium 100 MG CAP PO (08:46)
[2022-12-07] MEDS: cefTRIAXone 2 GM/50 ML BAG IVPB (11:58)
--- NOTE | 2022-12-07 12:55 | PDOC.CMPRO ---
- If Service Date Differs Date of service: 12/07/22 Time of Service: 12:55 Care Management Progress Note S/O: Radha is sitting in her chair when CM met with her. She is pleasant and easy to engage in conversation. Her daughter and grandchildren are planning on staying with her for at least a week after discharge and she is really looking forward to spending time with them A: 67 year old female admitted to [facility] on 12/04/22 for Sepsis, UTI, Obstructive nephropathy, encephalopathy P: Angela will return home with not new services, when ready per MD. She will follow up with her PCP, urology, and plan of care as prescribed, and transport via private vehicle with her . CM continues to follow.
--- NOTE | 2022-12-07 13:13 | W.PM.PROGNOT ---
Date of Service Date of service: 12/07/22 Time of Service: 13:13 Assessment and Plan Assessment and plan (1) Kidney stone: Status: Acute (2) E coli bacteremia: Status: Acute Assessment and plan: Her final culture and sensitivity is now available. Her repeat blood culture to make sure it is safe to switch to oral antibiotics is still pending. Once the antibiotics can be changed to oral, the patient could go home and we would then plan an outpatient procedure to address her ureteral stone. 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 Edmondson to do endoscopy. I am not sure if our anesthesia colleagues would prefer her vocal cord polyps to be addressed before we consider a general anesthetic for her stone procedure. We will try to coordinate the order of her treatments with our ENT and anesthesia colleagues. Subjective Subjective Interval history since last seen: The patient continues to improve with less pain, nausea and vomiting. She is now able to tolerate oral intake. Exam Narrative Exam Narrative: She appears comfortable Her temperature continues to trend downwards She is awake and alert Objective Last Vital Signs Temp 36.3 C L 12/07/22 07:15 Pulse 75 12/07/22 07:15 Resp 16 12/07/22 07:15 BP 138/68 12/07/22 07:15 Pulse Ox 96 12/07/22 07:15 Laboratory Results - last 24 hr 12/07/22 05:58 Plt Count 174 Time Spent with Patient Time Spent with Patient: <25 minutes Time was spent: preparing to see the patient(eg.review tests), obtaining and/or reviewing separately otained hiistory and counseling the patient
--- NOTE | 2022-12-07 14:17 | PHACLINREV_ITS ---
Pharmacy Admission Review - Admission Clinical Review (Last Reviewed 12/04/22 @ 05:33 by Brennon García DO) E coli bacteremia (Acute) DVT prophylaxis (Acute) Discharge planning issues (Acute) Kidney stone (Acute) Acute UTI (Acute) aspirin Allergy (Verified 12/04/22 05:15) Anaphylaxsis atorvastatin Adverse Reaction (Intermediate, Verified 12/04/22 05:15) Muscle pain Resuscitation Status Full Code Height 5 ft 4 in Weight 113.597 kg - Renal Dosing Renal Dosing: BUN 22 mg/dL (7-18) H 12/05/22 06:50 Creatinine 1.1 mg/dL (0.55-1.02) H 12/05/22 06:50 Medications needing adjustments: Reviewed List of meds needing interventions: eCrCl 53 ml/min, all good - Anticoagulation Anticoagulation: Hgb Cancelled 12/05/22 Unknown Hct Cancelled 12/05/22 Unknown Plt Count 174 10^3/uL (130-400) 12/07/22 05:58 INR 1.1 (0.9-1.1) 12/04/22 04:50 Creatinine 1.1 mg/dL (0.55-1.02) H 12/05/22 06:50 DVT Prophylaxis: Reviewed Medications: Enoxaparin - Opiate Usage Evaluate Pain Scale/Pains Meds: N/A - Relevant Labs Sodium 137 mmol/L (136-145) 12/05/22 06:50 Potassium 3.9 mmol/L (3.5-5.1) 12/05/22 06:50 Chloride 103 mmol/L (98-107) 12/05/22 06:50 Magnesium 1.7 mg/dL (1.8-2.4) L 12/05/22 06:50 C-Reactive Protein > 25.00 mg/dL (0.0-0.3) H 12/05/22 06:50 Electrolytes, C-Reactive P, ESR: Reviewed - DM Control DM Control: Glucose 214 mg/dL (74-106) H 12/05/22 06:50 Finger Stick Blood Glucose 281 Finger Stick Blood Glucose 281 Finger Stick Blood Glucose 269 Finger Stick Blood Glucose 269 Finger Stick Blood Glucose 269 DM Control: Reviewed Insulin Dosing, Diabetic Medication: sliding scale with aspart ordered, on multipla orals at home -- will notify MD to consider restarting given elevated glucose levels - Cardiac Review Cardiac Review: Troponin I < 50 ng/L (<or=60) 12/04/22 04:50 BP, HR, EF%: Reviewed - Qtc Review QTc: Reviewed - IV to PO Switch IV Medications: Reviewed - Home Meds Home Med List reviewed: Intervened Relevent Home Meds Not ordered & why?: not ordered: albuterol, flovent, glipizide, metformin (SSI active) - Current meds Current Medication Order Review: Reviewed (Downstepped to ceftriaxone from cef epime, still waiting on speciation to make sure e. coli is not ESBL-producing)
[2022-12-07 14:30] VITALS: BP 170/70; PULSE 80; RESP 18; TEMP 37.9; O2SAT 95
[2022-12-07 14:52] VITALS: BP 140/66; TEMP 37
[2022-12-07] MEDS: Mometasone 220 MCG 14 DOSE INHALER 2 PUFF IH (14:54)
[2022-12-07] MEDS: Albuterol HFA 8 GM 60 PUFF INH IH (14:55)
--- NOTE | 2022-12-07 15:17 | DSE_ITS ---
Date of service: 12/07/22 Time of Service: 15:17 DS: Diagnosis Discharge Diagnosis (1) Kidney stone: Status: Acute (2) E coli bacteremia: Status: Acute Discharge Plan Disposition Patient Disposition: Home Condition: Improving Discharge Details Reason For Visit: Sepsis,UTI,Obstructive Nephropathy,Encephalopathy Admit Date/Time: 12/04/22 07:54 Admit Provider: Gaby Lanza Attending Provider: Gaby Lanza Primary Care Provider: Alysha Borges [facility] Hospital Course: This is a 67-year-old female with a past medical history of high cholesterol, type 2 diabetes, asthma, vocal cord polyp, who presented via EMS to the [facility] ED for dizziness, weakness, confusion, diarrhea, nausea, fever, and shortness of breath.? EMS noted a fever of 101 at home. The patient reported falling but denies hitting her head, and denied any loss of consciousness.? Patient denied chest pain, denied abdominal pain and denied blood in her stool.? No history of smoking/tobacco/drug abuse. Oxygenation was 92% on room air when EMS arrived, and she was started on 2 L via nasal cannula.?She does not use oxygen at home.??Labs in the ED included a mild white count with left shift, electrolytes stable, creatinine worse than normal at 1.3.? TSH elevated compared to normal, and free T4 is low which could be contributing to some of her fatigue, however urinalysis showed evidence of notable urinary tract infection, and CT scan of the abdomen showed an obstructed 1 cm stone, which is very concerning with UTI.? Cefepime was started.? Clinically the patient actually looked well, vital signs were stable with no evidence of tachycardia or hypotension or shock.? Dr. Millard was consulted he recommended surgical intervention.? Dr. Millard took the patient to the OR and she has been admitted to the medical floor stable for IV antibiotics. ?Her final culture and sensitivity revealed Escherichia Coli with sensitivity to Cipro, she was changed to oral antibiotics for a full 10 more days, to total 14 days of antibiotics per recommendation of Doni and TEZ secondary to her positive Eschericia coli / blood culture. She was discharged to home with a plan for an outpatient procedure to address her ureteral stone with Dr Millard.? The patient does have some vocal cord polyps and plans had been made for Dr. Edmondson to do endoscopy.? Dr Millard, Dr Edmondson and Anesthesia will try to coordinate the order of her treatments.? Her vital signs were stable, she agreed with the plan and was discharged to home stable. ? Discussed with Dr Mcmahon Home Meds and New Rx's Prescriptions: New ciprofloxacin HCl [Cipro] 500 mg tablet 500 mg PO BID Qty: 20 0RF No Action ibuprofen 600 mg tablet 600 mg PO HS PRN (Reason: pain) Qty: 30 3RF Rx Instructions: Take with food omega 3-hwe-soj-fish oil [Fish Oil] 1,200 (144-216) mg capsule 1 cap PO DAILY Centrum Silver 0.4-300-250 mg-mcg-mcg tablet 1 tab PO DAILY fluticasone propionate [Flovent HFA] 110 mcg/actuation HFA aerosol inhaler 2 puff inhalation BID Qty: 36 4RF fluticasone propionate [Flonase Allergy Relief] 50 mcg/actuation spray,suspension 2 spray intranasal DAILY 30 Days Qty: 16 12RF Rx Instructions: administer into each nostril (DME) lancets 1 EACH misc 1 ea Miscellaneous DAILY Qty: 100 Label Comments: pt. checked blood sugar three months ago Rx Instructions: DX:250.0 ONE TOUCH DELICA (DME) OneTouch Ultra Test 1 EACH strip 1 ea Miscellaneous BID Qty: 100 Label Comments: pt. used three months ago glipizide 5 mg tablet 5 mg PO BID Qty: 180 3RF albuterol sulfate [Proventil HFA] 90 mcg/actuation HFA aerosol inhaler 2 puff IH Q4H PRN (Reason: bronchospasm) Qty: 18 4RF metformin 1,000 mg tablet 1,000 mg PO BID Qty: 180 4RF Glucosamine Chondroitin 550-30-1 mg Capsule 2 cap PO DAILY acetaminophen 500 mg tablet 1,000 mg PO Q8H PRN (Reason: pain) Qty: 60 2RF Discharge Instructions Instructions: Ciprofloxacin (By mouth), Kidney Stones (DC), Urinary Tract Infection in Women (DC) Stand Alone Forms: Nursing Discharge Form Referrals: Shane Mlilard MD [ [facility] STAFF PHYSICIAN] - (Dr Maynard office will call you with an Appointment in the next 2-3 weeks for follow up regarding kidney stone. ) Alysha Borges NP [Primary Care Provider] - 12/19/22 8:20 am (1-2 weeks) Activity:: Activity as Tolerated Equipment/Supplies:: No Equipment Needed Diet:: As Tolerated Discharge Orders Discharge Orders: Discharge Order (Routine); Ordered 12/07/22 Ordered By: Mindy Espino Discharge Data Discharge Date/Time-TO BE ENTERED AT DEPARTURE: 12/07/22 16:56 DS: Summary Time Spent with Patient providing and/or coordinating discharge services: Greater than 30 minutes Status at Discharge Functional status at discharge: independent ambulation Overall status at discharge: patient is progressing back to baseline Mental Status: mental status grossly normal Speech and Movement: speech and movement normal Mood: congruent mood Affect: normal affect Exam Const General: cooperative, comfortable and no acute distress Nutritional Appearance: obese Orientation: alert, awake and oriented x3 HENMT Head: normal to inspection, normocephalic and atraumatic Mouth: oral mucosae normal Resp Effort & Inspection: normal respiratory effort Auscultation: clear to auscultation bilaterally Cardio Rate: regular rate Rhythm: regular rhythm GI Inspection: normal to inspection Palpation: soft Auscultation: normal bowel sounds Skin General skin exam: no rashes or lesions noted Neuro General: patient alert, patient awake, patient oriented x3 and no focal motor deficits Extrem General: normal to inspection and full ROM Psych Mental Status: mental status grossly normal Speech and Movement: speech and movement normal Mood: congruent mood Affect: normal affect DS: Data Vitals/I&O Vitals and I&O: Vital Signs Temperature 37 C 12/07/22 14:52 Temperature Source Tympanic 12/07/22 14:52 Pulse 80 12/07/22 14:30 Pulse Rhythm Regular 12/07/22 08:05 Pulse 81 12/04/22 08:20 Respiratory Rate 18 12/07/22 14:30 Respiratory Effort Non-Labored 12/07/22 08:05 Respiratory Depth Normal 12/07/22 08:05 Respiratory Pattern Normal 12/07/22 08:05 Blood Pressure 140/66 12/07/22 14:52 Blood Pressure Mean 68 12/04/22 08:46 Blood Pressure Position Supine 12/04/22 04:58 Pulse Oximetry 95 12/07/22 14:30 Respiratory End-tidal CO2 30 12/04/22 14:23 Oxygen Delivery Method Room Air 12/07/22 14:30 Oxygen Flow Rate 0 12/07/22 14:30 Pain Level 0 12/07/22 07:15 Comment 12/05/22 14:36 Intake & Output 12/06/22 12/07/22 12/07/22 23:59 11:59 23:59 Intake Total 226.5 / 226.5 Output Total 200 / 400 100 / 100 Balance 26.5 / -173.5 -100 / -100 Weight 113.597 kg Intake: IV 226.5 / 226.5 Output: Urine 200 / 400 100 / 100 Other: Urine Color Yellow Yellow Straw Urine Appearance Clear Clear Urine Odor Normal None Comment pt has stated that she has voided multiple times today (X5) however no documentation on it pt described urine to nurse as clearer then previously, odor free, 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 Voiding Methods Toilet Toilet Data Completed and Pending Labs on day of discharge: Labs from last 24 hours 12/07/22 05:58 Plt Count 174 Preliminary micro results at discharge 12/06/22 11:11 Blood Culture - Preliminary Blood NO GROWTH 24 HOURS 12/06/22 11:00 Blood Culture - Preliminary Blood NO GROWTH 24 HOURS 12/04/22 06:25 Blood Culture - Preliminary Blood NO GROWTH 72 HOURS 12/04/22 06:20 Blood Culture - Preliminary Blood Escherichia coli PFSH All Active Problems (Updated 12/08/22 @ 00:02 by BRENDA ADKINS) E coli bacteremia (Acute) Kidney stone (Acute) Acute UTI (Acute) Hypothyroidism (Chronic) Hoarseness (Acute) Michale's edema of vocal folds (Acute) Essential hypertension (Chronic 04/10/17) Hyperlipidemia (Chronic) Obesity (Chronic) Primary osteoarthritis of left hip (Chronic 10/25/16) Smoker (Chronic) quit 03/2022 Type II diabetes mellitus (Chronic) Allergic rhinitis (Acute) Asthma (Chronic) History of nasal polyp (Acute) Postnasal drip (Acute) Vocal cord polyp (Acute) Snoring (Acute) Medical History Left cervical radiculopathy Pain clinic at the hospital 03/25- stable Lumbosacral spondylosis without myelopathy Pain clinic injections didn't work 03/25 stable Nephrocalcinosis Trigger finger, left middle finger s/p left middle finger trigger release DOS: 10/26/20 Surgical History Appendectomy (02/09/79) Biopsy of breast Cholecystectomy (02/09/79) Dilation and curettage Endometrial Ablation (02/10/08) History of appendectomy History of bilateral ligation of fallopian tubes History of umbilical hernia repair Ligation of fallopian tube Repair of umbilical hernia (02/09/79) S/P carpal tunnel release both S/P cataract surgery both S/P shoulder hemiarthroplasty Status post breast biopsy Status post cholecystectomy Status post dilation and curettage Status post endometrial ablation Status post tonsillectomy Tonsillectomy (02/09/1965) Family History Mother Diabetes Personal history of malignant neoplasm UTERINE Heart disease Father Personal history of malignant neoplasm liver Heart disease Social History Smoking/Tobacco Use Status: Former Tobacco Use Quit Date: 03/05/22 Tobacco: How many years used: 50 Quit status: has quit before Second Hand Exposure: Yes Smoking risk assessment performed?: Yes Alcohol Intake: former Drug use: Never Substance use type: does not use Caregiver/Support person: No Household members: spouse Housing: house Number of Children: 4 number of grandchildren: 11 Communication Needs: None Do you need help understanding health information?: Rarely 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 Pets and animals: Yes Pets and animals: cat(s) Sexually active: No Do you think of yourself as: straight/heterosexual Current gender identity: female What is your relationship status?: How often do you talk on the phone with friends or family?: three or more times per week How often do you get together with friends or relatives?: three or more times per week How often do you attend restorationism or protestant services?: decline to answer Do you belong to any clubs or organized social groups?: decline to answer Panel score (0-1 are the most socially isolated patients): 2 What type of physical activity do you participate in: none Seatbelt use: always Helmet use: Yes Helmet use: always Drive intox or ride w/intox public transit bus driver: No Do you feel safe at home: Yes Do you feel safe in your relationship?: Yes Time Spent with Patient Time Spent with Patient: 45-69 minutes Time was spent: preparing to see the patient(eg.review tests), obtaining and/or reviewing separately otained hiistory, ordering medications,tests, procedures, referring, communicating with other health care attendant, indepentently interpreting results, counseling the patient and care coordination
== END 2022-12-07 16:56 | disposition home or self-care (01) | DRG 690 ==
LOC: ER 08:08 → MS 09:02
PROVIDERS: Internal Medicine; Urology; Admitting Provider Internal Medicine; Emergency Provider Student in an Organized Health Care Education/Training Program; PCP Nurse Practitioner Family; Visit Provider Internal Medicine
PROC: 0WHR8YZ Insertion of Other Device into Genitourinary Tract, Via Natural or Artificial Opening Endoscopic (ICD-10-PCS; CPT 74450; principal; 2022-12-04 12:00)
DX: N13.6 Pyonephrosis (principal); Z68.41 Body mass index [BMI] 40.0-44.9, adult; G93.40 Encephalopathy, unspecified; R78.81 Bacteremia; I10 Essential (primary) hypertension; E66.9 Obesity, unspecified; E11.9 Type 2 diabetes mellitus without complications; E78.00 Pure hypercholesterolemia, unspecified; J45.909 Unspecified asthma, uncomplicated; E03.9 Hypothyroidism, unspecified; M16.12 Unilateral primary osteoarthritis, left hip; Z87.891 Personal history of nicotine dependence; Z79.84 Long term (current) use of oral hypoglycemic drugs; W19.XXXA Unspecified fall, initial encounter; M54.12 Radiculopathy, cervical region; B96.20 Unspecified Escherichia coli [E. coli] as the cause of diseases classified elsewhere
CPT/HCPCS: 52332; 36410; 36415; 71250; 80048; 80053; 83690; 84145; 86850; 86900; 86901; 87040; 87077; 87329; 87493; 87505; 87637; 93005; 96361; 96365; 99221; 99232; 99285; J1650; 70450; 74176; 74420; 81003; 81015; 82607; 82728; 82746; 83540; 83550; 83605; 83735; 84439; 84443; 84484; 85014; 85018; 85025; 85049; 85610; 85730; 86140; 87086; 87177; 87186; 93010; 99222; 99233; 99239; J0131; J1580; J1885; J2405; Q9967

== ENCOUNTER 2022-12-21 08:08 | Day surgery (SDC) | payer MEDICARE, SELFPAY ==
[2022-12-21] VITALS (7 sets, daily range): BP systolic 126–152; BP diastolic 38–63; PULSE 60–68; RESP 7–18; TEMP 35.9–36.2; O2SAT 96–100; BMI 42.7
[2022-12-21] MEDS: Lactated Ringers 1,000 ML 80 ML IV (08:45)
--- NOTE | 2022-12-21 09:57 | W.ANESPRE ---
General Info Date of Service Date Performed: 12/21/22 Height: 5 ft 3 in Weight: 109.6 kg Body Mass Index (BMI): 42.7 Surgical Procedure: Operation Date: 12/21/22 09:55 Proposed Procedure Side Surgeon p Cystoscopy/Laser/Retrograde/Ureteroscopy/Removal of Stent/Placement of Stent Left Shane Millard MD Meds Allergies and Home Medications Allergies Allergy/AdvReac Type Severity Reaction Status Date / Time aspirin Allergy Anaphylaxsi Verified 12/21/22 08:35 s atorvastatin AdvReac Intermediate Muscle pain Verified 12/21/22 08:35 Home Medication Medication Instructions Recorded lancets 28 gauge #100 ea 02/26/13 blood sugar diagnostic (OneTouch #100 strips 01/15/17 Ultra Test strips) dzhosbec-jgv-nehlp acid 0.4 1 tab PO DAILY 08/24/20 mg-lycopene 300 mcg-lutein 250 mcg tablet (Centrum Silver) omega 3-inf-wxe-fish oil 1,200 mg 1 cap PO DAILY 08/24/20 (144 mg-216 mg) capsule (Fish Oil) acetaminophen 500 mg tablet 1,000 mg PO Q8H PRN pain #60 tabs 10/12/20 glucosamine sulf dipot 2 cap PO DAILY 10/12/20 chlr,msm,chond 550 mg-C 30 mg-rylee 1 mg capsule (Glucosamine Chondroitin) fluticasone propionate 110 2 puff inhalation BID #36 grams 03/30/22 mcg/actuation HFA aerosol inhaler (Flovent HFA) ibuprofen 600 mg tablet 600 mg PO HS PRN pain #30 tabs 04/20/22 glipizide 5 mg tablet 5 mg PO BID #180 tab-caps 06/22/22 albuterol sulfate 90 mcg/actuation 2 puff inhalation Q4H PRN 07/03/22 aerosol inhaler (Proventil HFA) bronchospasm #18 grams fluticasone propionate 50 2 spray intranasal DAILY 30 days 10/25/22 mcg/actuation nasal #16 grams spray,suspension (Flonase Allergy Relief) metformin 1,000 mg tablet 1,000 mg PO BID #180 tab-caps 11/10/22 ciprofloxacin HCl 500 mg tablet 500 mg PO BID #20 tabs 12/07/22 (Cipro) Current Visit Medications: Current Medications Generic Name Dose Route Start Last Admin Trade Name Freq PRN Reason Stop Dose Admin Cefazolin Sodium 3,000 mg/ 100 mls @ 200 mls/hr 12/21/22 06:00 Sodium Chloride IVPB 12/21/22 16:00 PREOP LORI Ringer's Solution 1,000 mls @ 80 mls/hr 12/21/22 06:00 12/21/22 08:45 IV 12/21/22 23:59 80 mls/hr INFUSION LORI Administration IV Miscellaneous Supplies 1 each 12/21/22 06:00 Iv Access IV 12/21/22 23:59 DIRECTED LORI Sodium Chloride 0 ml 12/21/22 06:00 Normal Saline Flush 10 Ml Syr IV 12/21/22 23:59 PRN PRN Sodium Chloride 0 ml 12/21/22 06:00 Normal Saline 10 Ml Vial IJ 12/21/22 23:59 DIRECTED PRN Sterile Water 0 ml 12/21/22 06:00 Water,Injection,Sterile 10 Ml Vial IJ 12/21/22 23:59 DIRECTED PRN PFSH Active Problems Active Problems: Problem Status Onset Code E coli bacteremia R78.81, B96.20 Kidney stone N20.0 Acute UTI N39.0 Hypothyroidism E03.9 Hoarseness R49.0 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 Essential hypertension 04/10/17 I10 Hyperlipidemia E78.5 Obesity E66.9 Primary osteoarthritis of left hip 10/25/16 M16.12 Smoker F17.200 Type II diabetes mellitus E11.9 Allergic rhinitis J30.9 Asthma J45.909 History of nasal polyp Z87.09 Postnasal drip R09.82 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 Snoring R06.83 Medical History Medical History Left cervical radiculopathy Pain clinic at the hospital 03/25- stable Lumbosacral spondylosis without myelopathy Pain clinic injections didn't work 03/25 stable Nephrocalcinosis Trigger finger, left middle finger s/p left middle finger trigger release DOS: 10/26/20 Medical History Comments:: was here on 12/05/22 for cystoscopy, stated when she came out of anesthesia she had 108 degree fever, it was really bad Surgical History Surgical History Appendectomy (02/09/79) Biopsy of breast Cholecystectomy (02/09/79) Dilation and curettage Endometrial Ablation (02/10/08) History of appendectomy History of bilateral ligation of fallopian tubes History of umbilical hernia repair Ligation of fallopian tube Repair of umbilical hernia (02/09/79) S/P carpal tunnel release both S/P cataract surgery both S/P shoulder hemiarthroplasty Status post breast biopsy Status post cholecystectomy Status post dilation and curettage Status post endometrial ablation Status post tonsillectomy Tonsillectomy (02/09/1965) Tobacco Smoking/Tobacco Use Status: Former Tobacco Use Passive smoking exposure: Yes Second hand exposure: Yes Alcohol Alcohol Intake: former Substance Use Substance use: Never Substance use type: does not use Vital Signs and Lab Results Vital Signs Most Recent Vital Signs in EMR: Most Recent Vital Signs Temp Pulse Resp BP Pulse Ox 36.0 C L 68 18 138/56 L 99 12/21/22 08:11 12/21/22 08:11 12/21/22 08:11 12/21/22 08:11 12/21/22 08:11 Point of Care Results Point of Care Results: Finger Stick Blood Glucose 241 12/21/22 08:19 Lab Results Blood Type / Crossmatch: Patient ABO/Rh O Positive 12/05/22 Antibody Screen NEGATIVE 12/05/22 Complete Blood Count: White Blood Count 6.63 10^3/uL (4.4-10.8) 12/05/22 06:50 Red Blood Count 2.78 10^6/uL (3.93-5.22) L 12/05/22 06:50 Hemoglobin 9.0 g/dL (11.2-15.7) L 12/05/22 14:05 Hematocrit 27.2 % (36.0-46.0) L 12/05/22 14:05 Platelet Count 174 10^3/uL (130-400) 12/07/22 05:58 Venous Blood Lactate 0.8 mmol/L (0.6-1.4) 12/04/22 07:58 Complete Metabolic Panel: Sodium 137 mmol/L (136-145) 12/05/22 06:50 Potassium 3.9 mmol/L (3.5-5.1) 12/05/22 06:50 Chloride 103 mmol/L (98-107) 12/05/22 06:50 Carbon Dioxide 23.9 mmol/L (21.0-32.0) 12/05/22 06:50 BUN 22 mg/dL (7-18) H 12/05/22 06:50 Creatinine 1.1 mg/dL (0.55-1.02) H 12/05/22 06:50 Est GFR (CKD-EPI 2020) 55.76 (mL/min/1.73m2) 12/05/22 06:50 Magnesium 1.7 mg/dL (1.8-2.4) L 12/05/22 06:50 Calcium 8.9 mg/dL (8.5-10.1) 12/05/22 06:50 Albumin 3.5 g/dL (3.4-5.0) 12/04/22 04:50 Glucose 214 mg/dL (74-106) H 12/05/22 06:50 Hemoglobin A1c 8.2 % (<5.7) H 11/28/22 08:58 C-Reactive Protein > 25.00 mg/dL (0.0-0.3) H 12/05/22 06:50 Liver Function Panel: Alanine Aminotransferase (ALT/SGPT) 22 U/L (14-59) 12/04/22 04:50 Aspartate Amino Transf (AST/SGOT) 10 U/L (15-37) L 12/04/22 04:50 Coagulation Panel: INR International Normalized Ratio 1.1 (0.9-1.1) 12/04/22 04:50 Prothrombin Time 11.5 sec (9.3-11.0) H 12/04/22 04:50 Activated Partial Thromboplast Time 26.8 sec (21.0-27.5) 12/04/22 04:50 Cardiac Panel: Troponin I < 50 ng/L (<or=60) 12/04/22 Arterial Blood Gas: No Data to Display Venous Blood Gas: No Data to Display Pancreas Panel: Lipase 10 U/L (73-393) 12/04/22 04:50 Thyroid Panel: Thyroid Stimulating Hormone (TSH) 9.25 uIU/mL (0.36-3.74) H 12/04/22 04:50 Infectious Disease: Coronavirus (COVID-19)(PCR) Negative (Negative) 12/04/22 04:50 Coronavirus 2019 Source Nasopharynx 12/04/22 04:50 Influenza Virus Type A (PCR) Negative (Negative) 12/04/22 04:50 Influenza Virus Type B (PCR) Negative (Negative) 12/04/22 04:50 Respiratory Syncytial Virus (PCR) Negative (Negative) 12/04/22 04:50 Blood Cultures: No Data to Display Toxicology Panel: No Data to Display Imaging and Studies Imaging and Studies Study information below may be from another EMR and interpreted by another provider. Please see original notes in EMR for more complete details. EKG Summary: 12/04/2022: Exam: Resting ECG Reason for Exam: dizziness Patient Location: E HR:86 bpm ECG Measurements Heart Rate 86 AXIS RI 187 P 53 QRSd 95 QRS -6 QT 352 T35 QTc 421 Conclusion Sinus rhythm...normal P axis, V-rate 60- 99 Physician: no stemi Anesthesia Assessment and Plan Anesthesia History Personal History: PONV and Other Family History: No Family History of Anesthesia Complications Exercise Tolerance Exercise Tolerance: Metabolic Equivalents>4 Cardiac & Pulmonary Exam Cardiac Exam: Normal S1/S2 Heart Sounds Pulmonary Exam: Clear Bilateral Breath Sounds Implantable Cardiac Device Does patient have a Pacemaker or an ICD?: No Airway Exam Known Difficult Airway: No Mallampati Class: 2 Mouth Opening: Normal (> 3cm) Thyromental Distance: Greater than 3 cm Neck Range of Motion: Full ROM Neck Circumference: Thick Teeth Condition: Normal Dentition (Several teeth missing) ASA Classification ASA Score: ASA 3 Emergency Case?: No NPO Status NPO Status: NPO Clears >2 hours, Solids >8 hours Anesthesia Plan Resuscitation Status: Full Code Anesthesia Technique: General Anesthesia Airway Planned: LMA Monitors Used: Standard Monitors
--- NOTE | 2022-12-21 10:19 | HPE_ITS ---
Date of service: 12/21/22 Time of Service: 10:20 Assessment and Plan Assessment and plan (1) Kidney stone: Status: Acute Assessment and plan: We will plan to do cystoscopy, stent removal, left ureteroscopy with holmium laser lithotripsy of her known stone. I would expect that this will need a staged procedure with a return trip to the operating room to remove any residual fragments in another week or 2. She will have a combined procedure with Dr. Edmondson at that time. History of Present Illness History of Present Illness Chief Complaint: Left ureteral stone Narrative: This is a 67-year-old woman who was seen previously when she was hospitalized with sepsis. She had a urinary tract infection and an obstructing left ureteral stone. We treated her with a stent placement and antibiotics. Now that her infection has cleared, she presents for ureteroscopy with more definitive stone treatment. Review of Systems Narrative: No fevers or chills Vocal cord polyps with hoarseness. No vision change Hypothyroidism. Type II Diabetes Chronic SOB. No cough or hemoptysis No chest pain or palpitations No nausea, vomiting, hepatitis, ulcers, jaundice No seizures, strokes or peripheral neuropathy No bleeding disorders or anemia No gout PFSH All Active Problems E coli bacteremia (Acute) Kidney stone (Acute) Acute UTI (Acute) Hypothyroidism (Chronic) Hoarseness (Acute) Michael's edema of vocal folds (Acute) Essential hypertension (Chronic 04/10/17) Hyperlipidemia (Chronic) Obesity (Chronic) Primary osteoarthritis of left hip (Chronic 10/25/16) Smoker (Chronic) quit 03/2022 Type II diabetes mellitus (Chronic) Allergic rhinitis (Acute) Asthma (Chronic) History of nasal polyp (Acute) Postnasal drip (Acute) Vocal cord polyp (Acute) Snoring (Acute) Medical History Left cervical radiculopathy Pain clinic at the hospital 03/25- stable Lumbosacral spondylosis without myelopathy Pain clinic injections didn't work 03/25 stable Nephrocalcinosis Trigger finger, left middle finger s/p left middle finger trigger release DOS: 10/26/20 Surgical History Appendectomy (02/09/79) Biopsy of breast Cholecystectomy (02/09/79) Dilation and curettage Endometrial Ablation (02/10/08) History of appendectomy History of bilateral ligation of fallopian tubes History of umbilical hernia repair Ligation of fallopian tube Repair of umbilical hernia (02/09/79) S/P carpal tunnel release both S/P cataract surgery both S/P shoulder hemiarthroplasty Status post breast biopsy Status post cholecystectomy Status post dilation and curettage Status post endometrial ablation Status post tonsillectomy Tonsillectomy (02/09/1965) Family History Mother Diabetes Personal history of malignant neoplasm UTERINE Heart disease Father Personal history of malignant neoplasm liver Heart disease Social History Smoking/Tobacco Use Status: Former Tobacco Use Quit Date: 03/05/22 Tobacco: How many years used: 50 Quit status: has quit before Second Hand Exposure: Yes Smoking risk assessment performed?: Yes Alcohol Intake: former Drug use: Never Substance use type: does not use Caregiver/Support person: No Household members: spouse Housing: house Number of Children: 4 number of grandchildren: 11 Communication Needs: None Do you need help understanding health information?: Rarely 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 Pets and animals: Yes Pets and animals: cat(s) Sexually active: No Do you think of yourself as: straight/heterosexual Current gender identity: female What is your relationship status?: How often do you talk on the phone with friends or family?: three or more times per week How often do you get together with friends or relatives?: three or more times per week How often do you attend restorationism or anabaptist services?: decline to answer Do you belong to any clubs or organized social groups?: decline to answer Panel score (0-1 are the most socially isolated patients): 2 What type of physical activity do you participate in: none Seatbelt use: always Helmet use: Yes Helmet use: always Drive intox or ride w/intox milk delivery driver: No Do you feel safe at home: Yes Do you feel safe in your relationship?: Yes Meds Allergies and Home Medications Allergies Allergy/AdvReac Type Severity Reaction Status Date / Time aspirin Allergy Anaphylaxsi Verified 12/21/22 08:35 s atorvastatin AdvReac Intermediate Muscle pain Verified 12/21/22 08:35 Home Medications Medication Instructions Recorded Confirmed Type lancets 28 gauge #100 ea 02/26/13 12/19/22 History blood sugar diagnostic (OneTouch #100 strips 01/15/17 12/19/22 History Ultra Test strips) gbhtlybr-fua-mtyav acid 0.4 1 tab PO DAILY 08/24/20 12/21/22 History mg-lycopene 300 mcg-lutein 250 mcg tablet (Centrum Silver) omega 3-bqt-ybc-fish oil 1,200 mg 1 cap PO DAILY 08/24/20 12/21/22 History (144 mg-216 mg) capsule (Fish Oil) acetaminophen 500 mg tablet 1,000 mg PO Q8H PRN pain #60 tabs 10/12/20 12/21/22 Rx glucosamine sulf dipot 2 cap PO DAILY 10/12/20 12/21/22 History chlr,msm,chond 550 mg-C 30 mg-rylee 1 mg capsule (Glucosamine Chondroitin) fluticasone propionate 110 2 puff inhalation BID #36 grams 03/30/22 12/21/22 Rx mcg/actuation HFA aerosol inhaler (Flovent HFA) ibuprofen 600 mg tablet 600 mg PO HS PRN pain #30 tabs 04/20/22 12/21/22 Rx glipizide 5 mg tablet 5 mg PO BID #180 tab-caps 06/22/22 12/21/22 Rx albuterol sulfate 90 mcg/actuation 2 puff inhalation Q4H PRN 07/03/22 12/21/22 Rx aerosol inhaler (Proventil HFA) bronchospasm #18 grams fluticasone propionate 50 2 spray intranasal DAILY 30 days 10/25/22 12/21/22 Rx mcg/actuation nasal #16 grams spray,suspension (Flonase Allergy Relief) metformin 1,000 mg tablet 1,000 mg PO BID #180 tab-caps 11/10/22 12/21/22 Rx ciprofloxacin HCl 500 mg tablet 500 mg PO BID #20 tabs 12/07/22 12/21/22 Rx (Cipro) Exam Const General: cooperative Nutritional Appearance: obese Neck Neck: supple Resp Effort & Inspection: normal respiratory effort Auscultation: diminished lung sounds Cardio Rate: regular rate Rhythm: regular rhythm GI Palpation: soft and no masses Neuro General: patient alert, patient awake and patient oriented x3 Results Last Vital Signs Temp 36.0 C L 12/21/22 08:11 Pulse 68 12/21/22 08:11 Resp 18 12/21/22 08:11 BP 138/56 L 12/21/22 08:11 Pulse Ox 99 12/21/22 08:11 Time Spent Time spent with Patient: <40 minutes Time was spent: other
[2022-12-21] MEDS: ceFAZolin 3,000 MG in Normal Saline 100 ML 200 MG IVPB (11:07)
[2022-12-21] MEDS: Lidocaine 2% Jelly 6 ML SYR (11:15)
[2022-12-21] MEDS: Omnipaque 300 MG/ML 50 ML BTL (12:00)
--- NOTE | 2022-12-21 12:18 | DI.RAD_ITS ---
Exam(s) XR RETROGRADE IN OR EXAM: XR RETROGRADE IN OR CLINICAL HISTORY: LEFT KIDNEY STONE. TECHNIQUE: 2D digital imaging was performed. COMPARISON: No exams were available for comparison FINDINGS: Fluoroscopy was provided during urologic procedure or retrograde study and ureteral stenting performe d by the urologist Procedure report for details Fluoroscopy time 34 seconds MONICA leavitt exposure index: Cumulative dose= Ka,r 18.79mGy IMPRESSION: DATA REPOSITORY: RADIATION DOSE DELIVERED:
--- NOTE | 2022-12-21 12:21 | W.PM.DSUDISC ---
Date of service: 12/21/22 Time of Service: 12:22 Discharge Plan Disposition Condition: Stable Discharge Details Reason For Visit: ureteroscopy Attending Provider: Shane Millard Primary Care Provider: Alysha Borges Home Meds and New Rx's Prescriptions: No Action ibuprofen 600 mg tablet 600 mg PO HS PRN (Reason: pain) Qty: 30 3RF Rx Instructions: Take with food omega 5-fsp-nzo-fish oil [Fish Oil] 1,200 (144-216) mg capsule 1 cap PO DAILY Centrum Silver 0.4-300-250 mg-mcg-mcg tablet 1 tab PO DAILY fluticasone propionate [Flovent HFA] 110 mcg/actuation HFA aerosol inhaler 2 puff inhalation BID Qty: 36 4RF fluticasone propionate [Flonase Allergy Relief] 50 mcg/actuation spray,suspension 2 spray intranasal DAILY 30 Days Qty: 16 12RF Rx Instructions: administer into each nostril (DME) lancets 1 EACH misc 1 ea Miscellaneous DAILY Qty: 100 Patient Comments: pt. checked blood sugar three months ago Rx Instructions: DX:250.0 ONE TOUCH DELICA (DME) OneTouch Ultra Test 1 EACH strip 1 ea Miscellaneous BID Qty: 100 Patient Comments: pt. used three months ago glipizide 5 mg tablet 5 mg PO BID Qty: 180 3RF albuterol sulfate [Proventil HFA] 90 mcg/actuation HFA aerosol inhaler 2 puff IH Q4H PRN (Reason: bronchospasm) Qty: 18 4RF metformin 1,000 mg tablet 1,000 mg PO BID Qty: 180 4RF Glucosamine Chondroitin 550-30-1 mg Capsule 2 cap PO DAILY acetaminophen 500 mg tablet 1,000 mg PO Q8H PRN (Reason: pain) Qty: 60 2RF ciprofloxacin HCl [Cipro] 500 mg tablet 500 mg PO BID Qty: 20 0RF Discharge Instructions Additional Instructions: no need to strain urine my office will contact you to arrange next procedure which will include both urology and ENT procedure Activity:: Activity as Tolerated Shower/Bathe:: 24 hours Diet:: As Tolerated DS: Diagnosis Discharge Diagnosis (1) Kidney stone: Status: Acute
--- NOTE | 2022-12-21 12:28 | W.PM.OP ---
Date of service: 12/21/22 Time of Service: 12:28 Operative Note Operative Note DATE OF PROCEDURE: 12/21/22 PRE-OP DIAGNOSIS: Left kidney stone POST-OP DIAGNOSIS: same PROCEDURE: cystoscopy, remove left ureteral stent, left retrograde pyelogram, left ureteroscopy with holmium laser lithotripsy, extraction of stone fragments, insert left ureteral stent SURGEON: Shane Millard ANESTHESIA TYPE: General LMA/ETT Refer to Anesthesia Record ESTIMATED BLOOD LOSS: 5 PATHOLOGY: other (stones for chemical analysis) Implants: 6 Macanese by 22 to 30 cm left ureteral stent Indications: This is a 67-year-old woman who initially presented with urosepsis. She was found to have an obstructing left ureteral stone. She was treated with placement of a left ureteral stent along with antibiotics. Now that her infection has cleared, she presents for ureteroscopy with stone manipulation. Findings: Left ureteral stone bumped into left lower pole calyx Procedure Description: The patient was brought to the operating room on 12/21/2022. After successful induction of general anesthesia, she was placed in the dorsal lithotomy position. Her genitalia was prepped and draped. 2% Xylocaine jelly was instilled into her urethra. A 22 Macanese rigid cystoscope was passed through the urethra into the bladder. The bladder was inspected with a 30 degree lens. Stent could be seen protruding from the left ureteral orifice. The stent was grasped and alligator forceps and brought out to the level of the urethral meatus. A Glidewire was then advanced through the lumen of the stent and the stent was removed. A dual-lumen catheter was advanced over the wire and a retrograde pyelogram was obtained by injecting Omnipaque through one of the lumens under fluoroscopic guidance. The previous ureteral stone was now present within the lower pole calyx. A second wire was positioned. One of the wires was chosen as a working wire and the other as a safety wire. A ureteral access sheath was advanced over the working wire. The safety wire was left in place. A flexible ureteroscope was passed through the ureteral access sheath up to the kidney. The calyces were inspected and the stone was visualized in the lower pole calyx. The stone was then treated with a 272 ?m holmium laser fiber. We used a power setting of 0.8 and a rate of 8 to fragment the stone quite nicely. The stone fragments were then evacuated using a 0 tip stone basket. At the completion of the procedure, no large stone burden was identified. We removed the flexible ureteroscope. I passed a 6 Macanese variable length stent over the safety wire. The proximal end of the stent was curled in the renal pelvis and the distal end was curled in the bladder. The positioning of the stent was confirmed both fluoroscopically and cystoscopically. The patient tolerated this procedure well with no complications. She will return to the operating room in another week or 2 for a planned stent removal and repeat ureteroscopy with extraction of any residual stone fragments.
--- NOTE | 2022-12-21 14:00 | W.ANESPOSTOP ---
Postoperative Evaluation Date, Time and Location Date Performed: 12/21/22 Time Performed: 14:00 Patient Location: Day Surgery Unit Vital Signs Most Recent Imported Vital Signs: Most Recent Vital Signs Temp Pulse Resp BP Pulse Ox 36.1 C L 61 18 146/56 H 97 12/21/22 13:30 12/21/22 13:30 12/21/22 13:30 12/21/22 13:30 12/21/22 13:30 Pain Score Most Recent Pain Score: Most Recent Pain Score Pain Level 0 12/21/22 13:30 Assessment Mental Status: Awake (Alert & Oriented to Patient Baseline) Airway and Respiratory Function: Patent airway with normal (patient baseline) respiratory exam Cardiovascular Function: Hemodynamically Stable Hydration Status: Adequately Hydrated Nausea & Vomiting: No Nausea or Vomiting Pain: Pt. Denies Any Pain Peripheral Nerve Block: Patient did not receive a nerve block
[2022-12-29 15:34] LABS: Source: Left Kidney
== END 2022-12-21 14:05 | disposition home or self-care (01) ==
PROVIDERS: PCP Nurse Practitioner Family; Visit Provider Urology
PROC: (CPT 52356; principal; 2022-12-21 09:45)
DX: N20.1 Calculus of ureter (principal); E11.9 Type 2 diabetes mellitus without complications
CPT/HCPCS: 52356; 74420; 82365; J0690; J1100; J1885; J2405; J2704; Q9967

== ENCOUNTER 2023-01-08 08:13 | Day surgery (SDC) | payer MEDICARE, SELFPAY ==
[2023-01-08] VITALS (9 sets, daily range): BP systolic 134–179; BP diastolic 52–62; PULSE 66–72; RESP 16–23; TEMP 36.2–36.6; O2SAT 89–98; BMI 43.5
--- NOTE | 2023-01-08 09:51 | W.ANESPRE ---
General Info Date of Service Date Performed: 01/08/23 Height: 5 ft 3 in Weight: 111.6 kg Body Mass Index (BMI): 43.5 Surgical Procedure: Operation Date: 01/08/23 11:10 Proposed Procedure Side Surgeon p Cystoscopy/Retrograde/Possible Ureteroscopy/ Stent Removal Left Shane Millard MD s Laryngoscopy, Operative w/Excision of Tumor, Stripping of Vocal Cords Abdi Edmondson MD Meds Allergies and Home Medications Allergies Allergy/AdvReac Type Severity Reaction Status Date / Time aspirin Allergy Anaphylaxsi Verified 01/05/23 11:16 s atorvastatin AdvReac Intermediate Muscle pain Verified 01/05/23 11:16 Home Medication Medication Instructions Recorded lancets 28 gauge #100 ea 02/26/13 blood sugar diagnostic (OneTouch #100 strips 01/15/17 Ultra Test strips) xeytllal-kib-pryct acid 0.4 1 tab PO DAILY 08/24/20 mg-lycopene 300 mcg-lutein 250 mcg tablet (Centrum Silver) omega 9-jqj-mba-fish oil 1,200 mg 1 cap PO DAILY 08/24/20 (144 mg-216 mg) capsule (Fish Oil) acetaminophen 500 mg tablet 1,000 mg PO Q8H PRN pain #60 tabs 10/12/20 glucosamine sulf dipot 2 cap PO DAILY 10/12/20 chlr,msm,chond 550 mg-C 30 mg-rylee 1 mg capsule (Glucosamine Chondroitin) fluticasone propionate 110 2 puff inhalation BID #36 grams 03/30/22 mcg/actuation HFA aerosol inhaler (Flovent HFA) ibuprofen 600 mg tablet 600 mg PO HS PRN pain #30 tabs 04/20/22 glipizide 5 mg tablet 5 mg PO BID #180 tab-caps 06/22/22 albuterol sulfate 90 mcg/actuation 2 puff inhalation Q4H PRN 07/03/22 aerosol inhaler (Proventil HFA) bronchospasm #18 grams fluticasone propionate 50 2 spray intranasal DAILY 30 days 10/25/22 mcg/actuation nasal #16 grams spray,suspension (Flonase Allergy Relief) metformin 1,000 mg tablet 1,000 mg PO BID #180 tab-caps 11/10/22 ciprofloxacin HCl 500 mg tablet 500 mg PO BID #20 tabs 12/07/22 (Cipro) Current Visit Medications: Current Medications Generic Name Dose Route Start Last Admin Trade Name Freq PRN Reason Stop Dose Admin Ringer's Solution 1,000 mls @ 80 mls/hr 01/08/23 06:00 IV 02/04/23 23:59 INFUSION LORI Cefazolin Sodium 3,000 mg/ 100 mls @ 200 mls/hr 01/08/23 06:00 Sodium Chloride IVPB 01/08/23 23:59 PREOP LORI IV Miscellaneous Supplies 1 each 01/08/23 06:00 Iv Access IV 02/04/23 23:59 DIRECTED LORI Sodium Chloride 0 ml 01/08/23 06:00 Normal Saline Flush 10 Ml Syr IV 02/04/23 23:59 PRN PRN Sodium Chloride 0 ml 01/08/23 06:00 Normal Saline 10 Ml Vial IJ 02/04/23 23:59 DIRECTED PRN Sterile Water 0 ml 01/08/23 06:00 Water,Injection,Sterile 10 Ml Vial IJ 02/04/23 23:59 DIRECTED PRN PFSH Active Problems Active Problems: Problem Status Onset Code E coli bacteremia R78.81, B96.20 Kidney stone N20.0 Acute UTI N39.0 Hypothyroidism E03.9 Hoarseness R49.0 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 Essential hypertension 04/10/17 I10 Hyperlipidemia E78.5 Obesity E66.9 Primary osteoarthritis of left hip 10/25/16 M16.12 Smoker F17.200 Type II diabetes mellitus E11.9 Allergic rhinitis J30.9 Asthma J45.909 History of nasal polyp Z87.09 Postnasal drip R09.82 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 Snoring R06.83 Medical History Medical History Left cervical radiculopathy [facility] 03/25- stable Lumbosacral spondylosis without myelopathy Pain clinic injections didn't work 03/25 stable Nephrocalcinosis Trigger finger, left middle finger s/p left middle finger trigger release DOS: 10/26/20 Medical History Comments:: was here on 12/05/22 for cystoscopy, stated when she came out of anesthesia she had 108 degree fever, it was really bad Surgical History Surgical History Appendectomy (02/09/79) Biopsy of breast Cholecystectomy (02/09/79) Dilation and curettage Endometrial Ablation (02/10/08) History of appendectomy History of bilateral ligation of fallopian tubes History of umbilical hernia repair Ligation of fallopian tube Repair of umbilical hernia (02/09/79) S/P carpal tunnel release both S/P cataract surgery both S/P shoulder hemiarthroplasty Status post breast biopsy Status post cholecystectomy Status post dilation and curettage Status post endometrial ablation Status post tonsillectomy Tonsillectomy (02/09/1965) Tobacco Smoking/Tobacco Use Status: Former Tobacco Use Passive smoking exposure: Yes Second hand exposure: Yes Alcohol Alcohol Intake: former Substance Use Substance use: Never Substance use type: does not use Vital Signs and Lab Results Vital Signs Most Recent Vital Signs in EMR: Most Recent Vital Signs Temp Pulse Resp BP Pulse Ox 36.6 C 66 20 134/58 L 98 01/08/23 09:07 01/08/23 09:07 01/08/23 09:07 01/08/23 09:07 01/08/23 09:07 Lab Results Blood Type / Crossmatch: No Data to Display Complete Blood Count: No Data to Display Complete Metabolic Panel: No Data to Display Liver Function Panel: No Data to Display Coagulation Panel: No Data to Display Cardiac Panel: No Data to Display Arterial Blood Gas: No Data to Display Venous Blood Gas: No Data to Display Pancreas Panel: No Data to Display Thyroid Panel: No Data to Display Infectious Disease: No Data to Display Blood Cultures: No Data to Display Toxicology Panel: No Data to Display Imaging and Studies Imaging and Studies Study information below may be from another EMR and interpreted by another provider. Please see original notes in EMR for more complete details. EKG Summary: 12/04/2022: Exam: Resting ECG Reason for Exam: dizziness Patient Location: E HR:86 bpm ECG Measurements Heart Rate 86 AXIS AR 187 P 53 QRSd 95 QRS -6 QT 352 T35 QTc 421 Conclusion Sinus rhythm...normal P axis, V-rate 60- 99 Physician: no stemi Anesthesia Assessment and Plan Anesthesia History Personal History: PONV and Other Family History: No Family History of Anesthesia Complications Exercise Tolerance Exercise Tolerance: Metabolic Equivalents>4 Cardiac & Pulmonary Exam Cardiac Exam: Normal S1/S2 Heart Sounds Pulmonary Exam: Clear Bilateral Breath Sounds Implantable Cardiac Device Does patient have a Pacemaker or an ICD?: No Airway Exam Known Difficult Airway: No Mallampati Class: 2 Mouth Opening: Normal (> 3cm) Thyromental Distance: Greater than 3 cm Neck Range of Motion: Full ROM Neck Circumference: Thick Teeth Condition: Normal Dentition (Several teeth missing) ASA Classification ASA Score: ASA 3 Emergency Case?: No NPO Status NPO Status: NPO Clears >2 hours, Solids >8 hours Anesthesia Plan Resuscitation Status: Full Code Anesthesia Technique: General Anesthesia Airway Planned: Endotracheal Tube Monitors Used: Standard Monitors
[2023-01-08] MEDS: Lactated Ringers 1,000 ML 80 ML IV (09:55)
--- NOTE | 2023-01-08 10:00 | DI.RAD_ITS ---
Exam(s) XR RETROGRADE IN OR EXAM: XR RETROGRADE IN OR CLINICAL HISTORY: Left kidney stone. TECHNIQUE: Fluoroscopy was provided for the referring physician for guidance with performing retrogr kamila procedure. COMPARISON: XR RETROGRADE IN OR from 12/21/2022 FINDINGS: Please see procedure note for details. Fluoro time: 18.3 seconds RADIATION DOSE DELIVERED: alma Salcido=11.77 mGy
--- NOTE | 2023-01-08 10:05 | W.PM.HP.N ---
Date of service: 01/08/23 Time of Service: 10:05 Assessment and Plan Assessment and plan (1) Kidney stone: Status: Acute Assessment and plan: We will perform cystoscopy and stent removal. I will then do a retrograde pyelogram and decide if we should repeat flexible ureteroscopy to ensure all her stone fragments have been removed. History of Present Illness History of Present Illness Chief Complaint: Left ureteral stone Narrative: This is a 67-year-old woman who initially presented with E. coli sepsis. She had an obstructing left ureteral stone. She was treated with stent placement along with culture specific antibiotics. Once her infection cleared, we performed ureteroscopy with holmium laser lithotripsy of her stone. We were not certain that all stone fragments were removed. We replaced her ureteral stent and arranged for a return to the operating room for cystoscopy, stent removal, retrograde pyelogram and possible repeat ureteroscopy. 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 Edmondson under the same anesthetic. Review of Systems Narrative: No fevers or chills Allergic rhinitis, hoarseness Hx diabetes and hypothyroidism Sleep apnea. No cough or hemoptysis No chest pain or palpitations No nausea, vomiting, hepatitis, ulcers, jaundice No seizures, strokes or peripheral neuropathy No bleeding disorders or anemia No gout PFSH All Active Problems E coli bacteremia (Acute) Kidney stone (Acute) Acute UTI (Acute) Hypothyroidism (Chronic) Hoarseness (Acute) Michael's edema of vocal folds (Acute) Essential hypertension (Chronic 04/10/17) Hyperlipidemia (Chronic) Obesity (Chronic) Primary osteoarthritis of left hip (Chronic 10/25/16) Smoker (Chronic) quit 03/2022 Type II diabetes mellitus (Chronic) Allergic rhinitis (Acute) Asthma (Chronic) History of nasal polyp (Acute) Postnasal drip (Acute) Vocal cord polyp (Acute) Snoring (Acute) Medical History Left cervical radiculopathy Pain clinic at the [facility] 03/25- stable Lumbosacral spondylosis without myelopathy Pain clinic injections didn't work 03/25 stable Nephrocalcinosis Trigger finger, left middle finger s/p left middle finger trigger release DOS: 12/22/20 Surgical History Appendectomy (02/09/79) Biopsy of breast Cholecystectomy (02/09/79) Dilation and curettage Endometrial Ablation (02/10/08) History of appendectomy History of bilateral ligation of fallopian tubes History of umbilical hernia repair Ligation of fallopian tube Repair of umbilical hernia (02/09/79) S/P carpal tunnel release both S/P cataract surgery both S/P shoulder hemiarthroplasty Status post breast biopsy Status post cholecystectomy Status post dilation and curettage Status post endometrial ablation Status post tonsillectomy Tonsillectomy (02/09/1965) Family History Mother Diabetes Personal history of malignant neoplasm UTERINE Heart disease Father Personal history of malignant neoplasm liver Heart disease Social History Smoking/Tobacco Use Status: Former Tobacco Use Quit Date: 03/05/22 Tobacco: How many years used: 50 Quit status: has quit before Second Hand Exposure: Yes Smoking risk assessment performed?: Yes Alcohol Intake: former Drug use: Never Substance use type: does not use Caregiver/Support person: No Household members: spouse Housing: house Number of Children: 4 number of grandchildren: 11 Communication Needs: None Do you need help understanding health information?: Rarely 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 Pets and animals: Yes Pets and animals: cat(s) Sexually active: No Do you think of yourself as: straight/heterosexual Current gender identity: female What is your relationship status?: How often do you talk on the phone with friends or family?: three or more times per week How often do you get together with friends or relatives?: three or more times per week How often do you attend sikhism or scientologist services?: decline to answer Do you belong to any clubs or organized social groups?: decline to answer Panel score (0-1 are the most socially isolated patients): 2 What type of physical activity do you participate in: none Seatbelt use: always Helmet use: Yes Helmet use: always Drive intox or ride w/intox truck driver: No Do you feel safe at home: Yes Do you feel safe in your relationship?: Yes Meds Allergies and Home Medications Allergies Allergy/AdvReac Type Severity Reaction Status Date / Time aspirin Allergy Anaphylaxsi Verified 01/05/23 11:16 s atorvastatin AdvReac Intermediate Muscle pain Verified 01/05/23 11:16 Home Medications Medication Instructions Recorded Confirmed Type lancets 28 gauge #100 ea 02/26/13 01/05/23 History blood sugar diagnostic (OneTouch #100 strips 01/15/17 01/05/23 History Ultra Test strips) ciekogly-upq-hpvtq acid 0.4 1 tab PO DAILY 08/24/20 01/08/23 History mg-lycopene 300 mcg-lutein 250 mcg tablet (Centrum Silver) omega 0-euj-gpn-fish oil 1,200 mg 1 cap PO DAILY 08/24/20 01/08/23 History (144 mg-216 mg) capsule (Fish Oil) acetaminophen 500 mg tablet 1,000 mg PO Q8H PRN pain #60 tabs 10/12/20 01/08/23 Rx glucosamine sulf dipot 2 cap PO DAILY 10/12/20 01/08/23 History chlr,msm,chond 550 mg-C 30 mg-rylee 1 mg capsule (Glucosamine Chondroitin) fluticasone propionate 110 2 puff inhalation BID #36 grams 03/30/22 01/08/23 Rx mcg/actuation HFA aerosol inhaler (Flovent HFA) ibuprofen 600 mg tablet 600 mg PO HS PRN pain #30 tabs 04/20/22 01/08/23 Rx glipizide 5 mg tablet 5 mg PO BID #180 tab-caps 06/22/22 01/08/23 Rx albuterol sulfate 90 mcg/actuation 2 puff inhalation Q4H PRN 07/03/22 01/08/23 Rx aerosol inhaler (Proventil HFA) bronchospasm #18 grams fluticasone propionate 50 2 spray intranasal DAILY 30 days 10/25/22 01/08/23 Rx mcg/actuation nasal #16 grams spray,suspension (Flonase Allergy Relief) metformin 1,000 mg tablet 1,000 mg PO BID #180 tab-caps 11/10/22 01/08/23 Rx ciprofloxacin HCl 500 mg tablet 500 mg PO BID #20 tabs 12/07/22 01/08/23 Rx (Cipro) Exam Const General: cooperative Neck Neck: supple Resp Effort & Inspection: normal respiratory effort Auscultation: clear to auscultation bilaterally Cardio Rate: regular rate Rhythm: regular rhythm GI Palpation: soft and no masses Neuro General: patient alert, patient awake and patient oriented x3 Results Last Vital Signs Temp 36.6 C 01/08/23 09:07 Pulse 66 01/08/23 09:07 Resp 20 01/08/23 09:07 BP 134/58 L 01/08/23 09:07 Pulse Ox 98 01/08/23 09:07 Time Spent Time spent with Patient: <40 minutes Time was spent: other
[2023-01-08] MEDS: ceFAZolin 3,000 MG in Normal Saline 100 ML 200 MG IVPB (10:33)
[2023-01-08] MEDS: Omnipaque 300 MG/ML 50 ML BTL (11:05)
[2023-01-08] MEDS: Lidocaine 2% Jelly 6 ML SYR (11:05)
--- NOTE | 2023-01-08 11:14 | W.PM.DSUDISC ---
Date of service: 01/08/23 Time of Service: 11:14 Discharge Plan Disposition Patient Disposition: Home Condition: Stable Discharge Details Reason For Visit: ureteroscopy Attending Provider: Shane Millard Primary Care Provider: Alysha Borges Home Meds and New Rx's Prescriptions: Discontinued ciprofloxacin HCl [Cipro] 500 mg tablet 500 mg PO BID Qty: 20 0RF No Action ibuprofen 600 mg tablet 600 mg PO HS PRN (Reason: pain) Qty: 30 3RF Rx Instructions: Take with food omega 7-ooi-tzq-fish oil [Fish Oil] 1,200 (144-216) mg capsule 1 cap PO DAILY Centrum Silver 0.4-300-250 mg-mcg-mcg tablet 1 tab PO DAILY fluticasone propionate [Flovent HFA] 110 mcg/actuation HFA aerosol inhaler 2 puff inhalation BID Qty: 36 4RF fluticasone propionate [Flonase Allergy Relief] 50 mcg/actuation spray,suspension 2 spray intranasal DAILY 30 Days Qty: 16 12RF Rx Instructions: administer into each nostril (DME) lancets 1 EACH misc 1 ea Miscellaneous DAILY Qty: 100 Patient Comments: pt. checked blood sugar three months ago Rx Instructions: DX:250.0 ONE TOUCH DELICA (DME) OneTouch Ultra Test 1 EACH strip 1 ea Miscellaneous BID Qty: 100 Patient Comments: pt. used three months ago glipizide 5 mg tablet 5 mg PO BID Qty: 180 3RF albuterol sulfate [Proventil HFA] 90 mcg/actuation HFA aerosol inhaler 2 puff IH Q4H PRN (Reason: bronchospasm) Qty: 18 4RF metformin 1,000 mg tablet 1,000 mg PO BID Qty: 180 4RF Glucosamine Chondroitin 550-30-1 mg Capsule 2 cap PO DAILY acetaminophen 500 mg tablet 1,000 mg PO Q8H PRN (Reason: pain) Qty: 60 2RF Discharge Instructions Additional Instructions: no need to strain urine followup 4 to 6 weeks with renal US to be done in the office Activity:: Activity as Tolerated Shower/Bathe:: 24 hours Diet:: As Tolerated Discharge Orders Discharge Orders: Discharge Order (Routine); Ordered 01/08/23 Ordered By: Shane Millard Discharge Data Discharge Comment: additional post op instructions from Dr warner DS: Diagnosis Discharge Diagnosis (1) Kidney stone: Status: Acute
--- NOTE | 2023-01-08 11:25 | W.PM.OP ---
Date of service: 01/08/23 Time of Service: 11:25 Operative Note Operative Note DATE OF PROCEDURE: 01/08/23 PRE-OP DIAGNOSIS: Left kidney stone POST-OP DIAGNOSIS: same PROCEDURE: cystoscopy, remove left ureteral stent, left retrograde pyelogram, left flexible ureteroscopy with extraction of stone fragments SURGEON: Shane Millard ANESTHESIA TYPE: Local By Surgeon and General LMA/ETT Refer to Anesthesia Record ESTIMATED BLOOD LOSS: 5 PATHOLOGY: other (stones for chemical analysis) COMPLICATIONS: None Patient was transported to: no change Patient's condition: stable Implants: none Indications: This is a 67-year-old woman who initially presented with E. coli sepsis. She was found to have an obstructing left ureteral stone. We placed a ureteral stent and treated her with antibiotics. As her infection cleared, we brought her to the operating room for ureteroscopy and holmium laser lithotripsy of her stone. The stone had been bumped up into the lower pole calyx of the left kidney. We treated the stone with the holmium laser the and extracted the majority of the fragments. I was not certain that all fragments had been cleared, so I placed the stent back with plans to bring her in for a staged ureteroscopy. She presents now for repeat ureteroscopy to extract any residual stone fragments. Findings: few small residual stone fragments in lower pole calyx Procedure Description: The patient was given preoperative IV antibiotics and brought to the operating room on 01/08/2023. After successful induction of general anesthesia, she was placed in the dorsal lithotomy position. Her genitalia was prepped and draped. 2% Xylocaine jelly was instilled into the urethra. A 22 Croatian rigid cystoscope was passed through the urethra into the bladder. The bladder was inspected with a 30 degree lens. The stent could be seen protruding from the left ureteral orifice. The stent was grasped with alligator forceps and brought to the level of the urethral meatus. A Glidewire was then advanced through the lumen of the stent and the stent was removed leaving the wire in place. A ureteral access catheter was passed over the wire and positioned in the mid ureter. The wire was removed and a retrograde pyelogram was obtained by injecting Omnipaque through the access catheter under fluoroscopic guidance. No large filling defects were seen in the ureter or collecting system. The guidewire was then passed back through the access catheter and the catheter was removed. A dual-lumen catheter was advanced over the wire and a second wire was positioned. We chose one of the wires as a working wire and the second as a safety wire. I passed a ureteral access sheath over the working wire and advanced the sheath until the tip was seen in the proximal ureter. Flexible ureteroscopy was then performed through the access sheath. We inspected each of the calyces and found a few small residual fragments in the lower pole calyx where the stone had previously been treated. These fragments were extracted using a 0 tip stone basket. The fragments were sent to pathology for chemical analysis. With all large stone fragments removed, we removed the flexible ureteroscope and access sheath. We removed the safety wire. The patient tolerated this procedure well with no complications. She was left in the operating room as she will be undergoing laryngoscopy by Dr. Edmondson under the same anesthetic.
--- NOTE | 2023-01-08 11:33 | VOCCOR_PTH ---
PATIENT: Radha Ryan LOC: [facility] U#:[id number] AGE/SX: 67/F ROOM: RE01/08/[address]: Shane Millard MD : 1955 BED: DIS: 01/08/2023 SPEC #: [id number] RECD: 01/08/23 13:05 STATUS: PUSHPA REQ #: [id number] VALE: 01/08/23 11:[address]: Shane Millard DEPT: Surgical Specimen RECD BY: Marie Gutierrez ENTERED: 01/08/23 13:05 SP TYPE: VOCCOR OTHR DR: Alysha Borges, SUKHWINDER Tissues: 1 - VOCAL CORD Procedures: GROSS AND MICRO LEVEL 4 Comments: [id number]
--- NOTE | 2023-01-08 11:36 | PDOC.DSDIS_ITS ---
Date of service: 01/08/23 Time of Service: 11:36 Discharge Plan Disposition Patient Disposition: Home Condition: Good Discharge Details Reason For Visit: ureteroscopy, microlaryngoscopy Attending Provider: Shane Millard Primary Care Provider: Alysha Borges Home Meds and New Rx's Prescriptions: Discontinued ciprofloxacin HCl [Cipro] 500 mg tablet 500 mg PO BID Qty: 20 0RF No Action ibuprofen 600 mg tablet 600 mg PO HS PRN (Reason: pain) Qty: 30 3RF Rx Instructions: Take with food omega 6-bpw-uup-fish oil [Fish Oil] 1,200 (144-216) mg capsule 1 cap PO DAILY Centrum Silver 0.4-300-250 mg-mcg-mcg tablet 1 tab PO DAILY fluticasone propionate [Flovent HFA] 110 mcg/actuation HFA aerosol inhaler 2 puff inhalation BID Qty: 36 4RF fluticasone propionate [Flonase Allergy Relief] 50 mcg/actuation spray,suspension 2 spray intranasal DAILY 30 Days Qty: 16 12RF Rx Instructions: administer into each nostril (DME) lancets 1 EACH misc 1 ea Miscellaneous DAILY Qty: 100 Patient Comments: pt. checked blood sugar three months ago Rx Instructions: DX:250.0 ONE TOUCH DELICA (DME) OneTouch Ultra Test 1 EACH strip 1 ea Miscellaneous BID Qty: 100 Patient Comments: pt. used three months ago glipizide 5 mg tablet 5 mg PO BID Qty: 180 3RF albuterol sulfate [Proventil HFA] 90 mcg/actuation HFA aerosol inhaler 2 puff IH Q4H PRN (Reason: bronchospasm) Qty: 18 4RF metformin 1,000 mg tablet 1,000 mg PO BID Qty: 180 4RF Glucosamine Chondroitin 550-30-1 mg Capsule 2 cap PO DAILY acetaminophen 500 mg tablet 1,000 mg PO Q8H PRN (Reason: pain) Qty: 60 2RF Discharge Instructions Additional Instructions: no need to strain urine followup 4 to 6 weeks with renal US to be done in the office Avoid shouting or whispering. Keep yourself well-hydrated. Avoid acid reflux. Tylenol or ibuprofen for pain control for larynx, expect some minor hoarseness that should improve over the next 2 weeks. No smoking or secondhand smoke exposure. Referrals: Abdi Edmondson MD [ [facility] STAFF PHYSICIAN] - (1 month, please call for appointment prior to patient's departure) Activity:: Activity as Tolerated Shower/Bathe:: 24 hours Diet:: As Tolerated Discharge Orders Discharge Orders: Discharge Order (Routine); Ordered 01/08/23 Ordered By: Shane Millard Discharge Data Discharge Comment: additional post op instructions from Dr edmondson DS: Diagnosis Discharge Diagnosis (1) Kidney stone: Status: Acute
--- NOTE | 2023-01-08 11:38 | ROE_ITS ---
Date of service: 01/08/23 Time of Service: 11:38 Operative Note Operative Note DATE OF PROCEDURE: 01/08/23 PRE-OP DIAGNOSIS: Left vocal cord mass POST-OP DIAGNOSIS: same PROCEDURE: Microlaryngoscopy with left true vocal cord polyp excision SURGEON: Abdi Edmondson ANESTHESIA TYPE: General LMA/ETT Refer to Anesthesia Record ESTIMATED BLOOD LOSS: 5 PATHOLOGY: other (stones for chemical analysis,, left vocal cord polyp) COMPLICATIONS: None Patient was transported to: no change Patient's condition: stable Indications: Patient with a persistent left vocal cord mass, felt to be a polyp based on appearance in the office. Options were explained to the patient regarding further management. Risks including bleeding, infection, worsening voice qu ality, hoarseness, or need further treatment or surgery or recurrence were discussed at length. Consent was reviewed. There have been no change in her health, save for problems related to her nephrolithiasis. Findings: Left true vocal cord translucent polyp attached to the anterior two thirds of the vocal cord, right true vocal cord essentially normal. No other masses or lesions. Procedure Description: The urology portion of the procedure was completed first. The patient was then prepped and draped in appropriate fashion and a dental guard placed along the upper dentition. A laryngoscope was carefully introduced into the oral cavity and advanced into the larynx to afford exposure of the vocal cords. Examination as the passage was made, revealed no other masses or lesions. Once the vocal cords were reached, the laryngoscope was placed in suspension, exposing the left vocal cord polyp. This was pulled gently medially using a pair of cup forceps, and sharply excised, taking care to leave a good layer of Michael's space material, and enough mucosa to overlay the excisional site. Bleeding was minimal and self-limited. Specimen was placed in formalin and sent to pathology. Airway was felt to be stable. The laryngoscope was taken out of suspension and withdrawn revealing no damage to the teeth. The dental guard was taken out. The patient was then awakened and extubated by anesthesia and taken the recovery room in stable condition. I was present throughout the entire case .
--- NOTE | 2023-01-08 12:05 | W.ANESPOSTOP ---
Postoperative Evaluation Date, Time and Location Date Performed: 01/08/23 Time Performed: 12:06 Patient Location: PACU Vital Signs Most Recent Imported Vital Signs: Most Recent Vital Signs Temp Pulse Resp BP Pulse Ox 36.3 C L 69 23 164/52 H 98 01/08/23 11:50 01/08/23 11:55 01/08/23 11:55 01/08/23 11:55 01/08/23 11:55 Pain Score Most Recent Pain Score: Most Recent Pain Score Pain Level 0 01/08/23 11:55 Assessment Mental Status: Arousable with meaningful communication Airway and Respiratory Function: Patent airway with normal (patient baseline) respiratory exam Cardiovascular Function: Hemodynamically Stable Hydration Status: Adequately Hydrated Nausea & Vomiting: No Nausea or Vomiting Pain: Pain is tolerable per patient Peripheral Nerve Block: Patient did not receive a nerve block
[2023-01-12 10:51] LABS: Source: Left Ureter
== END 2023-01-08 13:30 | disposition home or self-care (01) ==
PROVIDERS: Otolaryngology; PCP Nurse Practitioner Family; Visit Provider Urology
PROC: (CPT 52325; principal; 2023-01-08 11:00)
PROC: 0CJS8ZZ Inspection of Larynx, Via Natural or Artificial Opening Endoscopic (ICD-10-PCS; CPT 31541; 2023-01-08 11:00)
DX: N20.0 Calculus of kidney (principal); J38.1 Polyp of vocal cord and larynx; E11.9 Type 2 diabetes mellitus without complications; E03.9 Hypothyroidism, unspecified
CPT/HCPCS: 31541; 52325; 88305; 74420; 82365; J0690; J1100; J1885; J2250; J2405; Q9967

== ENCOUNTER → 2023-01-30 13:25 | Outpatient (BNVA) | payer MEDICARE, SELFPAY | PROVIDERS: PCP Nurse Practitioner Family; Referring Provider Nurse Practitioner Family; Visit Provider Urology | DX: N20.0 Calculus of kidney (principal) | CPT/HCPCS: 81003; 99213 ==

== ENCOUNTER 2023-04-05 04:30 | Outpatient (CLI) | payer MEDICARE, SELFPAY ==
[2023-04-05 12:42] LABS: Anion Gap 6.7 mmol/L (3-11); BUN 17 mg/dL (7-18); CO2 26.3 mmol/L (21.0-32.0); Calcium 9.7 mg/dL (8.5-10.1); Calculated LDL 168 mg/dL (<100); Chloride 103 mmol/L (98-107); Cholesterol 252 mg/dL (<200); Estimated GFR 62.52 (mL/min/1.73m2); Glucose 197 mg/dL (74-106); HDL Cholesterol 54 mg/dL (40-60); Potassium 4.7 mmol/L (3.5-5.1); Sodium 136 mmol/L (136-145); TSH (W/Ref FT4) 12.71 uIU/mL (0.36-3.74); Triglyceride 150 mg/dL (<150)
[2023-04-05 12:55] LABS: Hemoglobin A1C 8.3 % (<5.7)
[2023-04-05 13:00] LABS: FREE T4 0.62 ng/dL (0.76-1.46)
== END 2023-04-05 04:31 | disposition home or self-care (01) ==
LOC: LOS 04:31
PROVIDERS: PCP Nurse Practitioner Family; Visit Provider Nurse Practitioner Family
DX: I10 Essential (primary) hypertension (principal); E78.5 Hyperlipidemia, unspecified; E11.9 Type 2 diabetes mellitus without complications; E03.9 Hypothyroidism, unspecified; J45.909 Unspecified asthma, uncomplicated; E66.9 Obesity, unspecified
CPT/HCPCS: 36415; 80048; 80061; 83036; 84439; 84443

== ENCOUNTER 2023-05-28 09:31 | Outpatient (CLI) | payer MEDICARE, SELFPAY ==
--- NOTE | 2023-05-28 09:00 | DI.RAD_ITS ---
Exam(s) XR KNEE RT 3V AP,LAT,CYN EXAM: XR KNEE RT 3V AP,LAT,CYN CLINICAL HISTORY: R knee pain. TECHNIQUE: 2D digital imaging was performed of the right knee. Three views obtained. AP, lateral an d PA tunnel views were obtained. COMPARISON: CR,XR XR KNEE RT 3V AP,LAT,CYN from 06/20/2022 FINDINGS: BONES: No acute fracture is present. No bony destructive lesion is seen. JOINTS: The knee is normally aligned. Small joint effusion. There is mild narrowing of the medial fe moral tibial joint. SOFT TISSUE: Normal. IMPRESSION: Mild medial compartment joint space narrowing and small joint effusion. DATA REPOSITORY: RADIATION DOSE DELIVERED:
== END 2023-05-28 09:32 | disposition home or self-care (01) ==
LOC: DIORS 09:31
PROVIDERS: PCP Nurse Practitioner Family; Referring Provider Nurse Practitioner Family; Visit Provider Student in an Organized Health Care Education/Training Program
DX: M23.91 Unspecified internal derangement of right knee; M70.62 Trochanteric bursitis, left hip
CPT/HCPCS: 20610; 73562; J1040

== ENCOUNTER → 2023-06-12 02:18 | Outpatient (CLI) | payer MEDICARE, SELFPAY ==
--- NOTE | 2023-06-12 07:00 | DI.DEXA_ITS ---
Exam(s) XR DEXA BONE DENSITY W/WO DENNIS EXAM: XR DEXA BONE DENSITY W/WO DENNIS CLINICAL HISTORY: yearly screening for osteoporosis in postmenopausal woman,z78.0 TECHNIQUE: COMPARISON: No exams were available for comparison FINDINGS: Lateral Spine Image: Unremarkable. No compression deformities identified. Left hip: Total T-Score: -0.3 Total Z-Score: 1.0 T- and Z-scores: Within normal limits. Lumbar Spine: Total T-Score: -1.0 Total Z-Score: 0.8 T- and Z-scores: Within normal limits. IMPRESSION: No evidence of osteoporosis.
--- NOTE | 2023-06-12 10:28 | DI.CTLCSR_ITS ---
Exam(s) CT CHEST LUNG CANCER SCREEN EXAM: CT CHEST LUNG CANCER SCREEN CLINICAL HISTORY: Screening for lung cancer,former smoker, z87.891 TECHNIQUE: Imaging Protocol: Axial computed tomography images with coronal and sagittal reformatted images were created and reviewed COMPARISON: CT CT CHEST LUNG CANCER SCREEN from 05/11/[address] CHEST/ABD/PEL WO from 12/04/2022 FINDINGS: Tracheobronchial tree: Patent where visualized. Pulmonary parenchyma: No consolidation or dominant measurable mass. No architectural distortion. Lung Nodules: None. Mediastinum and Gilma: No dominant adenopathy or fluid collection. The esophagus is unremarkable.There is a small hiatal hernia. Thyroid gland: Unremarkable. Lymph nodes: Unremarkable. Pleura: No effusion or pneumothorax. Heart: The heart is not dilated. [id number] coronary artery calcification. No pericardial effu betty. Aorta: Thoracic aorta non-dilated.Atherosclerosis. Upper abdomen: Status post cholecystectomy. Soft Tissues: Unremarkable. Bones: Within normal limits. IMPRESSION: No pulmonary nodules. Lung RADS Cat 1 - Negative: No nodules and definitely benign nodules Lung-RADS 1.0 CATEGORIES: Category 0 - Prior chest CT exam(s) being located for comparison. Category 1 - Annual screening in 12 months. No nodules or definitely benign nodules. Category 2 - Annual screening in 12 months. Benign appearance. Nodules with low likelihood of becomin g active cancer. Category 3 - 6-month follow-up. Probably benign. Short-term follow-up suggested. Nodules with low lik elihood of becoming active cancer. Category 4A - 3-month follow-up and CT/PET if >8 mm in size. Suspicious finding. Findings which requi re additional testing. Category 4B - Findings which require additional testing and tissue sampling. Suspicious finding. Category 4X - Category 3 or 4 nodules with additional features or imaging findings that increases the suspicion of malignancy. Modifier S- Potentially clinically significant finding. (Non lung cancer) RADIATION DOSE DELIVERED: 93.7mGy.cm Total DLP 93.7mGy.cmTotal DLP DATA REPOSITORY: All CT scans at this facility are submitted to the National Radiology Data Registry (NRDR) Dose Index Registry (DIR) with the [employer] ([employer]). RADIATION OPTIMIZATION: All CT scans at this facility use at least one of these dose optimization te chniques: automated exposure control; mA and/or kV adjustment per patient size (includes targeted exa ms where dose is matched to clinical indication); or iterative reconstruction.
== END ==
PROVIDERS: PCP Nurse Practitioner Family; Visit Provider Nurse Practitioner Family
DX: E11.9 Type 2 diabetes mellitus without complications (principal); Z87.891 Personal history of nicotine dependence; Z78.0 Asymptomatic menopausal state; Z13.820 Encounter for screening for osteoporosis; Z12.2 Encounter for screening for malignant neoplasm of respiratory organs
CPT/HCPCS: 71271; 77080

== ENCOUNTER → 2023-07-16 00:53 | Outpatient (CLI) | payer MEDICARE, SELFPAY ==
--- NOTE | 2023-07-16 06:15 | DI.US_ITS ---
Exam(s) US RENAL EXAM: US RENAL CLINICAL HISTORY: ? recurrent stones,kidney stones,n20.0 TECHNIQUE: Ultrasound of both kidneys performed using standard protocol. COMPARISON: US HEART ULTRASOUND GRP from 11/18/[address] CHEST/ABD/PEL WO from 12/04/[address] CHEST LUNG CANCER SCREEN from 06/12/2023 FINDINGS: RIGHT KIDNEY: Measures 11 cm in length. No cysts evident. Normal cortical thickness and corticomedullary differenti ation .No solid masses No intrarenal calculi nor hydronephrosis. LEFT KIDNEY: Measures 12 cm in length. No cysts evident. Normal cortical thickness and corticomedullary different iaion. No solids masses. No intrarenal calculi nor hydonephrosis. URINARY BLADDER: Prevoid volume is 143 cc No evidence of obvious bladder mass nor diverticuli. Ureterovesical jets: The left ureterovesical jet was identified. The right was not identified IMPRESSION: 1. No significant ultrasound findings in the kidneys. There is no hydronephrosis on the left side, this being the side which exhibited mild hydronephrosis and an obstructing 11 millimeter calculus at the left ureteropelvic junction, as seen on prior CT scan of 12/04/2022. DATA REPOSITORY:
== END ==
PROVIDERS: PCP Nurse Practitioner Family; Visit Provider Urology
DX: N20.0 Calculus of kidney (principal)
CPT/HCPCS: 76770

== ENCOUNTER 2023-07-16 08:19 | Outpatient (CLI) | payer MEDICARE, SELFPAY ==
[2023-07-16 12:43] LABS: TSH (W/Ref FT4) 7.44 uIU/mL (0.36-3.74)
[2023-07-16 13:01] LABS: FREE T4 0.73 ng/dL (0.76-1.46)
[2023-07-16 14:45] LABS: Hemoglobin A1C 9.5 % (<5.7)
== END 2023-07-16 08:20 | disposition home or self-care (01) ==
LOC: LOS 08:20
PROVIDERS: PCP Nurse Practitioner Family; Visit Provider Nurse Practitioner Family
DX: E11.9 Type 2 diabetes mellitus without complications (principal)
CPT/HCPCS: 36415; 83036; 84439; 84443

== ENCOUNTER → 2023-07-30 08:54 | Outpatient (BNVA) | payer MEDICARE, SELFPAY | PROVIDERS: PCP Nurse Practitioner Family; Referring Provider Nurse Practitioner Family; Visit Provider Student in an Organized Health Care Education/Training Program | DX: M23.91 Unspecified internal derangement of right knee (principal) | CPT/HCPCS: 99213 ==

== ENCOUNTER 2023-08-10 14:29 | Outpatient (CLI) | payer MEDICARE, SELFPAY | END 2023-08-10 14:30 | disposition home or self-care (01) | LOC: ORDER INT 14:39 | PROVIDERS: PCP Nurse Practitioner Family; Referring Provider Nurse Practitioner Family; Visit Provider Urology ==

== ENCOUNTER → 2023-08-10 14:29 | Outpatient (BNVA) | payer MEDICARE, SELFPAY | PROVIDERS: PCP Nurse Practitioner Family; Referring Provider Nurse Practitioner Family; Visit Provider Urology | DX: N20.0 Calculus of kidney (principal) | CPT/HCPCS: 99213 ==

== ENCOUNTER → 2023-08-17 03:00 | Outpatient (CLI) | payer MEDICARE, SELFPAY ==
--- NOTE | 2023-08-17 08:15 | DI.MRI_ITS ---
Exam(s) MR LOWER JOINT RT WO EXAM: MR LOWER JOINT RT WO CLINICAL HISTORY: pain,internal derangement rt knee, m23.91. TECHNIQUE: Multiplanar multisequence MRI was performed. COMPARISON: CR XR KNEE RT 3V AP,LAT,CYN from 05/28/2023 FINDINGS: BONES: There is no fracture or contusion pattern. Degenerative subchondral cyst in the proximal tib ia near the tibial spines. JOINTS: A small joint effusion is present. Articular cartilage: Patellofemoral joint: Articular cartilage is unremarkable. Medial femoral tibial joint: Articular cartilage is unremarkable. Lateral femoral tibial joint: Cartilage thinning and irregularity extending down to bone of the late ral tibial plateau. TENDONS: Extensor mechanism: Unremarkable. Medial retinaculum: Unremarkable. Lateral retinaculum: Unremarkable. Popliteus: Unremarkable. MUSCLES: Unremarkable. MENISCI: The medial meniscus is unremarkable. The lateral meniscus is small some linear high signal in the body and anterior horn. There may be extension to the superior articular surface in the body. SOFT TISSUES: Mild anterior edema. Tiny Boss's cyst. LIGAMENTS: Anterior Cruciate: Unremarkable. Posterior Cruciate: Unremarkable. Medial Collateral:Unremarkable. Lateral Collateral: Unremarkable. 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 Degenerative signal change change versus tear in the body and anterior horn of the lateral meniscus. DATA REPOSITORY:
== END ==
PROVIDERS: PCP Nurse Practitioner Family; Visit Provider Student in an Organized Health Care Education/Training Program
DX: M94.261 Chondromalacia, right knee (principal)
CPT/HCPCS: 73721

== ENCOUNTER → 2023-08-23 08:35 | Outpatient (BNVA) | payer MEDICARE, SELFPAY | PROVIDERS: PCP Nurse Practitioner Family; Referring Provider Nurse Practitioner Family; Visit Provider Psychiatry & Neurology Neurology | DX: H53.9 Unspecified visual disturbance (principal); R41.3 Other amnesia; G25.0 Essential tremor; I10 Essential (primary) hypertension; E11.9 Type 2 diabetes mellitus without complications | CPT/HCPCS: 99215 ==

== ENCOUNTER → 2023-09-11 00:40 | Outpatient (CLI) | payer MEDICARE, SELFPAY ==
--- NOTE | 2023-09-11 07:45 | DI.MRI_ITS ---
Exam(s) MR BRAIN WO EXAM: MR BRAIN WO CLINICAL HISTORY: memory loss,memory change,r41.3 TECHNIQUE: Multiplanar multisequence MRI of the brain was performed. COMPARISON: CT CT HEAD WO from 12/04/2022 FINDINGS: CEREBRAL PARENCHYMA: There is no evidence of intracranial hemorrhage, mass effect, or shift of midline structures. There are no extra-axial fluid collections. Ventricles are not enlarged or shifted. There is no significant focal signal abnormality in the cerebellar hemispheres nor within the gaby, m idbrain, and thalami. There are few tiny FLAIR bright foci in the supra ventricular white matter measuring approximately 2 mm size, not associated with hemorrhage nor surrounding edema nor restricted diffusion. There is no abnormal significant signal in the brain on DWI. There is no significant focal signal abnormality evident on diffusion imaging to suggest acute ischem ic event. SWI reveals no evidence of microhemorrhages in the brain. PITUITARY GLAND: No mass nor parasellar abnormality. No obvious abnormality in the cavernous sinuses. FLOW VOIDS: The expected flow void are noted. No evidence of obvious aneurysm nor obvious vascular ma lformation. At the skull base the left vertebral artery is dominant and forms the basilar artery. Th e right vertebral artery is a thin vessel at the skull base which does not contribute to the formatio n of the basilar artery. PARANASAL SINUSES: The visualized paranasal sinuses appear unremarkable. No obvious finding there is a small amount of fluid in the dependent mastoid air cells bilaterally. ORBITS: No obvious findings. IMPRESSION: Minimal nonspecific white matter findings as described above. No evidence of hemorrhage, acute ische juan j injury, demyelinating disease, nor other specific focal findings in the brain. DATA REPOSITORY:
== END ==
PROVIDERS: PCP Nurse Practitioner Family; Visit Provider Psychiatry & Neurology Neurology
DX: R41.3 Other amnesia (principal)
CPT/HCPCS: 70551

== ENCOUNTER 2023-09-12 10:46 | Day surgery (SDC) | payer MEDICARE, SELFPAY ==
[2023-09-12 12:06] VITALS: BP 172/50; PULSE 72; RESP 18; TEMP 36.6; O2SAT 97
[2023-09-12] MEDS: Lactated Ringers 1,000 ML 80 ML IV (12:40)
--- NOTE | 2023-09-12 13:12 | W.PM.DSUDISC ---
Date of service: 09/12/23 Time of Service: 13:12 Discharge Plan Disposition Patient Disposition: Home Condition: Good Discharge Details Reason For Visit: R knee arthroscopy Attending Provider: Bassam Sutton Primary Care Provider: Alysha Borges Home Meds and New Rx's Prescriptions: No Action Trulicity 0.75 mg/0.5 mL pen injector 0.75 mg subcut QWEEK Qty: 1 3RF omega 3-mdm-ciz-fish oil [Fish Oil] 1,200 (144-216) mg capsule 1 cap PO DAILY Centrum Silver 0.4-300-250 mg-mcg-mcg tablet 1 tab PO DAILY fluticasone propionate [Flovent HFA] 110 mcg/actuation HFA aerosol inhaler 2 puff inhalation BID Qty: 36 4RF olmesartan 5 mg tablet 5 mg PO DAILY Qty: 90 3RF fluticasone propionate [Flonase Allergy Relief] 50 mcg/actuation spray,suspension 2 spray intranasal DAILY 30 Days Qty: 16 12RF Rx Instructions: administer into each nostril primidone 50 mg tablet 25 mg PO QHS Qty: 30 5RF (DME) lancets 1 EACH misc 1 ea Miscellaneous DAILY Qty: 100 Patient Comments: pt. checked blood sugar three months ago Rx Instructions: DX:250.0 ONE TOUCH DELICA (DME) OneTouch Ultra Test 1 EACH strip 1 ea Miscellaneous BID Qty: 100 Patient Comments: pt. used three months ago albuterol sulfate [Proventil HFA] 90 mcg/actuation HFA aerosol inhaler 2 puff IH Q4H PRN (Reason: bronchospasm) Qty: 18 4RF metformin 1,000 mg tablet 1,000 mg PO BID Qty: 180 4RF ibuprofen 600 mg tablet 600 mg PO HS PRN (Reason: pain) Qty: 30 3RF Rx Instructions: Take with food glipizide 5 mg tablet 5 mg PO BID Qty: 180 3RF levothyroxine 50 mcg tablet 50 mcg PO DAILY Qty: 90 3RF lorazepam 0.5 mg tablet 0.5 mg PO ONCE PRN (Reason: anxiety/claustrophobia) Qty: 2 0RF Rx Instructions: Take one tablet 30min prior to MRI. Ok to take second at time of MRI if still anxious. Do not drive after taking. Glucosamine Chondroitin 550-30-1 mg Capsule 2 cap PO DAILY acetaminophen 500 mg tablet 1,000 mg PO Q8H PRN (Reason: pain) Qty: 60 2RF Ozempic 0.25 mg or 0.5 mg (2 mg/3 mL) pen injector 0.25 mg subcut QWEEK Rx Instructions: for 4 weeks Discharge Orders Discharge Orders: Discharge Order (Routine); Ordered 09/12/23 Ordered By: Yariel Gage DS: Diagnosis Discharge Diagnosis (1) Tear of medial meniscus of right knee: Status: Acute (2) Tear of lateral meniscus of right knee: Status: Acute
--- NOTE | 2023-09-12 14:09 | NUR.NOTE ---
1500: in to talk to pt about her recent Ozempic usage. Pt. reported to this nurse that she took her last dose of weight lose medication that has a Z in its name on September 03 in preparation for the MRI she had yesterday. This nurse asked pt. if the medication was Ozempic and pt. said she thought so, stating it was a 0.25 dose that she was injecting. discussed with pt. that recommendation was to have stopped this medication 14 days prior to surgery and that she would be cancelled today but could be rescheduled next sunday09/18/23, pt. agreeable. Ride called and lunch ordered. IV DCd. Pt. up to side of bed, pt. ambulated to BR,changed into street clothes, back to chair for lunch and wait for ride. Call donta lee. Nursing Note:
== END 2023-09-12 14:00 | disposition home or self-care (01) ==
PROVIDERS: PCP Nurse Practitioner Family; Visit Provider Student in an Organized Health Care Education/Training Program
DX: Z53.09 Procedure and treatment not carried out because of other contraindication (principal)
CPT/HCPCS: J1100; J2001; J2250; J2405; J2704; J3010

== ENCOUNTER 2023-09-18 10:59 | Day surgery (SDC) | payer MEDICARE, SELFPAY ==
[2023-09-18] VITALS (9 sets, daily range): BP systolic 99–161; BP diastolic 40–80; PULSE 58–65; RESP 14–16; TEMP 36.1–36.6; O2SAT 95–97; BMI 43.2
--- NOTE | 2023-09-18 11:54 | W.PREOPHP ---
Documented by User: Chelsea Pratt 09/18/23 12:12 Assessment and Plan Assessment and plan (1) Tear of lateral meniscus of right knee: Status: Acute (2) Tear of medial meniscus of right knee: Status: Acute Assessment and plan: Plan: She was screened by the nursing staff to have no symptoms or red flags for possible Covid-19 infection. Educated patient on surgery covering surgical technique, recovery process, benefits and risks including but not limited to risk of infection, blood clot, damage to soft tissue/blood vessels/nerves in detail. After discussion patient gives verbal understanding of risks and elects to proceed with scheduling surgery. Patient had opportunity to have questions answered to their satisfaction. They will contact office if issues arise. Patient will continue to be scheduled for right knee arthroscopy with partial medial and lateral mensicectomies and associated procedures with Dr. Sutton History of Present Illness Narrative: Ms. Ryan is a 68-year-old female who presents to hospital for scheduled right knee arthroscopy for known medial and lateral mensicus tears. She has been experiencing right knee discomfort for over 4 months that is aggravated with workouts and by the end of the day despite activity modifications, NSAIDs and PT. Due to her continued pain and known meniscus tears she was offered and elected to proceed with surgical intervention. Review of Systems Cardiovascular Cardiovascular: Denies chest pain, Denies dyspnea and Denies dyspnea on exertion Respiratory Respiratory: Denies cough, Denies dyspnea and Denies dyspnea on exertion PFSH All Active Problems Tear of lateral meniscus of right knee (Acute) Tear of medial meniscus of right knee (Acute) Vision changes (Acute) Essential tremor (Acute) Trochanteric bursitis, left hip (Acute) Internal derangement of right knee (Acute) Steroid injection: 05/28/2023 Memory change (Acute) Kidney stone (Acute) Hypothyroidism (Chronic) Hoarseness (Acute) Michael's edema of vocal folds (Acute) Essential hypertension (Chronic 04/10/17) Hyperlipidemia (Chronic) Obesity (Chronic) Primary osteoarthritis of left hip (Chronic 10/25/16) Smoker (Chronic) quit 03/2022 Type II diabetes mellitus (Chronic) Allergic rhinitis (Acute) Asthma (Chronic) History of nasal polyp (Acute) Postnasal drip (Acute) Vocal cord polyp (Acute) Snoring (Acute) Medical History Menopausal state E coli bacteremia Acute UTI Trigger finger, left middle finger s/p left middle finger trigger release DOS: 10/26/20 Left cervical radiculopathy Pain clinic at [facility] 03/25- stable Nephrocalcinosis Lumbosacral spondylosis without myelopathy Pain clinic injections didn't work 03/25 stable Surgical History History of appendectomy History of bilateral ligation of fallopian tubes History of umbilical hernia repair Status post breast biopsy Status post cholecystectomy Status post dilation and curettage Status post endometrial ablation Status post tonsillectomy S/P carpal tunnel release both S/P cataract surgery both S/P shoulder hemiarthroplasty Ligation of fallopian tube Tonsillectomy (02/09/1965) Repair of umbilical hernia (02/09/79) Endometrial Ablation (02/10/08) Dilation and curettage Cholecystectomy (02/09/79) Biopsy of breast Appendectomy (02/09/79) Family History Mother Diabetes Personal history of malignant neoplasm UTERINE Heart disease Father Personal history of malignant neoplasm liver Heart disease Social History Smoking/Tobacco Use Status: Former Tobacco Use tobacco type: cigarettes Quit Date: 03/05/22 Tobacco: How many years used: 50 Quit status: has quit before Second Hand Exposure: Yes Smoking risk assessment performed?: Yes Alcohol Intake: current Alcohol Intake frequency: a few times a month Alcohol type: hard liquor Drug use: Never Substance use type: does not use Details: alcohol: t-14, one drink Caregiver/Support person: No Household members: spouse Housing: house Number of Children: 4 number of grandchildren: 11 Communication Needs: None Do you need help understanding health information?: Rarely 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 Pets and animals: Yes Pets and animals: cat(s) Sexually active: No Do you think of yourself as: straight/heterosexual Current gender identity: female What is your relationship status?: How often do you talk on the phone with friends or family?: three or more times per week How often do you get together with friends or relatives?: three or more times per week How often do you attend catholic or advent services?: decline to answer Do you belong to any clubs or organized social groups?: decline to answer Panel score (0-1 are the most socially isolated patients): 2 What type of physical activity do you participate in: none Seatbelt use: always Helmet use: Yes Helmet use: always Drive intox or ride w/intox 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 Meds Allergies and Home Medications Allergies Allergy/AdvReac Type Severity Reaction Status Date / Time aspirin Allergy Anaphylaxsi Verified 09/18/23 12:41 s atorvastatin AdvReac Intermediate Muscle pain Verified 09/18/23 12:41 Home Medications Medication Instructions Recorded Confirmed Type lancets 28 gauge #100 ea 02/26/13 08/10/23 History blood sugar diagnostic (OneTouch #100 strips 01/15/17 08/10/23 History Ultra Test strips) pwzbjtfs-vha-wisoh acid 0.4 1 tab PO DAILY 08/24/20 09/18/23 History mg-lycopene 300 mcg-lutein 250 mcg tablet (Centrum Silver) omega 5-hcz-vzl-fish oil 1,200 mg 1 cap PO DAILY 08/24/20 09/18/23 History (144 mg-216 mg) capsule (Fish Oil) acetaminophen 500 mg tablet 1,000 mg (2 x 500 mg) PO Q8H PRN 10/12/20 09/18/23 Rx pain #60 tabs glucosamine sulf dipot 2 cap PO DAILY 10/12/20 09/18/23 History chlr,msm,chond 550 mg-C 30 mg-rylee 1 mg capsule (Glucosamine Chondroitin) fluticasone propionate 110 2 puff inhalation BID #36 grams 03/30/22 09/18/23 Rx mcg/actuation HFA aerosol inhaler (Flovent HFA) albuterol sulfate 90 mcg/actuation 2 puff inhalation Q4H PRN 07/03/22 09/18/23 Rx aerosol inhaler (Proventil HFA) bronchospasm #18 grams fluticasone propionate 50 2 spray intranasal DAILY 30 days 10/25/22 09/18/23 Rx mcg/actuation nasal #16 grams spray,suspension (Flonase Allergy Relief) metformin 1,000 mg tablet 1,000 mg PO BID #180 tab-caps 11/10/22 09/18/23 Rx olmesartan 5 mg tablet 5 mg PO DAILY #90 tabs 04/03/23 09/18/23 Rx ibuprofen 600 mg tablet 600 mg PO HS PRN pain #30 tabs 05/14/23 09/18/23 Rx glipizide 5 mg tablet 5 mg PO BID #180 tab-caps 07/12/23 09/18/23 Rx dulaglutide 0.75 mg/0.5 mL 0.75 mg (0.5 mL) subcut QWEEK #1 mL 07/16/23 09/17/23 Rx subcutaneous pen injector (Trulicity) levothyroxine 50 mcg tablet 50 mcg PO DAILY #90 tabs 07/24/23 09/18/23 Rx primidone 50 mg tablet 25 mg (1/2 x 50 mg) PO QHS #30 tabs 08/23/23 09/18/23 Rx lorazepam 0.5 mg tablet 0.5 mg PO ONCE PRN 09/03/23 09/18/23 Rx anxiety/claustrophobia #2 tabs Exam Const General: cooperative and no acute distress Resp Effort & Inspection: normal respiratory effort and able to speak in complete sentences Auscultation: clear to auscultation bilaterally, no rales, no rhonchi and no wheezes Cardio Heart Sounds: S1 normal, S2 normal and no murmurs Documented by User: Bassam Sutton MD 09/18/23 13:36 Assessment and Plan Assessment and plan (1) Tear of lateral meniscus of right knee: Status: Acute (2) Tear of medial meniscus of right knee: Status: Acute Assessment and plan: Plan: She was screened by the nursing staff to have no symptoms or red flags for possible Covid-19 infection. Educated patient on surgery covering surgical technique, recovery process, benefits and risks including but not limited to risk of infection, blood clot, damage to soft tissue/blood vessels/nerves in detail. After discussion patient gives verbal understanding of risks and elects to proceed with scheduling surgery. Patient had opportunity to have questions answered to their satisfaction. They will contact office if issues arise. Patient will continue to be scheduled for right knee arthroscopy with partial medial and lateral mensicectomies and associated procedures with Dr. Sutton I interviewed and examined the patient with Chelsea Pratt PA-C. I agree with the documentation as above. The assessment and plan were formulated with my direct involvement. Angela is a 68-year-old female who has ongoing left knee pain and instability. She has medial and lateral meniscal tears. She is exhausted nonoperative options and is here today for arthroscopic partial medial and lateral meniscectomies. I discussed the procedure with her. I reviewed the risk to include bleeding, infection, pain, stiffness, damage to nerves and vessels, worsening arthritis, blood clot. Despite these risk, she elects to proceed. I discussed the rehabilitation timeframe. She has been off her diabetes medications when appropriate mount of time. Bassam Sutton MD FAAOS FAAHKS PFSH All Active Problems Tear of lateral meniscus of right knee (Acute) Tear of medial meniscus of right knee (Acute) Vision changes (Acute) Essential tremor (Acute) Trochanteric bursitis, left hip (Acute) Internal derangement of right knee (Acute) Steroid injection: 05/28/2023 Memory change (Acute) Kidney stone (Acute) Hypothyroidism (Chronic) Hoarseness (Acute) Michael's edema of vocal folds (Acute) Essential hypertension (Chronic 04/10/17) Hyperlipidemia (Chronic) Obesity (Chronic) Primary osteoarthritis of left hip (Chronic 10/25/16) Smoker (Chronic) quit 03/2022 Type II diabetes mellitus (Chronic) Allergic rhinitis (Acute) Asthma (Chronic) History of nasal polyp (Acute) Postnasal drip (Acute) Vocal cord polyp (Acute) Snoring (Acute) Medical History Menopausal state E coli bacteremia Acute UTI Trigger finger, left middle finger s/p left middle finger trigger release DOS: 10/26/20 Left cervical radiculopathy Pain clinic at [facility] 03/25- stable Nephrocalcinosis Lumbosacral spondylosis without myelopathy Pain clinic injections didn't work 03/25 stable Surgical History History of appendectomy History of bilateral ligation of fallopian tubes History of umbilical hernia repair Status post breast biopsy Status post cholecystectomy Status post dilation and curettage Status post endometrial ablation Status post tonsillectomy S/P carpal tunnel release both S/P cataract surgery both S/P shoulder hemiarthroplasty Ligation of fallopian tube Tonsillectomy (02/09/1965) Repair of umbilical hernia (02/09/79) Endometrial Ablation (02/10/08) Dilation and curettage Cholecystectomy (02/09/79) Biopsy of breast Appendectomy (02/09/79) Family History Mother Diabetes Personal history of malignant neoplasm UTERINE Heart disease Father Personal history of malignant neoplasm liver Heart disease Social History Smoking/Tobacco Use Status: Former Tobacco Use tobacco type: cigarettes Quit Date: 03/05/22 Tobacco: How many years used: 50 Quit status: has quit before Second Hand Exposure: Yes Smoking risk assessment performed?: Yes Alcohol Intake: current Alcohol Intake frequency: a few times a month Alcohol type: hard liquor Drug use: Never Substance use type: does not use Details: alcohol: t-14, one drink Caregiver/Support person: No Household members: spouse Housing: house Number of Children: 4 number of grandchildren: 11 Communication Needs: None Do you need help understanding health information?: Rarely 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 Pets and animals: Yes Pets and animals: cat(s) Sexually active: No Do you think of yourself as: straight/heterosexual Current gender identity: female What is your relationship status?: How often do you talk on the phone with friends or family?: three or more times per week How often do you get together with friends or relatives?: three or more times per week How often do you attend catholic or advent services?: decline to answer Do you belong to any clubs or organized social groups?: decline to answer Panel score (0-1 are the most socially isolated patients): 2 What type of physical activity do you participate in: none Seatbelt use: always Helmet use: Yes Helmet use: always Drive intox or ride w/intox 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 Meds Allergies and Home Medications Allergies Allergy/AdvReac Type Severity Reaction Status Date / Time aspirin Allergy Anaphylaxsi Verified 09/18/23 12:41 s atorvastatin AdvReac Intermediate Muscle pain Verified 09/18/23 12:41 Home Medications Medication Instructions Recorded Confirmed Type lancets 28 gauge #100 ea 02/26/13 08/10/23 History blood sugar diagnostic (OneTouch #100 strips 01/15/17 08/10/23 History Ultra Test strips) gvajmqus-ccw-ybwfp acid 0.4 1 tab PO DAILY 08/24/20 09/18/23 History mg-lycopene 300 mcg-lutein 250 mcg tablet (Centrum Silver) omega 4-jpv-vzm-fish oil 1,200 mg 1 cap PO DAILY 08/24/20 09/18/23 History (144 mg-216 mg) capsule (Fish Oil) acetaminophen 500 mg tablet 1,000 mg (2 x 500 mg) PO Q8H PRN 10/12/20 09/18/23 Rx pain #60 tabs glucosamine sulf dipot 2 cap PO DAILY 10/12/20 09/18/23 History chlr,msm,chond 550 mg-C 30 mg-rylee 1 mg capsule (Glucosamine Chondroitin) fluticasone propionate 110 2 puff inhalation BID #36 grams 03/30/22 09/18/23 Rx mcg/actuation HFA aerosol inhaler (Flovent HFA) albuterol sulfate 90 mcg/actuation 2 puff inhalation Q4H PRN 07/03/22 09/18/23 Rx aerosol inhaler (Proventil HFA) bronchospasm #18 grams fluticasone propionate 50 2 spray intranasal DAILY 30 days 10/25/22 09/18/23 Rx mcg/actuation nasal #16 grams spray,suspension (Flonase Allergy Relief) metformin 1,000 mg tablet 1,000 mg PO BID #180 tab-caps 11/10/22 09/18/23 Rx olmesartan 5 mg tablet 5 mg PO DAILY #90 tabs 04/03/23 09/18/23 Rx ibuprofen 600 mg tablet 600 mg PO HS PRN pain #30 tabs 05/14/23 09/18/23 Rx glipizide 5 mg tablet 5 mg PO BID #180 tab-caps 07/12/23 09/18/23 Rx dulaglutide 0.75 mg/0.5 mL 0.75 mg (0.5 mL) subcut QWEEK #1 mL 07/16/23 09/17/23 Rx subcutaneous pen injector (Trulicity) levothyroxine 50 mcg tablet 50 mcg PO DAILY #90 tabs 07/24/23 09/18/23 Rx primidone 50 mg tablet 25 mg (1/2 x 50 mg) PO QHS #30 tabs 08/23/23 09/18/23 Rx lorazepam 0.5 mg tablet 0.5 mg PO ONCE PRN 09/03/23 09/18/23 Rx anxiety/claustrophobia #2 tabs
--- NOTE | 2023-09-18 12:14 | PDOC.DSDIS_ITS ---
Date of service: 09/18/23 Time of Service: 12:15 Discharge Plan Disposition Patient Disposition: Home Condition: Good Discharge Details Reason For Visit: Right knee internal derangement Attending Provider: Bassam Sutton Primary Care Provider: Alysha Borges Home Meds and New Rx's Prescriptions: Continued Trulicity 0.75 mg/0.5 mL pen injector 0.75 mg subcut QWEEK Qty: 1 3RF omega 3-isb-arb-fish oil [Fish Oil] 1,200 (144-216) mg capsule 1 cap PO DAILY Centrum Silver 0.4-300-250 mg-mcg-mcg tablet 1 tab PO DAILY fluticasone propionate [Flovent HFA] 110 mcg/actuation HFA aerosol inhaler 2 puff inhalation BID Qty: 36 4RF olmesartan 5 mg tablet 5 mg PO DAILY Qty: 90 3RF fluticasone propionate [Flonase Allergy Relief] 50 mcg/actuation spray,suspension 2 spray intranasal DAILY 30 Days Qty: 16 12RF Rx Instructions: administer into each nostril primidone 50 mg tablet 25 mg PO QHS Qty: 30 5RF (DME) lancets 1 EACH misc 1 ea Miscellaneous DAILY Qty: 100 Patient Comments: pt. checked blood sugar three months ago Rx Instructions: DX:250.0 ONE TOUCH DELICA (DME) OneTouch Ultra Test 1 EACH strip 1 ea Miscellaneous BID Qty: 100 Patient Comments: pt. used three months ago albuterol sulfate [Proventil HFA] 90 mcg/actuation HFA aerosol inhaler 2 puff IH Q4H PRN (Reason: bronchospasm) Qty: 18 4RF metformin 1,000 mg tablet 1,000 mg PO BID Qty: 180 4RF ibuprofen 600 mg tablet 600 mg PO HS PRN (Reason: pain) Qty: 30 3RF Rx Instructions: Take with food glipizide 5 mg tablet 5 mg PO BID Qty: 180 3RF levothyroxine 50 mcg tablet 50 mcg PO DAILY Qty: 90 3RF lorazepam 0.5 mg tablet 0.5 mg PO ONCE PRN (Reason: anxiety/claustrophobia) Qty: 2 0RF Rx Instructions: Take one tablet 30min prior to MRI. Ok to take second at time of MRI if still anxious. Do not drive after taking. Glucosamine Chondroitin 550-30-1 mg Capsule 2 cap PO DAILY acetaminophen 500 mg tablet 1,000 mg PO Q8H PRN (Reason: pain) Qty: 60 2RF Discharge Instructions Stand Alone Forms: [facility] Referrals: Bassam Sutton MD [ [facility] STAFF PHYSICIAN] - Equipment/Supplies: Partial Weight Bearing Crutches Activity:: Activity as Tolerated Remove Dressings/Wound Care:: 72 hours Shower/Bathe:: 72 hours Diet:: As Tolerated Discharge Orders Discharge Orders: Discharge Order (Routine); Ordered 09/18/23 Ordered By: Chelsea Pratt DS: Diagnosis Discharge Diagnosis (1) Tear of lateral meniscus of right knee: Status: Acute (2) Tear of medial meniscus of right knee: Status: Acute
[2023-09-18] MEDS: Acetaminophen 500 MG TAB 1000 MG PO (12:48)
[2023-09-18] MEDS: Gabapentin 300 MG CAP PO (12:48)
--- NOTE | 2023-09-18 13:02 | W.ANESPRE ---
General Info Date of Service Date Performed: 09/18/23 Height: 5 ft 3 in Weight: 110.6 kg Body Mass Index (BMI): 43.2 Surgical Procedure: Operation Date: 09/18/23 15:40 Proposed Procedure Side Surgeon p Knee Arthroscopy w/ Partial & Lateral Meniscectomy Right Bassam Sutton MD Meds Allergies and Home Medications Allergies Allergy/AdvReac Type Severity Reaction Status Date / Time aspirin Allergy Anaphylaxsi Verified 09/18/23 12:41 s atorvastatin AdvReac Intermediate Muscle pain Verified 09/18/23 12:41 Home Medication Medication Instructions Recorded lancets 28 gauge #100 ea 02/26/13 blood sugar diagnostic (OneTouch #100 strips 01/15/17 Ultra Test strips) hwccdsgr-inn-qvkue acid 0.4 1 tab PO DAILY 08/24/20 mg-lycopene 300 mcg-lutein 250 mcg tablet (Centrum Silver) omega 0-adn-lqk-fish oil 1,200 mg 1 cap PO DAILY 08/24/20 (144 mg-216 mg) capsule (Fish Oil) acetaminophen 500 mg tablet 1,000 mg (2 x 500 mg) PO Q8H PRN 10/12/20 pain #60 tabs glucosamine sulf dipot 2 cap PO DAILY 10/12/20 chlr,msm,chond 550 mg-C 30 mg-rylee 1 mg capsule (Glucosamine Chondroitin) fluticasone propionate 110 2 puff inhalation BID #36 grams 03/30/22 mcg/actuation HFA aerosol inhaler (Flovent HFA) albuterol sulfate 90 mcg/actuation 2 puff inhalation Q4H PRN 07/03/22 aerosol inhaler (Proventil HFA) bronchospasm #18 grams fluticasone propionate 50 2 spray intranasal DAILY 30 days 10/25/22 mcg/actuation nasal #16 grams spray,suspension (Flonase Allergy Relief) metformin 1,000 mg tablet 1,000 mg PO BID #180 tab-caps 11/10/22 olmesartan 5 mg tablet 5 mg PO DAILY #90 tabs 04/03/23 ibuprofen 600 mg tablet 600 mg PO HS PRN pain #30 tabs 05/14/23 glipizide 5 mg tablet 5 mg PO BID #180 tab-caps 07/12/23 dulaglutide 0.75 mg/0.5 mL 0.75 mg (0.5 mL) subcut QWEEK #1 mL 07/16/23 subcutaneous pen [facility]or ([facility]) levothyroxine 50 mcg tablet 50 mcg PO DAILY #90 tabs 07/24/23 primidone 50 mg tablet 25 mg (1/2 x 50 mg) PO QHS #30 tabs 08/23/23 lorazepam 0.5 mg tablet 0.5 mg PO ONCE PRN 09/03/23 anxiety/claustrophobia #2 tabs Current Visit Medications: Current Medications Generic Name Dose Route Start Last Admin Trade Name Freq PRN Reason Stop Dose Admin Acetaminophen 1,000 mg 09/18/23 06:00 09/18/23 12:48 Acetaminophen 500 Mg Tab PO 10/18/23 05:59 1,000 mg PREOP LORI Administration Acetaminophen 650 mg 09/18/23 11:29 Acetaminophen 325 Mg Tab PO 10/18/23 11:28 Q4H PRN PRN Hydrocodone Bitart/Acetaminophen 0 tab 09/18/23 11:29 Hydrocodone 5/Acetaminophen 325 Tab PO 10/18/23 11:28 Q3H PRN PRN Pain Gabapentin 300 mg 09/18/23 06:00 09/18/23 12:48 Gabapentin 300 Mg Cap PO 10/18/23 05:59 300 mg PREOP LORI Administration Ringer's Solution 1,000 mls @ 80 mls/hr 09/18/23 06:00 IV 10/17/23 23:59 INFUSION LORI Cefazolin Sodium/Dextrose 2 gm in 50 mls @ 100 mls/hr 09/18/23 06:00 Ancef Duplex IVPB 09/18/23 16:00 PREOP LORI IV Miscellaneous Supplies 1 each 09/18/23 06:00 Iv Access IV 10/17/23 23:59 DIRECTED LORI Sodium Chloride 0 ml 09/18/23 06:00 Normal Saline Flush 10 Ml Syr IV 10/17/23 23:59 PRN PRN Sodium Chloride 0 ml 09/18/23 06:00 Normal Saline 10 Ml Vial IJ 10/17/23 23:59 DIRECTED PRN Sterile Water 0 ml 09/18/23 06:00 Water,Injection,Sterile 10 Ml Vial IJ 10/17/23 23:59 DIRECTED PRN PFSH Active Problems Active Problems: Problem Status Onset Code Tear of lateral meniscus of right knee S83.281A Tear of medial meniscus of right knee S83.241A Vision changes H53.9 Essential tremor G25.0 Trochanteric bursitis, left hip M70.62 Internal derangement of right knee M23.91 Memory change R41.3 Kidney stone N20.0 Hypothyroidism E03.9 Hoarseness R49.0 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 Essential hypertension 04/10/17 I10 Hyperlipidemia E78.5 Obesity E66.9 Primary osteoarthritis of left hip 10/25/16 M16.12 Smoker F17.200 Type II diabetes mellitus E11.9 Allergic rhinitis J30.9 Asthma J45.909 History of nasal polyp Z87.09 Postnasal drip R09.82 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 2nd blood pressure 09/12/23 at 1250: 147/39. Pt. rerports being off ozempic on 09/03/23 Surgical History Surgical History History of appendectomy History of bilateral ligation of fallopian tubes History of umbilical hernia repair Status post breast biopsy Status post cholecystectomy Status post dilation and curettage Status post endometrial ablation Status post tonsillectomy S/P carpal tunnel release both S/P cataract surgery both S/P shoulder hemiarthroplasty Ligation of fallopian tube Tonsillectomy (02/09/1965) Repair of umbilical hernia (02/09/79) Endometrial Ablation (02/10/08) Dilation and curettage Cholecystectomy (02/09/79) Biopsy of breast Appendectomy (02/09/79) Tobacco Smoking/Tobacco Use Status: Former Tobacco Use Passive smoking exposure: Yes Second hand exposure: Yes Alcohol Alcohol Intake: current Alcohol intake frequency: a few times a month Alcohol type: hard liquor Substance Use Substance use: Never Substance use type: does not use Details: alcohol: t-14, one drink Vital Signs and Lab Results Vital Signs Most Recent Vital Signs in EMR: Most Recent Vital Signs Temp Pulse Resp BP Pulse Ox 36.2 C L 63 14 147/60 H 97 09/18/23 11:30 09/18/23 11:30 09/18/23 11:30 09/18/23 11:30 09/18/23 11:30 Lab Results Blood Type / Crossmatch: No Data to Display Complete Blood Count: No Data to Display Complete Metabolic Panel: No Data to Display Liver Function Panel: No Data to Display Coagulation Panel: No Data to Display Cardiac Panel: No Data to Display Arterial Blood Gas: No Data to Display Venous Blood Gas: No Data to Display Pancreas Panel: No Data to Display Thyroid Panel: No Data to Display Infectious Disease: No Data to Display Blood Cultures: No Data to Display Toxicology Panel: No Data to Display Imaging and Studies Imaging and Studies Study information below may be from another EMR and interpreted by another provider. Please see original notes in EMR for more complete details. EKG Summary: 12/04/2022: Exam: Resting ECG Reason for Exam: dizziness Patient Location: E HR:86 bpm ECG Measurements Heart Rate 86 AXIS MA 187 P 53 QRSd 95 QRS -6 QT 352 T35 QTc 421 Conclusion Sinus rhythm...normal P axis, V-rate 60- 99 Physician: no stemi Anesthesia Assessment and Plan Anesthesia History Personal History: No History of Anesthesia Complications and Other Family History: No Family History of Anesthesia Complications Exercise Tolerance Exercise Tolerance: Metabolic Equivalents>4 Pertinent Negatives Pertinent Negatives: No Symptoms of GERD Cardiac & Pulmonary Exam Cardiac Exam: Normal S1/S2 Heart Sounds Pulmonary Exam: Clear Bilateral Breath Sounds Implantable Cardiac Device Does patient have a Pacemaker or an ICD?: No Airway Exam Known Difficult Airway: No Mallampati Class: 2 Mouth Opening: Normal (> 3cm) Thyromental Distance: Greater than 3 cm Neck Range of Motion: Full ROM Neck Circumference: Thick Teeth Condition: Normal Dentition (Several teeth missing) ASA Classification ASA Score: ASA 3 Emergency Case?: No NPO Status NPO Status: NPO Clears >2 hours, Solids >8 hours Anesthesia Plan Resuscitation Status: Full Code Anesthesia Technique: General Anesthesia Airway Planned: LMA Monitors Used: Standard Monitors
[2023-09-18] MEDS: Lactated Ringers 1,000 ML 80 ML IV (13:13)
[2023-09-18] MEDS: ceFAZolin 2 GM/50 ML BAG IVPB (13:50)
[2023-09-18] MEDS: Bupivacaine 0.5% Pres-Free 30 ML VIAL (14:28)
--- NOTE | 2023-09-18 14:37 | W.PM.OP ---
Date of service: 09/18/23 Time of Service: 13:40 Operative Note Operative Note DATE OF PROCEDURE: 09/18/23 PRE-OP DIAGNOSIS: Right Knee Medial and Lateral Meniscus Tears POST-OP DIAGNOSIS: same PROCEDURE: Right Knee Arthroscopic Partial Medial and Lateral Menisectomies SURGEON: Bassam Sutton ANESTHESIA TYPE: General LMA/ETT Refer to Anesthesia Record ESTIMATED BLOOD LOSS: 0 PATHOLOGY: none sent TOURNIQUET TIME: 0 COMPLICATIONS: None Patient was transported to: PACU Patient's condition: stable Indications: I have seen Angela in clinic for symptoms of a meniscus tear. This was confirmed based on MRI and exam findings. Nonoperative measures were exhausted but disability and pain persisted. I discussed knee arthroscopy with meniscal intervention with the patient. I reviewed the risks of the procedure to include, but not limited to, bleeding, infection, pain, stiffness, damage to nerves or vessels, recurrence, blood clot. Despite these risks, the patient elected to proceed. Findings: A diagnostic arthroscopy was performed with the following findings: Suprapatellar Pouch: No significant inflammation, No loose bodies Medial Compartment: Complex medial meniscal tear isolated to the posterior horn, Intact meniscal root, No significant chondromalacia or signs of arthritis, No loose bodies Notch: ACL and PCL were intact Lateral Compartment: Complex primary radial tearing adjacent to the root with some undersurfacing tearing of the body, Partially torn root with a few peripheral fibers, Focal Grade IV fissue through the central lateral tibia, No loose bodies Patellofemoral Compartment: Grade II/III chondromalacia, No apparent patellar maltracking Procedure Description: Angela was greeted in the preoperative holding area where the correct side was identified and marked. The consent was reviewed with the patient and signed. The history and physical was updated. All questions were answered. She was taken back to the operating room. The patient was placed into the supine position on the operating room table. A nonsterile tourniquet was placed high onto the leg but not used. All bony prominences were well padded. Prophylactic antibiotics in the form of Cefazolin were administered. The right leg was then prepped with Chloraprep and draped in a standard fashion with stockinette and extremity drape. A timeout to confirm correct identity, side and site, procedure, allergies, anesthesia, and medical concerns was performed. The leg was placed into a pneumatic leg reynolds, [id number]. A standard lateral portal was made at the lateral border of the patella tendon in line with the inferior pole of the patella, soft spot. The skin and deep tissue was incised sharply and the blunt trochar was inserted atraumatically. A diagnostic arthroscopy was performed and the findings are listed above. The suprapatellar pouch had no significant inflammatory change. The patellofemoral articulation showed Grade II/III chondromalacia as well as good tracking. The lateral gutter had no loose bodies and the medial gutter had no loose bodies. The knee was brought into some valgus stress in extension to open the medial compartment. A medial portal was made, localized by a spinal needle. The portal was created with an #11 blade through skin and capsule under direct visualization avoiding any meniscal injury. A probe was then inserted into the medial compartment. The medial compartment was fully inspected. The chondral surface of the tibia showed no significant chondromalacia and the surface of the femur showed no significant chondromalacia. The medial meniscus had a small, [id number] tear at the posterior horn. After evaluation, the meniscus was debrided down to a stable base using a series of biters and arthroscopic joel. It was probed afterwards to confirm that the tear had been removed and the meniscus was stable. The notch was then inspected which showed an intact ACL and an intact PCL. The leg was then brought into a figure of 4 position. The lateral compartment was fully inspected with the arthroscope and a probe. The chondral surface of the lateral femur showed no significant chondromalacia. The chondral surface of the lateral tibia showed some Grade IV chondromalacia focally in the lateral compartment with a fissure runing in the coronal plane. The lateral meniscus had a complex, primary radial tear that involved almost the complete thickness of the meniscus with a few peripheral fibers remaining. There was also some undersurface tearing of the body. After evaluation, the meniscus was debrided down to a stable base using a series of biters and arthroscopic joel. It was probed afterwards to confirm that the tear had been removed and the meniscus was stable. Cartilage surfaces were debrided of any flaps, leaving any intact fibers. The arthroscope was brought back into the suprapatellar pouch and the leg was in full extension. The knee was thoroughly irrigated with the arthroscopic fluid on high flow and pressure. Inflow was stopped and excess fluid was removed. The wounds were closed with 4-0 Nylon. They were dressed with Xeroform, 4x4 gauze, ABD pad, Kerlix and an ALEKSANDRA wrap. A cryo-cuff was applied. The patient tolerated the procedure well and was returned to the PACU in a stable condition suffering no known complication.
[2023-09-18] MEDS: EPINEPHrine 1 MG/10 ML SYR (14:47)
--- NOTE | 2023-09-18 15:27 | W.ANESPOSTOP ---
Postoperative Evaluation Date, Time and Location Date Performed: 09/18/23 Time Performed: 15:27 Patient Location: PACU Vital Signs Most Recent Imported Vital Signs: Most Recent Vital Signs Temp Pulse Resp BP Pulse Ox 36.6 C 59 L 15 147/57 H 97 09/18/23 15:23 09/18/23 15:23 09/18/23 15:23 09/18/23 15:23 09/18/23 15:23 Pain Score Most Recent Pain Score: Most Recent Pain Score Pain Level 1 09/18/23 15:23 Assessment Mental Status: Awake (Alert & Oriented to Patient Baseline) Airway and Respiratory Function: Patent airway with normal (patient baseline) respiratory exam Cardiovascular Function: Hemodynamically Stable Hydration Status: Adequately Hydrated Nausea & Vomiting: No Nausea or Vomiting Pain: Pain is tolerable per patient Peripheral Nerve Block: Patient did not receive a nerve block
[2023-09-18] MEDS: HYDROcodone 5/Acetaminophen 325 TAB PO (15:40)
== END 2023-09-18 16:35 | disposition home or self-care (01) ==
PROVIDERS: PCP Nurse Practitioner Family; Visit Provider Student in an Organized Health Care Education/Training Program
PROC: (CPT 29870; principal; 2023-09-18 15:30)
DX: S83.281A Other tear of lateral meniscus, current injury, right knee, initial encounter (principal); S83.241A Other tear of medial meniscus, current injury, right knee, initial encounter; E11.9 Type 2 diabetes mellitus without complications; I10 Essential (primary) hypertension; X58.XXXA Exposure to other specified factors, initial encounter
CPT/HCPCS: 29880; J0690; J1100; J2250; J2405; J2704; J3010

== ENCOUNTER → 2023-10-01 09:16 | Outpatient (BNVA) | payer MEDICARE, SELFPAY | PROVIDERS: PCP Nurse Practitioner Family; Referring Provider Nurse Practitioner Family; Visit Provider Student in an Organized Health Care Education/Training Program | DX: S83.281D Other tear of lateral meniscus, current injury, right knee, subsequent encounter (principal); S83.241D Other tear of medial meniscus, current injury, right knee, subsequent encounter; X58.XXXD Exposure to other specified factors, subsequent encounter ==

== ENCOUNTER → 2023-11-21 13:12 | Outpatient (BNVA) | payer MEDICARE, SELFPAY | PROVIDERS: PCP Nurse Practitioner Family; Referring Provider Nurse Practitioner Family; Visit Provider Psychiatry & Neurology Neurology | DX: R41.3 Other amnesia (principal); G25.0 Essential tremor; H53.9 Unspecified visual disturbance | CPT/HCPCS: 99214 ==

== ENCOUNTER 2024-01-10 16:58 | Emergency (ER) | payer MEDICARE, SELFPAY ==
[2024-01-10 17:02] VITALS: BP 170/61; PULSE 69; RESP 20; TEMP 36.3; O2SAT 98
--- NOTE | 2024-01-10 17:15 | DI.CT_ITS ---
Exam(s) CT LOWER EXTREMITY LT WO EXAM: CT LOWER EXTREMITY LT WO CLINICAL HISTORY: left lateral foot pain, hx diabetes. TECHNIQUE: Imaging Protocol: Axial computed tomography images with coronal and sagittal reformatted images were created and reviewed. CONTRAST MATERIAL: Noncontrast COMPARISON: No exams were available for comparison FINDINGS: Bones: Plantar calcaneal spur. Two small bony fragments adjacent to the base of the 5th metatarsa l likely chronic. No bony erosions. No lytic or sclerotic lesions are identified. Joints: There is no significant joint space narrowing. No significant periarticular spurring. Soft Tissues: Edema. No focal collection. Calcification in distal Achilles tendon. IMPRESSION: No evidence of fracture or bony erosions. Soft tissue edema. No visible abscess. RADIATION DOSE DELIVERED: Total DLP DATA REPOSITORY: All CT scans at this facility are submitted to the National Radiology Data Registry (NRDR) Dose Index Registry (DIR) with the [employer] ([employer]). RADIATION OPTIMIZATION: All CT scans at this facility use at least one of these dose optimization te chniques: automated exposure control; mA and/or kV adjustment per patient size (includes targeted exa ms where dose is matched to clinical indication); or iterative reconstruction.
--- NOTE | 2024-01-10 17:31 | W.ED.GENAD ---
Discharge Plan Disposition Patient Disposition: Home Condition: Improving Discharge Details Chief Complaint: Orthopedic Clinical Impression: Fracture of 5th metatarsal Primary Care Provider: Alysha Borges ED Provider: Christian Rudd Home Meds and New Rx's Prescriptions: No Action omega 7-ofw-xda-fish oil [Fish Oil] 1,200 (144-216) mg capsule 1 cap PO DAILY fluticasone propionate [Flovent HFA] 110 mcg/actuation HFA aerosol inhaler 2 puff inhalation BID Qty: 36 4RF olmesartan 5 mg tablet 5 mg PO DAILY Qty: 90 3RF fluticasone propionate [Flonase Allergy Relief] 50 mcg/actuation spray,suspension 2 spray intranasal DAILY 30 Days Qty: 16 12RF Rx Instructions: administer into each nostril (DME) lancets 1 EACH misc 1 ea Miscellaneous DAILY Qty: 100 Patient Comments: pt. checked blood sugar three months ago Rx Instructions: DX:250.0 ONE TOUCH DELICA (DME) OneTouch Ultra Test 1 EACH strip 1 ea Miscellaneous BID Qty: 100 Patient Comments: pt. used three months ago albuterol sulfate [Proventil HFA] 90 mcg/actuation HFA aerosol inhaler 2 puff IH Q4H PRN (Reason: bronchospasm) Qty: 18 4RF glipizide 5 mg tablet 5 mg PO BID Qty: 180 3RF levothyroxine 50 mcg tablet 50 mcg PO DAILY Qty: 90 3RF metformin 1,000 mg tablet 1,000 mg PO BID Qty: 180 4RF dulaglutide 1.5 mg/0.5 mL pen injector 1.5 mg subcut QWEEK Qty: 2 3RF Glucosamine Chondroitin 550-30-1 mg capsule 2 cap PO DAILY PRN acetaminophen 500 mg tablet 1,000 mg PO Q8H PRN (Reason: pain) Qty: 60 2RF ibuprofen 600 mg tablet 600 mg PO HS PRN (Reason: pain) Qty: 30 3RF Rx Instructions: Take with food Discharge Instructions Instructions: Foot Fracture in Adults (ED) Additional Instructions: Please follow-up with podiatry. Continue with ice elevation and rest. HPI General Date/Time Provider Initiated Documentation: 01/10/24 17:02. HPI Narrative: 68-year-old female presents with left lateral foot pain over the last year worse over the last 3 months denies fevers chills nausea vomiting or other systemic signs of illness. Patient does have history of diabetes. Related Data Home Medications Medication Instructions Recorded Confirmed lancets 28 gauge #100 ea 02/26/13 01/10/24 blood sugar diagnostic (OneTouch #100 strips 01/15/17 01/10/24 Ultra Test strips) omega 4-pdr-ukk-fish oil 1,200 mg 1 cap PO DAILY 08/24/20 01/10/24 (144 mg-216 mg) capsule (Fish Oil) fluticasone propionate 110 2 puff inhalation BID #36 grams 03/30/22 01/10/24 mcg/actuation HFA aerosol inhaler (Flovent HFA) albuterol sulfate 90 mcg/actuation 2 puff inhalation Q4H PRN 07/03/22 01/10/24 aerosol inhaler (Proventil HFA) bronchospasm #18 grams fluticasone propionate 50 2 spray intranasal DAILY 30 days 10/25/22 01/10/24 mcg/actuation nasal #16 grams spray,suspension (Flonase Allergy Relief) olmesartan 5 mg tablet 5 mg PO DAILY #90 tabs 04/03/23 01/10/24 glipizide 5 mg tablet 5 mg PO BID #180 tab-caps 07/12/23 01/10/24 levothyroxine 50 mcg tablet 50 mcg PO DAILY #90 tabs 07/24/23 01/10/24 acetaminophen 500 mg tablet 1,000 mg (2 x 500 mg) PO Q8H PRN 09/18/23 01/10/24 pain #60 tabs ibuprofen 600 mg tablet 600 mg PO HS PRN pain #30 tabs 09/18/23 01/10/24 glucosamine sulf dipot 2 cap PO DAILY PRN 10/15/23 01/10/24 chlr,msm,chond 550 mg-C 30 mg-rylee 1 mg capsule (Glucosamine Chondroitin) metformin 1,000 mg tablet 1,000 mg PO BID #180 tab-caps 11/27/23 01/10/24 dulaglutide 1.5 mg/0.5 mL 1.5 mg (0.5 mL) subcut QWEEK #2 mL 01/08/24 01/10/24 subcutaneous pen injector Previous Rx's Medication Instructions Recorded fluticasone propionate 110 2 puff inhalation BID #36 grams 03/30/22 mcg/actuation HFA aerosol inhaler (Flovent HFA) albuterol sulfate 90 mcg/actuation 2 puff inhalation Q4H PRN 07/03/22 aerosol inhaler (Proventil HFA) bronchospasm #18 grams fluticasone propionate 50 2 spray intranasal DAILY 30 days 10/25/22 mcg/actuation nasal #16 grams spray,suspension (Flonase Allergy Relief) olmesartan 5 mg tablet 5 mg PO DAILY #90 tabs 04/03/23 glipizide 5 mg tablet 5 mg PO BID #180 tab-caps 07/12/23 levothyroxine 50 mcg tablet 50 mcg PO DAILY #90 tabs 07/24/23 acetaminophen 500 mg tablet 1,000 mg (2 x 500 mg) PO Q8H PRN 09/18/23 pain #60 tabs ibuprofen 600 mg tablet 600 mg PO HS PRN pain #30 tabs 09/18/23 metformin 1,000 mg tablet 1,000 mg PO BID #180 tab-caps 11/27/23 dulaglutide 1.5 mg/0.5 mL 1.5 mg (0.5 mL) subcut QWEEK #2 mL 01/08/24 subcutaneous pen injector Allergies Allergy/AdvReac Type Severity Reaction Status Date / Time aspirin Allergy Anaphylaxsi Verified 01/10/24 17:04 s atorvastatin AdvReac Intermediate Muscle pain Verified 01/10/24 17:04 General Stated Complaint: Orthopedic RASHAD: 4 Review of Systems Narrative: Review of Systems Constitutional: negative Eyes: negative ENT: negative Cardiovascular: negative Respiratory: negative Gastrointestinal: negative : negative Musculoskeletal: Foot pain Skin: negative Neurologic: negative Psych: negative Exam Narrative Exam Narrative: Physical Examination General: alert, awake, cooperative, resting comfortably, no acute distress HEENT: normocephalic, atraumatic Skin: See extremity Neuro: AAOx3, normal speech, moving all extremities Extremities: Point tenderness over base of fifth metatarsal, mild overlying erythema without induration fluctuance purulence or crepitus, DP pulse intact, sensation foot intact, range of motion toes foot ankle knee intact, no edema to ankle Course Vital Signs Vital signs: Vital Signs Temperature 36.3 C L 01/10/24 17:02 Pulse 69 01/10/24 17:02 Respiratory Rate 20 01/10/24 17:02 Blood Pressure 170/61 H 03/07/24 17:02 Pulse Oximetry 98 01/10/24 17:02 Temperature 36.3 C L 01/10/24 17:02 Temperature Source Temporal Artery Scan 01/10/24 17:02 Pulse 69 01/10/24 17:02 Respiratory Rate 20 01/10/24 17:02 Respiratory Effort Normal 01/10/24 17:14 Blood Pressure 170/61 H 01/10/24 17:02 Blood Pressure Position Sitting 01/10/24 17:02 Pulse Oximetry 98 01/10/24 17:02 Oxygen Delivery Method Room Air 01/10/24 17:02 Oxygen Flow Rate 0 01/10/24 17:02 Pain Level 6 01/10/24 17:02 Medical Decision Making 68-year-old female presents with 1 year of left lateral foot, worse over the last 3 months, afebrile nontoxic does not remember discrete injury recently however may have had a remote fall, history of diabetes, DP pulse intact neurovascular exam of limb intact, able to ambulate without issue, point tenderness over base of fifth metatarsal, mild overlying erythema without induration fluctuance crepitus or purulence. Consider poorly healed metatarsal fracture versus contusion versus must consider early cellulitis versus osteomyelitis however no warmth afebrile no systemic signs of illness, first arthritis low suspicion for DVT. Trial of anti-inflammatory, patient endorses she is able to take NSAIDs despite aspirin anaphylactic reaction, will obtain CT foot to better assess anatomy and possible old poorly healed fracture. 19: 23 2 small bony fragments at base of fifth metatarsal appears chronic likely remote fracture. Patient is also been using her left lower extremity more predominantly as she recently had right knee surgery consider exacerbation of old injury. Patient will be put in contact with podiatry and instructed to possibly follow-up with orthopedic surgery for persistent issues. Home care instructions and return precautions given. Patient does feel better after Toradol Quality:SDOH Health Related Social Needs: No Data to Display PFSH All Active Problems (Updated 01/10/24 @ 19:25 by Christian Rudd MD) Fracture of 5th metatarsal (Acute) Status post arthroscopy of right knee (Acute) DOS: 09/18/23 Tear of lateral meniscus of right knee (Acute) s/p right knee scope DOS: 09/18/23 Tear of medial meniscus of right knee (Acute) s/p right knee scope DOS: 09/18/23 Vision changes (Acute) Essential tremor (Acute) Trochanteric bursitis, left hip (Acute) Internal derangement of right knee (Acute) Steroid injection: 05/28/2023 Memory change (Acute) Kidney stone (Acute) Hypothyroidism (Chronic) Hoarseness (Acute) Michael's edema of vocal folds (Acute) Essential hypertension (Chronic 04/10/17) Hyperlipidemia (Chronic) Obesity (Chronic) Primary osteoarthritis of left hip (Chronic 10/25/16) Smoker (Chronic) quit 03/2022 Type II diabetes mellitus (Chronic) Allergic rhinitis (Acute) Asthma (Chronic) History of nasal polyp (Acute) Postnasal drip (Acute) Vocal cord polyp (Acute) Snoring (Acute) Medical History Menopausal state E coli bacteremia Acute UTI Trigger finger, left middle finger s/p left middle finger trigger release DOS: 10/26/20 Left cervical radiculopathy [facility]/25- stable Nephrocalcinosis Lumbosacral spondylosis without myelopathy Pain clinic injections didn't work 03/25 stable Surgical History History of appendectomy History of bilateral ligation of fallopian tubes History of umbilical hernia repair Status post breast biopsy Status post cholecystectomy Status post dilation and curettage Status post endometrial ablation Status post tonsillectomy S/P carpal tunnel release both S/P cataract surgery both S/P shoulder hemiarthroplasty Ligation of fallopian tube Tonsillectomy (02/09/1965) Repair of umbilical hernia (02/09/79) Endometrial Ablation (02/10/08) Dilation and curettage Cholecystectomy (02/09/79) Biopsy of breast Appendectomy (02/09/79) Family History Mother Diabetes Personal history of malignant neoplasm UTERINE Heart disease Father Personal history of malignant neoplasm liver Heart disease Social History Smoking/Tobacco Use Status: Former Tobacco Use tobacco type: cigarettes Quit Date: 03/05/22 Tobacco: How many years used: 50 Quit status: has quit before Second Hand Exposure: Yes Smoking risk assessment performed?: Yes Alcohol Intake: current Alcohol Intake frequency: a few times a month Alcohol type: hard liquor Drug use: Never Substance use type: does not use Caregiver/Support person: No Household members: spouse Housing: house Number of Children: 4 number of grandchildren: 11 Communication Needs: None Do you need help understanding health information?: Rarely 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 Pets and animals: Yes Pets and animals: cat(s) Sexually active: No Do you think of yourself as: straight/heterosexual Current gender identity: female What is your relationship status?: How often do you talk on the phone with friends or family?: three or more times per week How often do you get together with friends or relatives?: three or more times per week How often do you attend orthodox or mormonism services?: decline to answer Do you belong to any clubs or organized social groups?: decline to answer Panel score (0-1 are the most socially isolated patients): 2 What type of physical activity do you participate in: none Seatbelt use: always Helmet use: Yes Helmet use: always Drive intox or ride w/intox package delivery driver: No Do you feel safe at home: Yes Do you feel safe in your relationship?: Yes Additional Social history: Patient reports she feels safe at home with her spouse.
[2024-01-10] MEDS: Ketorolac 15 MG/ML VIAL IM (17:37)
--- NOTE | 2024-01-11 20:37 | NUR.NOTE ---
Referral faxed to [facility] Podiatry to f/u in a week for old 5th metatarcal fx.Nursing Note:
== END 2024-01-10 19:30 | disposition home or self-care (01) ==
PROVIDERS: Emergency Provider Emergency Medicine; PCP Nurse Practitioner Family
DX: S92.355A Nondisplaced fracture of fifth metatarsal bone, left foot, initial encounter for closed fracture (principal); E11.9 Type 2 diabetes mellitus without complications; I10 Essential (primary) hypertension; E78.5 Hyperlipidemia, unspecified; Z79.85 Long-term (current) use of injectable non-insulin antidiabetic drugs; Z79.84 Long term (current) use of oral hypoglycemic drugs; Z87.891 Personal history of nicotine dependence; X58.XXXA Exposure to other specified factors, initial encounter
CPT/HCPCS: 96372; 99284; 73700; J1885

== ENCOUNTER → 2024-03-10 07:57 | Outpatient (BNVA) | payer MEDICARE, SELFPAY | PROVIDERS: PCP Nurse Practitioner Family; Referring Provider Nurse Practitioner Family; Visit Provider Podiatrist | DX: M76.72 Peroneal tendinitis, left leg (principal); M79.675 Pain in left toe(s); L84 Corns and callosities; B35.1 Tinea unguium; M79.671 Pain in right foot | CPT/HCPCS: 29580; 99213; 29850 ==

== ENCOUNTER → 2024-03-13 00:23 | Outpatient (CLI) | payer MEDICARE, SELFPAY ==
--- NOTE | 2024-03-13 08:19 | DI.RAD_ITS ---
Exam(s) XR FOOT RT COMPLETE EXAM: XR FOOT RT COMPLETE CLINICAL HISTORY: M79.671 Pain in Rt foot, Comparison review. TECHNIQUE: 2D digital imaging was performed of the right foot. Three images were obtained. AP, obl ique and lateral views were obtained. COMPARISON: No exams were available for comparison FINDINGS: BONES: No acute fracture is present. No bony destructive lesion is seen. There is a small plantar martine caneal spur. With a small spur of the posterior aspect of the distal tibia. JOINTS: No dislocation present. The joint spaces are well maintained. There is some splaying of the 1st and 2nd toes but no soft tissue mass or calcification is seen. SOFT TISSUE: Normal. IMPRESSION: Calcaneal spur. DATA REPOSITORY: RADIATION DOSE DELIVERED:
--- NOTE | 2024-03-13 08:29 | DI.RAD_ITS ---
Exam(s) XR FOOT LT COMPLETE EXAM: XR FOOT LT COMPLETE CLINICAL HISTORY: M76.72 Peroneal tendinitis/accessory ossicles. TECHNIQUE: 2D digital imaging was performed of the left foot. Three images were obtained. AP, obli que and lateral views were obtained. COMPARISON: No exams were available for comparison FINDINGS: BONES: No acute fracture is present. No bony destructive lesion is seen. The sesamoids are unremarkab le. There is a small plantar calcaneal spur. There is no evidence of an os peroneum. There is a ca lcification lateral to the base of the 5th metatarsal which may lie within the distal peroneus brevis tendon. JOINTS: No dislocation present. The joint spaces are well maintained. SOFT TISSUE: Normal. IMPRESSION: 1. There is a calcification seen adjacent to the base of the 5th metatarsal bone which may represent calcification within the peroneus brevis tendon. 2. Calcaneal spur. DATA REPOSITORY: RADIATION DOSE DELIVERED:
== END ==
PROVIDERS: PCP Nurse Practitioner Family; Visit Provider Podiatrist
DX: M79.671 Pain in right foot (principal)
CPT/HCPCS: 73630

== ENCOUNTER → 2024-04-02 07:58 | Outpatient (BNVA) | payer MEDICARE, SELFPAY | PROVIDERS: PCP Nurse Practitioner Family; Referring Provider Nurse Practitioner Family; Visit Provider Podiatrist | DX: M76.72 Peroneal tendinitis, left leg (principal); M79.675 Pain in left toe(s); L84 Corns and callosities; B35.1 Tinea unguium; M79.671 Pain in right foot; G57.92 Unspecified mononeuropathy of left lower limb | CPT/HCPCS: 64455 ==

== ENCOUNTER → 2024-04-23 07:46 | Outpatient (BNVA) | payer MEDICARE, SELFPAY | PROVIDERS: PCP Nurse Practitioner Family; Referring Provider Nurse Practitioner Family; Visit Provider Podiatrist | DX: M76.72 Peroneal tendinitis, left leg (principal); M79.675 Pain in left toe(s); L84 Corns and callosities; B35.1 Tinea unguium; M79.671 Pain in right foot; G57.92 Unspecified mononeuropathy of left lower limb | CPT/HCPCS: 99213 ==

== ENCOUNTER 2024-05-14 16:16 | Outpatient (CLI) | payer MEDICARE, SELFPAY ==
--- NOTE | 2024-05-14 16:15 | RT.EKG_ITS ---
APPROVED REPORT Exam: Resting ECG Reason for Exam: Bladder infection Patient Location: O HR:98 bpm ECG Measurements Heart Rate 98 AXIS MA 177 P 59 QRSd 98 QRS 2 QT 353 T 59 QTc 451 Conclusion Sinus tachycardia...rate> 99 Normal Electrocardiogram
== END 2024-05-14 16:17 | disposition home or self-care (01) ==
LOC: DI.CM 16:16
PROVIDERS: PCP Nurse Practitioner Family; Visit Provider Nurse Practitioner Family
DX: R51.9 Headache, unspecified (principal); R06.02 Shortness of breath; I47.11 Inappropriate sinus tachycardia, so stated
CPT/HCPCS: 93010

== ENCOUNTER 2024-05-14 16:55 | Emergency (ER) | payer MEDICARE, SELFPAY ==
--- NOTE | 2024-05-14 16:45 | RT.EKG_ITS ---
APPROVED REPORT Exam: Resting ECG Reason for Exam: Chest Pain / SOB Patient Location: E HR:89 bpm ECG Measurements Heart Rate 89 AXIS CO 180 P 51 QRSd 100 QRS 7 QT 343 T 57 QTc 418 Conclusion Sinus rhythm...normal P axis, V-rate 60- 99 I have reviewed and interpreted ECG and agree with software generated interpretation.
[2024-05-14 16:58] VITALS: BP 167/50; PULSE 89; RESP 16; TEMP 36.9; O2SAT 94
--- NOTE | 2024-05-14 17:03 | DI.RAD_ITS ---
Exam(s) XR CHEST 2V PA LATERAL EXAM: XR CHEST 2V PA LATERAL CLINICAL HISTORY: SOB, CP TECHNIQUE: 2D digital imaging was performed of the chest. Two images were obtained. PA and lateral views were obtained. COMPARISON: CR XR RIBS RT W PA LAT CHEST from 07/27/2022 CR,XR XR CHEST 2V PA LATERAL from 10/02/2022 FINDINGS: MEDIASTINUM: Normal. HEART: Normal. PULMONARY VASCULATURE: Normal. LUNGS: Clear. PLEURAL SPACE: No pleural effusion or pneumothorax. BONE:Within normal limits for the patient's age. OTHER FINDINGS:There is surgical clips in the right upper quadrant of the abdomen which may reflect p rior cholecystectomy. IMPRESSION: No acute pulmonary findings. DATA REPOSITORY: RADIATION DOSE DELIVERED:
--- NOTE | 2024-05-14 17:15 | DI.CT_ITS ---
Exam(s) CT HEAD WO EXAM: CT HEAD WO CLINICAL HISTORY: new onset headache, today vomiting. TECHNIQUE: Imaging Protocol: Axial computed tomography images with coronal and sagittal reformatted images were created and reviewed COMPARISON: CT CT HEAD WO from 12/04/2022 FINDINGS: Ventricles and Extra axial spaces: Normal in size and morphology for the patient's age. Hemorrhage: None. Cerebral parenchyma: No mass effect is identified. The mckeno-white matter differentiation is well pre served. There is again seen a small extra-axial calcified lesion along the left parietal bone which likely reflects a meningioma. Midline shift: None. Brainstem/Cerebellum: Normal. Calvarium: Normal. Visualized Paranasal sinuses/Mastoids: Clear. Soft Tissues: Unremarkable. IMPRESSION: No acute intracranial process. RADIATION DOSE DELIVERED: 802.87mGy.cm Total DLP DATA REPOSITORY: All CT scans at this facility are submitted to the National Radiology Data Registry (NRDR) Dose Index Registry (DIR) with the [employer] (ACR). RADIATION OPTIMIZATION: All CT scans at this facility use at least one of these dose optimization te chniques: automated exposure control; mA and/or kV adjustment per patient size (includes targeted exa ms where dose is matched to clinical indication); or iterative reconstruction.
--- NOTE | 2024-05-14 17:17 | ED.GENADUL_ITS ---
Discharge Plan Disposition Patient Disposition: Home Condition: Stable Discharge Details Clinical Impression: Acute UTI, Essential hypertension, Hypomagnesemia Primary Care Provider: Alysha Borges ED Provider: Chhaya Chase Home Meds and New Rx's Prescriptions: New cefpodoxime 200 mg tablet 200 mg PO BID Qty: 20 0RF Rx Instructions: must administer with a meal/food Continued ketoconazole 2 % cream 1 applic topical DAILY Qty: 120 6RF Rx Instructions: Apply to toenails once daily omega 4-ckq-rvd-fish oil [Fish Oil] 1,200 (144-216) mg capsule 1 cap PO DAILY fluticasone propionate [Flovent HFA] 110 mcg/actuation HFA aerosol inhaler 2 puff inhalation BID Qty: 36 4RF olmesartan 5 mg tablet 5 mg PO DAILY Qty: 90 3RF fluticasone propionate [Flonase Allergy Relief] 50 mcg/actuation spray,suspension 2 spray intranasal DAILY 30 Days Qty: 16 12RF Rx Instructions: administer into each nostril lidocaine 5 % cream 1 applic topical BID Qty: 15 0RF (DME) lancets 1 EACH misc 1 ea Miscellaneous DAILY Qty: 100 Patient Comments: pt. checked blood sugar three months ago Rx Instructions: DX:250.0 ONE TOUCH DELICA (DME) OneTouch Ultra Test 1 EACH strip 1 ea Miscellaneous BID Qty: 100 Patient Comments: pt. used three months ago albuterol sulfate [Proventil HFA] 90 mcg/actuation HFA aerosol inhaler 2 puff IH Q4H PRN (Reason: bronchospasm) Qty: 18 4RF glipizide 5 mg tablet 5 mg PO BID Qty: 180 3RF levothyroxine 50 mcg tablet 50 mcg PO DAILY Qty: 90 3RF metformin 1,000 mg tablet 1,000 mg PO BID Qty: 180 4RF dulaglutide 1.5 mg/0.5 mL pen injector 1.5 mg subcut QWEEK Qty: 2 3RF Glucosamine Chondroitin 550-30-1 mg capsule 2 cap PO DAILY PRN acetaminophen 500 mg tablet 1,000 mg PO Q8H PRN (Reason: pain) Qty: 60 2RF ibuprofen 600 mg tablet 600 mg PO HS PRN (Reason: pain) Qty: 30 3RF Rx Instructions: Take with food Discharge Instructions Additional Instructions: Please call your primary care provider's office first thing in the morning to schedule a follow-up appointment within the week. Please stay well-hydrated. You are being treated for urinary tract infection/early kidney infection. Please take the full course of antibiotics as prescribed. You may use the Zofran provided for nausea as needed. Your magnesium today was low. I recommend that you use at home [id number] magnesium oxide supplement 400 mg daily. Have your primary care provider recheck this value at your next visit. Please return to emergency care if you develop new chest pain, shortness of breath, episodes of dizziness, uncontrollable vomiting, inability to urinate, or if you are very worried and need to be rechecked again immediately. Referrals: Alysha Borges NP [Primary Care Provider] - [facility] General Date/Time Provider Initiated Documentation: 05/14/24 16:59 . HPI Narrative: Radha is a 68-year-old female with history of T2DM, HTN, and HLD who presents to the emergency department from [facility] for evaluation of chest pain, shortness of breath, headache, and dysuria. She reports that she started having discomfort with urination couple of weeks ago, few days ago developed lower back pain. She is also had intermittent shooting pain to her right shoulder that she says is worse with sitting, says this has been going on for the last couple of days but got better today. Since the shoulder pain began she has had a frontal headache accompanied by phonophobia and photophobia, says this is unusual for her. She does say that she thinks she had migraines when she was younger, but does not recall if this is similar to this. Today Radha reports sudden onset of shortness of breath, describing as a tightness in her chest, accompanied by shaking chills and sweats, as well as nausea/vomiting. She denies recorded fevers, cough, wheezing, abdominal pain, change in bowel function, blood in stool or emesis, hematuria, episodes of passing out. Physical exam reassuring. Patient is alert and oriented, no acute distress. No facial droop noted. Easy work of breathing, lung sounds clear bilaterally. Normal heart sounds. Abdomen is soft, nondistended, nontender to palpation. No CVA tenderness. Moving all extremities equally, normal gait. Blood pressure was noted to be elevated, 167/50. DDx includes but is not limited to: ACS, pneumonia, pyelonephritis, dehydration, DKA/HHS, occult infection, GERD, anemia, muscle spasm. New onset headache after age 65 concerning for possible intracranial pathology such as ICH. I independently interpreted the following tests: EKG shows normal sinus rhythm, rate 89, no changes consistent with acute ischemia. CBC and CMP reassuring. Hypomagnesemia noted, 1.2. D-dimer very elevated, 1182. Slightly elevated BNP. Initial and 3-hour serial troponin negative. UA consistent with UTI. CTA chest negative, only 11 mm hypodense right thyroid lobe nodule noted, no cardiopulmonary findings. While in the emergency department Radha received IV fluids, Toradol, Benadryl, Reglan, Zofran, for migraine with full resolution of symptoms. Radha was able to tolerate PO without difficulty. Reports shortness of breath has fully resolved without intervention as well. Magnesium supplement was provided for replenis hment. As patient reports chills this afternoon accompanying UTI symptoms and positive UA, will treat for probable pyelonephritis with cefpodoxime 2 mg twice daily x 10 days with close follow-up. Related Data Home Medications Medication Instructions Recorded Confirmed lancets 28 gauge #100 ea 02/26/13 05/14/24 blood sugar diagnostic (OneTouch #100 strips 01/15/17 05/14/24 Ultra Test strips) omega 9-oqr-rmu-fish oil 1,200 mg 1 cap PO DAILY 08/24/20 05/14/24 (144 mg-216 mg) capsule (Fish Oil) fluticasone propionate 110 2 puff inhalation BID #36 grams 03/30/22 05/14/24 mcg/actuation HFA aerosol inhaler (Flovent HFA) albuterol sulfate 90 mcg/actuation 2 puff inhalation Q4H PRN 07/03/22 05/14/24 aerosol inhaler (Proventil HFA) bronchospasm #18 grams fluticasone propionate 50 2 spray intranasal DAILY 30 days 10/25/22 05/14/24 mcg/actuation nasal #16 grams spray,suspension (Flonase Allergy Relief) olmesartan 5 mg tablet 5 mg PO DAILY #90 tabs 04/03/23 05/14/24 glipizide 5 mg tablet 5 mg PO BID #180 tab-caps 07/12/23 05/14/24 levothyroxine 50 mcg tablet 50 mcg PO DAILY #90 tabs 07/24/23 05/14/24 acetaminophen 500 mg tablet 1,000 mg (2 x 500 mg) PO Q8H PRN 09/18/23 05/14/24 pain #60 tabs ibuprofen 600 mg tablet 600 mg PO HS PRN pain #30 tabs 09/18/23 05/14/24 glucosamine sulf dipot 2 cap PO DAILY PRN 10/15/23 05/14/24 chlr,msm,chond 550 mg-C 30 mg-rylee 1 mg capsule (Glucosamine Chondroitin) metformin 1,000 mg tablet 1,000 mg PO BID #180 tab-caps 11/27/23 05/14/24 dulaglutide 1.5 mg/0.5 mL 1.5 mg (0.5 mL) subcut QWEEK #2 mL 01/08/24 05/14/24 subcutaneous pen injector ketoconazole 2 % topical cream 1 applic topical DAILY #120 grams 03/10/24 05/14/24 lidocaine 5 % topical cream 1 applic topical BID pain #15 grams 04/02/24 05/14/24 cefpodoxime 200 mg tablet 200 mg PO BID #20 tabs 05/14/24 Previous Rx's Medication Instructions Recorded fluticasone propionate 110 2 puff inhalation BID #36 grams 03/30/22 mcg/actuation HFA aerosol inhaler (Flovent HFA) albuterol sulfate 90 mcg/actuation 2 puff inhalation Q4H PRN 07/03/22 aerosol inhaler (Proventil HFA) bronchospasm #18 grams fluticasone propionate 50 2 spray intranasal DAILY 30 days 10/25/22 mcg/actuation nasal #16 grams spray,suspension (Flonase Allergy Relief) olmesartan 5 mg tablet 5 mg PO DAILY #90 tabs 04/03/23 glipizide 5 mg tablet 5 mg PO BID #180 tab-caps 07/12/23 levothyroxine 50 mcg tablet 50 mcg PO DAILY #90 tabs 07/24/23 acetaminophen 500 mg tablet 1,000 mg (2 x 500 mg) PO Q8H PRN 09/18/23 pain #60 tabs ibuprofen 600 mg tablet 600 mg PO HS PRN pain #30 tabs 09/18/23 metformin 1,000 mg tablet 1,000 mg PO BID #180 tab-caps 11/27/23 dulaglutide 1.5 mg/0.5 mL 1.5 mg (0.5 mL) subcut QWEEK #2 mL 01/08/24 subcutaneous pen injector ketoconazole 2 % topical cream 1 applic topical DAILY #120 grams 03/10/24 lidocaine 5 % topical cream 1 applic topical BID pain #15 grams 04/02/24 cefpodoxime 200 mg tablet 200 mg PO BID #20 tabs 05/14/24 Allergies Allergy/AdvReac Type Severity Reaction Status Date / Time aspirin Allergy Anaphylaxsi Verified 05/14/24 17:06 s atorvastatin AdvReac Intermediate Muscle pain Verified 05/14/24 17:06 General Stated Complaint: Chest Pain RASHAD: 2 Review of Systems Narrative: see HPI Exam Const General: cooperative, healthy appearing, comfortable, no acute distress and well developed Nutritional Appearance: obese Resp Effort & Inspection: normal respiratory effort and able to speak in complete sentences Auscultation: clear to auscultation bilaterally Cardio Rate: regular rate Rhythm: regular rhythm GI Inspection: normal to inspection and obesity Palpation: soft and nontender General: No CVA tenderness Neuro General: patient alert, patient oriented x3, moves all extremities and no focal motor deficits Cognition: normal cognition Speech: speech normal Gait: normal gait Motor: muscle tone normal throughout and strength 5/5 throughout Extrem General: no pedal edema, no calf tenderness and normal gait Course Vital Signs Vital signs: Vital Signs Temperature 36.9 C 05/14/24 16:58 Pulse 89 05/14/24 16:58 Respiratory Rate 16 05/14/24 16:58 Blood Pressure 167/50 H 05/14/24 16:58 Pulse Oximetry 94 05/14/24 16:58 Temperature 36.9 C 05/14/24 16:58 Temperature Source Skin 05/14/24 16:58 Pulse 89 05/14/24 16:58 Respiratory Rate 16 05/14/24 16:58 Blood Pressure 167/50 H 05/14/24 16:58 Blood Pressure Position Sitting 05/14/24 16:58 Pulse Oximetry 94 05/14/24 16:58 Oxygen Delivery Method Room Air 05/14/24 16:58 Oxygen Flow Rate 0 05/14/24 16:58 Pain Level 3 05/14/24 16:58 Medical Decision Making Imaging Data Radiologic Study: Radiologist's impression: Exam: CTA Chest With Contrast Exam date and time: 05/14/2024 8:18 PM Age: 68 years old Clinical indication: Shortness of breath; Additional info: SOB, R shoulder pain, R/O pe TECHNIQUE: Imaging protocol: Computed tomographic angiography of the chest with contrast. Exam focused on the arteries. 3D rendering (Not supervised by radiologist): MIP and/or 3D reconstructed images were created by the technologist. Contrast material: OMNI 350; Contrast volume: 100 ml; Contrast route: INTRAVENOUS (IV); COMPARISON: CT CHEST LUNG CANCER SCREEN 06/12/2023 10:24 AM FINDINGS: Pulmonary arteries: No acute pulmonary emboli. Aorta: Mild atherosclerotic disease of the thoracic aorta, without aneurysm or dissection. Thyroid: 11 mm hypodense right posterior thyroid lobe nodule. Lungs: Unremarkable. No consolidation. No masses. Pleural spaces: Unremarkable. No pneumothorax. No pleural effusion. Heart: Unremarkable. No cardiomegaly. No pericardial effusion. Coronary arteries: Mild three-vessel coronary artery atherosclerotic disease. Lymph nodes: Several small lymph nodes within the mediastinum, likely reactive, but nonspecific. Gallbladder and biliary ducts: Gallbladder surgically absent. Bones/joints: Multilevel thoracic spine degenerative disc space narrowing and osteophyte formation. Soft tissues: Unremarkable. IMPRESSION:No acute pulmonary emboli. Quality:SDOH Health Related Social Needs: No Data to Display PFSH All Active Problems (Updated 05/14/24 @ 22:07 by Chhaya Thomason) Hypomagnesemia (Acute) Acute UTI (Acute) Neuritis of left foot (Acute) Pain in right foot (Acute) Onychomycosis (Acute) Corns and callosities (Acute) Pain around toenail, left foot (Acute) Peroneal tendinitis, left leg (Acute) Status post arthroscopy of right knee (Acute) DOS: 09/18/23 Tear of lateral meniscus of right knee (Acute) s/p right knee scope DOS: 09/18/23 Tear of medial meniscus of right knee (Acute) s/p right knee scope DOS: 09/18/23 Vision changes (Acute) Essential tremor (Acute) Trochanteric bursitis, left hip (Acute) Internal derangement of right knee (Acute) Steroid injection: 05/28/2023 Memory change (Acute) Kidney stone (Acute) Hypothyroidism (Chronic) Hoarseness (Acute) Michael's edema of vocal folds (Acute) Essential hypertension (Chronic 04/10/17) Hyperlipidemia (Chronic) Obesity (Chronic) Primary osteoarthritis of left hip (Chronic 10/25/16) Smoker (Chronic) quit 03/2022 Type II diabetes mellitus (Chronic) Allergic rhinitis (Acute) Asthma (Chronic) History of nasal polyp (Acute) Postnasal drip (Acute) Vocal cord polyp (Acute) Snoring (Acute) Medical History Menopausal state E coli bacteremia Acute UTI Trigger finger, left middle finger s/p left middle finger trigger release DOS: 10/26/20 Left cervical radiculopathy Pain clinic at [facility] 03/25- stable Nephrocalcinosis Lumbosacral spondylosis without myelopathy Pain clinic injections didn't work 03/25 stable Surgical History History of appendectomy History of bilateral ligation of fallopian tubes History of umbilical hernia repair Status post breast biopsy Status post cholecystectomy Status post dilation and curettage Status post endometrial ablation Status post tonsillectomy S/P carpal tunnel release both S/P cataract surgery both S/P shoulder hemiarthroplasty Ligation of fallopian tube Tonsillectomy (02/09/1965) Repair of umbilical hernia (02/09/79) Endometrial Ablation (02/10/08) Dilation and curettage Cholecystectomy (02/09/79) Biopsy of breast Appendectomy (02/09/79) Family History Mother Diabetes Personal history of malignant neoplasm UTERINE Heart disease Father Personal history of malignant neoplasm liver Heart disease Social History Smoking/Tobacco Use Status: Former Tobacco Use tobacco type: cigarettes Quit Date: 03/05/22 Tobacco: How many years used: 50 Quit status: has quit before Second Hand Exposure: Yes Smoking risk assessment performed?: Yes Alcohol Intake: current Alcohol Intake frequency: a few times a month Alcohol type: hard liquor Drug use: Never Substance use type: does not use Caregiver/Support person: No Household members: spouse Housing: house Number of Children: 4 number of grandchildren: 11 Communication Needs: None Do you need help understanding health information?: Rarely 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 Pets and animals: Yes Pets and animals: cat(s) Sexually active: No Do you think of yourself as: straight/heterosexual Current gender identity: female What is your relationship status?: How often do you talk on the phone with friends or family?: three or more times per week How often do you get together with friends or relatives?: three or more times per week How often do you attend mormon or zoroastrian services?: decline to answer Do you belong to any clubs or organized social groups?: decline to answer Panel score (0-1 are the most socially isolated patients): 2 What type of physical activity do you participate in: none Seatbelt use: always Helmet use: Yes Helmet use: always 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
[2024-05-14 17:55] LABS: Abs Immature Grans 0.04 10^3/uL (0.0-0.06); Absolute Basophil Count 0.02 10^3/uL (0.0-0.2); Absolute Eosinophil Count 0.03 10^3/uL (0.0-0.7); Absolute Lymphocyte Count 0.35 10^3/uL (1.2-3.4); Absolute Neutrophil Count 4.18 10^3/uL (1.2-6.7); Basophils % 0.4 %; Eosinophils % 0.6 %; HCT 33.7 % (36.0-46.0); Immature Grans % 0.8 %; Lymphocytes % 6.8 %; MCH 30.3 pg (27.0-33.0); MCHC 32.6 % (32.0-36.0); MCV 93 fL (80-95); MPV 9.9 fL (8.0-11.0); Monocytes % 9.8 %; Neutrophils % 81.6 %; Platelet Count 154 10^3/uL (130-400); RBC 3.63 10^6/uL (3.93-5.22); RDW 12.6 % (11.7-14.6); RDW-SD 43.2 fL; WBC 5.12 10^3/uL (4.4-10.8)
[2024-05-14 18:01] LABS: Lactate 0.9 mmol/L (0.6-1.4)
[2024-05-14 18:24] LABS: Lipase 17 U/L (16-77)
[2024-05-14 18:27] LABS: ALT 30 U/L (14-59); AST 15 U/L (15-37); Albumin 3.8 g/dL (3.4-5.0); Alkaline Phosphatase 88 U/L (46-116); Anion Gap 8.5 mmol/L (3-11); BUN 15 mg/dL (7-18); Bilirubin, Total 0.39 mg/dL (0.2-1.0); CO2 25.5 mmol/L (21.0-32.0); CREATININE 0.8 mg/dL (0.55-1.02); Calcium 8.9 mg/dL (8.5-10.1); Chloride 101 mmol/L (98-107); Estimated GFR 81.21 (mL/min/1.73m2); Glucose 150 mg/dL (74-106); Magnesium 1.2 mg/dL (1.8-2.4); Potassium 3.8 mmol/L (3.5-5.1); Sodium 135 mmol/L (136-145); Total Protein 7.4 g/dL (6.4-8.2); Troponin I < 50 ng/L (< or =60)
[2024-05-14 18:35] LABS: D-Dimer 1182 ng/mlFEU (<500)
[2024-05-14 18:37] LABS: NT-proBNP 441 pg/mL (<300)
[2024-05-14 18:38] LABS: TSH (W/Ref FT4) 2.81 uIU/mL (0.36-3.74)
--- NOTE | 2024-05-14 18:38 | DI.CT_ITS ---
Exam(s) CT CHEST PE CTA EXAM: CT CHEST PE CTA CLINICAL HISTORY: SOB, R shoulder pain, r/o PE. TECHNIQUE: Imaging Protocol: Axial CT angiography was performed with multi-slice acquisition and mu lti-planar reconstructions as well as axial, coronal and sagittal MIP reconstructions. CONTRAST MATERIAL: Intravenous: Omnipaque 350 Contrast volume:100 ml COMPARISON: MR MR cervical spine wo from 10/15/[address] CHEST LUNG CANCER SCREEN from 05/11/[address] CHEST/ABD/PEL WO from 12/04/[address] CHEST LUNG CANCER SCREEN from 06/12/2023 CR XR CHEST 2V PA LATERAL from 05/14/2024 FINDINGS: Pulmonary Arteries: No evidence of filling defect to suggest pulmonary emboli. Tracheobronchial tree: No mucous plugging. Mediastinum and Gilma: Mildly enlarged hilar and mediastinal lymph nodes may be reactive. Present on prior examinations. Pulmonary parenchyma: Limited evaluation due to expiratory changes and mild respiratory motion. No c onsolidation or dominant measurable mass. Pleura: No effusion or pneumothorax. Heart: The heart is dilated. coronary artery calcifications are seen. Aorta: Thoracic aorta non-dilated. No dissection. Mild atherosclerotic changes. Upper abdomen: No acute findings. Surgical clips in gallbladder fossa. Bones: Unremarkable for age. Tubes, Catheters, and Lines: None Soft tissues: Unremarkable. IMPRESSION: No evidence of pulmonary embolism or other acute abnormality. RADIATION DOSE DELIVERED: Total DLP DATA REPOSITORY: All CT scans at this facility are submitted to the National Radiology Data Registry (NRDR) Dose Index Registry (DIR) with the [employer] (ACR). RADIATION OPTIMIZATION: All CT scans at this facility use at least one of these dose optimization te chniques: automated exposure control; mA and/or kV adjustment per patient size (includes targeted exa ms where dose is matched to clinical indication); or iterative reconstruction.
[2024-05-14] MEDS: diphenhydrAMINE 50 MG/ML VIAL 25 MG IVP (19:55)
[2024-05-14] MEDS: Ketorolac 15 MG/ML VIAL IVP (19:56)
[2024-05-14] MEDS: Normal Saline 500 ML 1000 ML IV (19:56)
[2024-05-14] MEDS: Metoclopramide 10 MG/2 ML VIAL IVP (19:56)
[2024-05-14] MEDS: Normal Saline - Diluent 50 ML VIAL IJ (20:12)
[2024-05-14] MEDS: Omnipaque 350 MG/ML 100 ML BTL IJ (20:13)
[2024-05-14] MEDS: Magnesium Oxide 400 MG TAB PO (20:25)
[2024-05-14 20:42] LABS: Bilirubin Negative (Negative); Blood Trace-intact (Negative); Clarity Cloudy (Clear); Glucose Negative (Negative); Ketones Trace mg/dL (Negative); Leukocyte Esterase Trace (Negative); Nitrite Negative (Negative); Specific Gravity 1.025 (1.005-1.025); Urobilinogen 0.2 mg/dL (Up to 0.2); pH 5.5 (5-8)
[2024-05-14 20:51] LABS: Bacteria Many HPF (Negative); Crystals Negative HPF (Negative); Epithelial Cells Rare HPF (Negative); Mucus Negative (Negative); Other Cells Rare Transitional (Negative); RBC 0-2 HPF (0-2)
[2024-05-14 20:52] LABS: C & S Indicated? Yes
[2024-05-14 20:55] LABS: Troponin I < 50 ng/L (< or =60)
--- NOTE | 2024-05-14 21:09 | DI.VRAD_ITS ---
PROCEDURE INFORMATION: Exam: CTA Chest With Contrast Exam date and time: 05/14/2024 8:18 PM Age: 68 years old Clinical indication: Shortness of breath; Additional info: SOB, R shoulder pain, R/O pe TECHNIQUE: Imaging protocol: Computed tomographic angiography of the chest with contrast. Exam focused on the arteries. 3D rendering (Not supervised by radiologist): MIP and/or 3D reconstructed images were created by the technologist. Contrast material: OMNI 350; Contrast volume: 100 ml; Contrast route: INTRAVENOUS (IV); COMPARISON: CT CHEST LUNG CANCER SCREEN 06/12/2023 10:24 AM FINDINGS: Pulmonary arteries: No acute pulmonary emboli. Aorta: Mild atherosclerotic disease of the thoracic aorta, without aneurysm or dissection. Thyroid: 11 mm hypodense right posterior thyroid lobe nodule. Lungs: Unremarkable. No consolidation. No masses. Pleural spaces: Unremarkable. No pneumothorax. No pleural effusion. Heart: Unremarkable. No cardiomegaly. No pericardial effusion. Coronary arteries: Mild three-vessel coronary artery atherosclerotic disease. Lymph nodes: Several small lymph nodes within the mediastinum, likely reactive, but nonspecific. Gallbladder and biliary ducts: Gallbladder surgically absent. Bones/joints: Multilevel thoracic spine degenerative disc space narrowing and osteophyte formation. Soft tissues: Unremarkable. IMPRESSION: No acute pulmonary emboli. Dictated and Authenticated by: Ángel Meehna MD. Ordering:JOURDAN Shaver MD
[2024-05-14 21:30] VITALS: BP 134/39; PULSE 79; PULSE 81; RESP 22; O2SAT 90
[2024-05-14 22:00] VITALS: BP 131/60; PULSE 73; RESP 22
[2024-05-14] MEDS: Cefpodoxime 200 MG TAB PO (22:08)
[2024-05-14 22:19] VITALS: TEMP 37; TEMP 37.1; O2SAT 96
--- NOTE | 2024-05-15 00:29 | NUR.NOTE ---
Pt placed on care management referral list to see PCP for UTI to be seen within 1 week per JESS Lentz.
== END 2024-05-14 22:19 | disposition home or self-care (01) ==
PROVIDERS: Emergency Provider Nurse Practitioner Family; PCP Nurse Practitioner Family
DX: N39.0 Urinary tract infection, site not specified (principal); I10 Essential (primary) hypertension; E83.42 Hypomagnesemia; E11.9 Type 2 diabetes mellitus without complications; E78.5 Hyperlipidemia, unspecified; Z90.49 Acquired absence of other specified parts of digestive tract; Z87.891 Personal history of nicotine dependence
CPT/HCPCS: 36415; 71275; 80053; 82962; 83690; 87077; 93005; 96361; 96374; 96375; 99285; 70450; 71046; 81003; 81015; 83605; 83735; 83880; 84443; 84484; 85025; 85379; 87086; 87186; 93010; J1200; J1885; J2765; J3490

== ENCOUNTER → 2024-05-28 08:15 | Outpatient (BNVA) | payer MEDICARE, SELFPAY | PROVIDERS: PCP Nurse Practitioner Family; Referring Provider Nurse Practitioner Family; Visit Provider Podiatrist | DX: G57.62 Lesion of plantar nerve, left lower limb (principal); M76.72 Peroneal tendinitis, left leg; M79.675 Pain in left toe(s); M79.671 Pain in right foot; L84 Corns and callosities; B35.1 Tinea unguium | CPT/HCPCS: 64455; J0702; J1100 ==

== ENCOUNTER → 2024-06-25 09:03 | Outpatient (BNVA) | payer MEDICARE, SELFPAY | PROVIDERS: PCP Nurse Practitioner Family; Referring Provider Nurse Practitioner Family; Visit Provider Podiatrist | DX: G57.92 Unspecified mononeuropathy of left lower limb (principal); M76.72 Peroneal tendinitis, left leg; M79.675 Pain in left toe(s); M79.671 Pain in right foot; L84 Corns and callosities; B35.1 Tinea unguium | CPT/HCPCS: 99213 ==

== ENCOUNTER 2024-08-07 10:16 | Outpatient (CLI) | payer MEDICARE, SELFPAY ==
--- NOTE | 2024-08-07 08:00 | DI.RAD_ITS ---
Exam(s) XR LUMBAR SPINE AP, LAT EXAM: XR LUMBAR SPINE AP, LAT CLINICAL HISTORY: low back pain. TECHNIQUE: 2D digital imaging was performed. AP and lateral standing views. COMPARISON: CT CT CHEST/ABD/PEL WO from 12/04/2022 CR XR DEXA BONE DENSITY W/WO DENNIS from 06/12/[address] CHEST PE CTA from 05/14/2024 FINDINGS: The exam is limited by under penetration. No compression fractures. Disc spaces are maintained. There is severe facet degenerative changes. There is slight spondylo listhesis at L4-5. No scoliosis. Osteophytes noted at L1-2. Degenerative changes are seen in the SI joints. Right upper quadrant surgical clips IMPRESSION: Degenerative changes mainly of the facet joints, greatest at L4-5 causing slight spondylolisthesis. DATA REPOSITORY: RADIATION DOSE DELIVERED:
--- NOTE | 2024-08-07 08:00 | DI.RAD_ITS ---
Exam(s) XR KNEE RT 4V AP,LAT,CYN,PAT EXAM: XR KNEE RT 4V AP,LAT,CYN,PAT CLINICAL HISTORY: R knee pain. TECHNIQUE: 2D digital imaging was performed of the right knee. Four views obtained. Merchant, AP, la teral and PA tunnel views were obtained. COMPARISON: CR XR KNEE RT 3V AP,LAT,CYN from 05/28/2023 FINDINGS: BONES: No acute fracture is present. No bony destructive lesion is seen. JOINTS: There is mild narrowing of the femoral tibial joint. There is a small joint effusion. SOFT TISSUE: Vascular calcifications are present. IMPRESSION: Mild joint space narrowing and small joint effusion. DATA REPOSITORY: RADIATION DOSE DELIVERED:
--- NOTE | 2024-08-07 08:00 | DI.RAD_ITS ---
Exam(s) XR HIP LT COMPLETE AP PELVIS EXAM: XR HIP LT COMPLETE AP PELVIS CLINICAL HISTORY: L hip pain. TECHNIQUE: 2D digital imaging was performed of the left hip. Two views were obtained. AP pelvis an d lateral left hip views were obtained. CR XR DEXA BONE DENSITY W/WO DENNIS from 06/12/2023 FINDINGS: BONES: No acute fracture is present. No bony destructive lesion is seen. JOINTS: There has been progression of the degenerative changes in the left hip which are now moderate to severe inner with joint space narrowing and osteophytes present. There also degenerative changes seen at the sacroiliac joints in the lower lumbar spine. The right hip is well maintained. SOFT TISSUE: Vascular calcifications are present. IMPRESSION: Progression of the degenerative changes seen in the left hip. DATA REPOSITORY: RADIATION DOSE DELIVERED:
== END 2024-08-07 10:17 | disposition home or self-care (01) ==
LOC: DIORS 10:16
PROVIDERS: PCP Nurse Practitioner Family; Referring Provider Nurse Practitioner Family; Visit Provider Student in an Organized Health Care Education/Training Program
DX: M16.12 Unilateral primary osteoarthritis, left hip; M17.11 Unilateral primary osteoarthritis, right knee; M48.05 Spinal stenosis, thoracolumbar region
CPT/HCPCS: 99213; 72100; 73502; 73564

== ENCOUNTER → 2024-08-08 13:55 | Outpatient (BNVA) | payer MEDICARE, SELFPAY | PROVIDERS: PCP Nurse Practitioner Family; Referring Provider Nurse Practitioner Family; Visit Provider Urology | DX: N20.0 Calculus of kidney (principal); Z87.442 Personal history of urinary calculi | CPT/HCPCS: 76775; 81003 ==

== ENCOUNTER 2024-08-26 01:01 | Outpatient (CLI) | payer MEDICARE, SELFPAY ==
--- NOTE | 2024-08-26 06:15 | DI.MRI_ITS ---
Exam(s) MR LUMBAR SPINE WO EXAM: MR LUMBAR SPINE WO CLINICAL HISTORY: PAIN,spinal stenosis,m48.00. TECHNIQUE: Multiplanar multisequence MRI of the Lumbar spine was performed. COMPARISON: MR MRI - LUMBAR SPINE WO CONTRAST from 03/09/2015 CR XR LUMBAR SPINE AP, LAT from 08/07/2024 FINDINGS: Conus medullaris is at normal level. There is no evidence of conus mass nor subjacent clumping of in trathecal nerve roots to suggest arachnoiditis. The distal thecal sac appears unremarkable.There is no evidence of Tarlov intrasacral cysts nor other significant findings within the sacral canal Bones:There are no fractures nor ominous osseous lesions in the lumbar vertebral bodies and visualize d sacrum. Benign intraosseous hemangiomas again noted in T11 and L1, unchanged With respect to the individual levels... T11-12: This level is only imaged in the sagittal plane. There is broad annular bulging at this leve l noted which indents the thecal sac. T12-L1: Unremarkable L1-2: Normal disc height and signal. No disc herniation nor central canal stenosis.No foraminal steno sis L2-3: Normal disc height. Mild posterior annular bulging without a dominant disc herniation. Central canal dimensions are lower normal. Annular bulging extends into the floor of the exiting neural for lawrence bilaterally but there is no significant foraminal stenosis on either side at this level. There is some facet arthropathy left more than right at this level. L3-4: Preserved disc height. Posteriorly there is broad annular bulging again noted which extends in to the floor of the exiting left neural foramen with mild disc protrusion at this level more so than previous. Results in some unilateral left side foraminal narrowing more so than previous. There is no foraminal stenosis on the opposite-right side at this level. Moderate degenerative changes are no ximena in both facet joints. Central canal dimensions are lower normal. L4-5: This level again exhibits mild degenerative anterolisthesis of L4 upon L5 related to advanced f acet arthropathy both facet joints, similar to previous. There is approximately 2 mm anterior slippa ge of L4 upon L5 which has not increased from previous. Although there is no distinct focal disc her niation, there is moderate-severe central spinal canal stenosis noted related to the listhesis and an nular bulging and lateral recesses being carried forward. He however, there does not appear to be si gnificant foraminal stenosis on either side at this level. L5-S1: This level again exhibits normal disc height. No disc herniation or central canal stenosis at this level. There are mild degenerative changes in the facet joints, right more than left. There i s no significant foraminal stenosis on either side at this level. Soft tissues: paraspinal soft tissues appear unremarkable. IMPRESSION: 1. Compared to the prior MRI scan of 2014 at the L3-4 level there is now some narrowing of the exitin g left neural foramen due to increased annular bulging on the left side at the level of the exiting l eft neural foramen. This results in an element of unilateral left foraminal narrowing, more so than previous. 2. Moderate-severe central spinal canal stenosis again noted at L4-5 level related to degenerative an terolisthesis. There does not appear to be significant foraminal stenosis on either side at this lev el. 3. Other findings as above. DATA REPOSITORY:
== END 2024-08-26 01:21 ==
LOC: DI 01:01
PROVIDERS: PCP Nurse Practitioner Family; Visit Provider Student in an Organized Health Care Education/Training Program
DX: M48.061 Spinal stenosis, lumbar region without neurogenic claudication (principal)
CPT/HCPCS: 72148

== ENCOUNTER 2024-09-23 10:51 | Outpatient (CLI) | payer MEDICARE, SELFPAY ==
[2024-09-23 11:07] VITALS: BP 160/68; PULSE 67; RESP 18; TEMP 36.2; O2SAT 98
[2024-09-23 11:32] VITALS: O2SAT 95
[2024-09-23 11:40] VITALS: O2SAT 98
--- NOTE | 2024-09-23 11:46 | DI.RAD_ITS ---
Exam(s) XR PAIN CLINIC LUMBAR SP 2V EXAM: XR PAIN CLINIC LUMBAR SP 2V CLINICAL HISTORY: DX: Lumbar Radiculopathy. TECHNIQUE: Fluoroscopy was provided for the referring physician for guidance with performing pain cl inic injection procedure. COMPARISON: No exams were available for comparison FINDINGS: Please see procedure note for details. Fluoro time: 24.1 seconds RADIATION DOSE DELIVERED: Ka,r=21.75 mGy
--- NOTE | 2024-09-23 11:48 | PDOC.PAIN_ITS ---
Date of service: 09/23/24 Time of Service: 12:01 Pain Managment Procedure Note Procedure Note Procedure Note: Lumbar Interlaminar Epidural Steroid Injection ? Location: L5-S1 ? Pre-procedure Diagnosis: M54.16- Radiculopathy, LUMBAR region ? Post-procedure Diagnosis:? The same as above ? Sedation:? ? None ? Medication: Depo-Medrol 80 mg, Omnipaque 1 mL ? Estimated blood loss:? less than 2 cc ? Surgeon:? Darek Green MD COMMENT: Compared to the prior MRI scan of 2015 at the L3-4 level there is now some narrowing of the exiting left neural foramen due to increased annular bulging on the left side at the level of the exiting left neural foramen. This results in an element of unilateral left foraminal narrowing, more so than previous. 2. Moderate-severe central spinal canal stenosis again noted at L4-5 level related to degenerative anterolisthesis. There does not appear to be significant foraminal stenosis on either side at this level. ? Procedure Detail:? The procedure and potential risks were explained to the patient and informed written consent was obtained. The patient was escorted to the procedure room and placed in the prone position. Pillows were utilized for proper positioning and comfort. Time out was performed in the procedure room with nursing staff confirming the patient's identity, procedure to be performed, allergies, and any blood thinning or anti-platelet medications.? The patient's neck and upper back was prepped with ChloraPrep and draped in a sterile fashion. Sterile technique was maintained throughout the procedure.? Sterile gloves were used, a face mask was worn, and new single dose vials of all medications were used with the top being swabbed with alcohol and given time to dry prior to withdrawal of medication. Lidocane 1% was used to anesthetize the skin.Using a 25-gauge 1.5 inch needle, 1% lidocaine was instilled into the superficial soft tissue overlying the targeted area to provide local anesthesia. With fluoroscopic guidance, a 17 -gauge Tuohy needle was advanced toward the interlaminar space of L5-S1. The needle was then advance through the ligamentum flavum and into the posterior epidural space using the loss of resistance tech nique. Correct needle placement was confirmed through review of the AP and contralateral oblique fluoroscopic views. Following negative aspiration, one cc of Omnipaque 240 contrast was injected whi ch confirmed good flow throughout the epidural space and no evidence of vascular flow or flow into adjacent compartments. Next, following negative aspiration, 1 cc's of normal saline and 80mg of Depo-Medrol was injected. The needle was gently removed. The patient tolerated the procedure well and was transported to the recovery area for observation and discharge instructions. Permanent images saved and recorded. PAIN PRE-PROCEDURE 10 POST-PROCEDURE 010 Plan:? Follow up prn. COMMENT: repeat prn. consider intra-articular hip injection left if that still problematic and not contemplating surgery
[2024-09-23] MEDS: Normal Saline 20 ML VIAL 10 ML IJ (11:52)
[2024-09-23] MEDS: Omnipaque 240 MG/ML 50 ML BTL IJ (11:52)
[2024-09-23] MEDS: methylPREDNISolone ACETATE 40 MG/ML VIAL IJ (11:52)
== END 2024-09-23 10:52 | disposition home or self-care (01) ==
LOC: PC 10:52
PROVIDERS: PCP Nurse Practitioner Family; Visit Provider Anesthesiology Pain Medicine
DX: M54.50 Low back pain, unspecified (principal); M54.16 Radiculopathy, lumbar region
CPT/HCPCS: 00123; 62323; 72100; J1010; Q9967

== ENCOUNTER → 2024-11-19 09:09 | Outpatient (BNVA) | payer MEDICARE, SELFPAY | PROVIDERS: PCP Nurse Practitioner Family; Visit Provider Psychiatry & Neurology Neurology | DX: R41.3 Other amnesia (principal); G25.0 Essential tremor | CPT/HCPCS: 99214 ==

== ENCOUNTER 2025-04-13 15:44 | Outpatient (CLI) | payer MEDICARE, SELFPAY ==
--- NOTE | 2025-04-13 14:15 | DI.RAD_ITS ---
Exam(s) XR KNEE LT 3V AP,LAT,CYN EXAM: XR KNEE LT 3V AP,LAT,CYN CLINICAL HISTORY: eval L knee pain. TECHNIQUE: 2D digital imaging was performed of the left knee. Three images were obtained. AP, late ral and PA tunnel views were obtained. COMPARISON: CR LEFT KNEE 4+ VIEWS from 01/13/2018 CR XR KNEE RT 4V AP,LAT,CYN,PAT from 08/07/2024 FINDINGS: BONES: No acute fracture is present. No bony destructive lesion is seen. JOINTS: There are small osteophytes seen in the lateral femoral tibial joint and the posterior patell a. No significant joint effusion is seen. No loose body. SOFT TISSUE: Atherosclerotic calcification is present. IMPRESSION: Mild degenerative changes of the left knee. DATA REPOSITORY: RADIATION DOSE DELIVERED:
== END 2025-04-13 15:45 | disposition home or self-care (01) ==
LOC: DIORS 15:44
PROVIDERS: PCP Nurse Practitioner Family; Referring Provider Nurse Practitioner Family; Visit Provider Student in an Organized Health Care Education/Training Program
DX: M25.562 Pain in left knee (principal); M17.11 Unilateral primary osteoarthritis, right knee; M48.061 Spinal stenosis, lumbar region without neurogenic claudication; M16.11 Unilateral primary osteoarthritis, right hip; M16.12 Unilateral primary osteoarthritis, left hip; S83.281A Other tear of lateral meniscus, current injury, right knee, initial encounter; S83.241A Other tear of medial meniscus, current injury, right knee, initial encounter; Z98.890 Other specified postprocedural states
CPT/HCPCS: 99214; 20610; 73562; J1010

== ENCOUNTER 2025-05-25 13:47 | Outpatient (REF) | payer MEDICARE, SELFPAY ==
[2025-05-25 16:26] LABS: COMMENT (LAB VIEW ONLY) 19.02 mg/dL
[2025-05-25 16:36] LABS: Microalb ug/mg Crea 114.6 ug/mg Cr
== END 2025-05-25 13:48 | disposition home or self-care (01) ==
LOC: LBN 13:47
PROVIDERS: PCP Nurse Practitioner Family; Visit Provider Nurse Practitioner Family
DX: E11.9 Type 2 diabetes mellitus without complications (principal)
CPT/HCPCS: 82043; 82570

== ENCOUNTER 2025-05-28 00:57 | Outpatient (CLI) | payer MEDICARE, SELFPAY ==
--- NOTE | 2025-05-28 06:45 | DI.NM_ITS ---
APPROVED REPORT Exam: Pharmacologic Patient Location: Out-Patient Room/Bed: Stress Nurse: Chhaya Chandler RN Ordering Provider:DAREN SOLORZANO, Contact Number: [phone] BMI: 44.10 Baseline Rhythm: Sinus Rhythm Indications: chest pain with rest and activity Medical History Medical History: DM2, HTN, HLD, essential tremor, hypothyroid, former smoker, asthma, b/l knee arthritis Cardiac Medications: magnesium oxide, albuterol sulfate, levothyroxine, primidone, metformin, celecoxib, glipizide, nitroglycerin, olmesartan, mounjaro Allergies: aspirin, atorvastatin Cardiac Risk Factors: family hx, HTN, HLD, diabetes, asthma, former smoker, obesity Previous Cardiac Procedures: n/a Pretest Chest Pain Characteristics: No chest pain Exercise History: Sedentary Physical Disabilities: Knees Lung Sounds: Clear to auscultation Heart Sounds: Regular Stress Test Details Test: Pharmacologic stress testing performed using 0.4 mg of regadenoson per 5 mL given IV over 10 seconds. Reason for pharmacologic stress test: physical limitation. Nuclear Acquisition: Rest Tc-99m/Stress Tc-99m 1 day Rest Isotope: Tc-99m Sestamibi. Dose: 12.0 Date: 05/28/2025 Injection Time: 0845 Stress Isotope: Tc-99m Sestamibi. Dose: 36.0 Date: 05/28/2025 Injection Time: 1008 HR Resting HR Supine: 64 bpm Max Heart Rate (APMHR): 153 bpm Target HR (85% APMHR): 130 bpm Max HR Achieved: 87 bpm % of APMHR: 57 Recovery HR: 75 bpm BP Resting BP Supine: 136/60 mmHg Max BP: 138/42 mmHg Recovery BP: 134/50 mmHg ECG Resting ECG: Sinus Rhythm, 1st degree AV block Ectopy: n/a Stress ECG: Sinus Rhythm, 1st degree AV block ST Change: Nondiagnostic low heart rate Arrhythmia: n/a Recovery ECG: Sinus Rhythm, 1st degree AV block Recovery ST Change: Nondiagnostic low heart rate Recovery Arrhythmia: n/a Clinical Stress Symptoms: Chest pain, Abdominal discomfort Angina Score: None Rate Pressure Product: [id number] Stress ECG Conclusion 1. Resting electrocardiogram was normal 2. Patient underwent testing using pharmacologic stress with regadenoson 3. Peak heart rate achieved was 57% of maximal predicted for age 4. The electrocardiographic portion of the test was nondiagnostic 5. See MPI report Stress Test Summary STAGE HR BP SpO2 Symptoms NOTES Supine 64 136/60 95 1 min post Lexiscan injection 75 120/66 96 5/10 chest tightness 3 min post Lexiscan injection 77 138/42 96 3/10 chest tightness; 5/10 abdominal pain 6 min post Lexiscan injection 75 134/50 96 3/10 abdominal pain Laying dameon test performed r/t patient's chronic physical limitations/arthritis. Pt experienced 5/10 chest tightness and 5/10 abdominal pain during test. All symptoms resolved by end of test. Pt left ambulatory in no acute distress. MPI Conclusion Myocardial perfusion is normal. There is no ischemia or evidence of prior infarction Ejection fraction is within the range of normal, with normal wall motion
[2025-05-28] MEDS: Regadenoson 0.4 MG/5 ML SYR IVP (10:08)
== END 2025-05-28 01:17 ==
LOC: DI 00:57
PROVIDERS: PCP Nurse Practitioner Family; Visit Provider Internal Medicine Cardiovascular Disease
DX: R07.9 Chest pain, unspecified (principal); I20.89 Other forms of angina pectoris
CPT/HCPCS: 78452; 93016; 93018; 93017; J2785

== ENCOUNTER 2025-10-06 19:56 | Outpatient (REF) | payer MEDICARE, SELFPAY ==
[2025-10-06 15:37] LABS: Glucose 100 mg/dL (Negative)
[2025-10-06 15:48] LABS: RBC Negative HPF (0-2); WBC 20-50 HPF (0-5)
== END 2025-10-06 19:57 | disposition home or self-care (01) ==
LOC: LBN 19:56
PROVIDERS: PCP Nurse Practitioner Family; Visit Provider Nurse Practitioner Family
DX: R30.0 Dysuria (principal); B96.1 Klebsiella pneumoniae [K. pneumoniae] as the cause of diseases classified elsewhere
CPT/HCPCS: 81003; 81015